=== PATIENT | male | born 1940 | race Caucasian/White ===

== ENCOUNTER → 2016-07-09 | Outpatient (CLI) | payer MEDICARE, BC ==
[~2016-07-09] MED LIST: COUM2.5T11 PO; DICY1CAP8 PO; DOXA1TAB72 PO; METO25TA74 PO; METO5TAB2 PO; METR1GEL4 TOP; MINO100C PO; MIRA3350 PO; MONT10TA2 PO; NEUR300C PO; NORV5TAB PO; OXYB5TAB PO; PERC5TAB6 PO; POLY33502 PO; PREV30CA11 PO; REFR1DRO6 OU; SALI0.653; SIMV10TA2 PO; TYLE325T5 PO; WARF-23 PO; [UNRECOGNIZED DRUG - CODE] OU
[2016-07-09 16:57] LABS: CALCIUM LEVEL 8.6 MG/DL (8.8-10.2); CREATININE FOR GFR 1.28 MG/DL (0.70-1.30); GLOMERULAR FILTRATION RATE 57.9 (>42); POTASSIUM SERUM 4.7 MEQ/L (3.5-5.1)
== END ==
LOC: M LAB 15:29
PROVIDERS: ATTEND Internal Medicine Cardiovascular Disease
DX: E87.5 Hyperkalemia (principal)

== ENCOUNTER 2016-07-23 07:47 | Emergency (ER) | payer MEDICARE, BC ==
[~2016-07-23] VITALS: Ht 175.3 cm; Wt 101.6 kg
[2016-07-23] MEDS ORDERED: DETR4CAP10 PO (08:33)
[2016-07-23 09:21] LABS: BASO % 0.9 % (0.0-1.0); EOS # 0.2 K/mm3 (0.0-0.50); EOS % 3.6 % (0.0-3.0); LARGE UNSTAINED CELL # 0.2 K/mm3 (0.0-0.4); LARGE UNSTAINED CELL % 2.8 % (0.0-4.0); LYMPH # 0.7 K/mm3 (1.5-4.5); LYMPH % 11.9 % (24.0-44.0); MEAN CORPUSCULAR HEMOGLOBIN 33.8 pg (27.0-33.0); MEAN CORPUSCULAR HGB CONC 34.2 g/dl (32.0-36.5); MEAN CORPUSCULAR VOLUME 98.8 fl (80.0-96.0); MONO # 0.4 K/mm3 (0.0-0.8); MONO % 7.7 % (0.0-5.0); NEUTROPHILS % 73.1 % (36.0-66.0); PLATELET COUNT, AUTOMATED 168 k/mm3 (150-450); WHITE BLOOD COUNT 5.4 K/mm3 (4.0-10.0)
[2016-07-23 09:52] LABS: ANION GAP 6 MEQ/L (8-16); BLOOD UREA NITROGEN 22 MG/DL (7-18); CALCIUM LEVEL 8.6 MG/DL (8.8-10.2); CARBON DIOXIDE LEVEL 29 MEQ/L (21-32); CHLORIDE LEVEL 103 MEQ/L (98-107); CREATININE FOR GFR 1.19 MG/DL (0.70-1.30); GLOMERULAR FILTRATION RATE > 60.0 (>42); GLUCOSE, FASTING 110 MG/DL (83-110); POTASSIUM SERUM 4.5 MEQ/L (3.5-5.1); SODIUM LEVEL 138 MEQ/L (136-145)
--- NOTE | 2016-07-23 10:04 | REP ---
PA and lateral chest: Comparison is 09/14/2014. There are no infiltrates, effusions, or masses. The lung rodriguez are clear and unchanged. Cardiac size is upper normal. The ileana, mediastinum, and bony thorax are unremarkable. There is an indwelling central venous catheter entering from right with the tip in the superior vena cava in satisfactory location, unchanged. Impression: No acute cardiopulmonary findings. Indwelling central venous catheter, unchanged. Signed by Rai Cano MD 07/23/2016 09:55 A
[2016-07-23] MEDS ORDERED: ISOVUE-370 76% 100ML VIAL (Q9967) As Ordered ONE (12:48)
--- NOTE | 2016-07-23 13:26 | REP ---
Clinical: Left upper quadrant pain with history of lymphoma. Technique: Axial contrast enhanced images from the lung bases to the pubic symphysis using 100 ml Isovue 370 intravenous contrast material with coronal and sagittal re-formations and delayed images of the abdomen. Comparison: 10/07/2005. Findings: Lung bases are essentially clear with minimal posterobasilar dependent changes in the right lower lobe. Cardiomegaly suggested. Liver, spleen, pancreas, gallbladder, right adrenal gland and kidney appear relatively normal; subcentimeter hepatic cyst identified in the right lobe. An 18 mm low density lesion along the inferior pole of the right kidney likely represents cyst. The patient is status post total left nephrectomy with normal appearance to the renal fossa and no residual or recurrent mass lesion or adenopathy. The enteric system demonstrates fecal stasis without bowel obstruction or acute inflammatory process. Pelvis demonstrates normal bladder and prostate gland. No ascites. No free air. No adenopathy. Surrounding musculoskeletal structures demonstrate degenerative changes. Impression: 1. 18 mm low density lesion along the inferior pole of the right kidney likely represents cyst and may be followed/evaluated by ultrasound. 2. Moderate diffuse fecal stasis. 3. Postsurgical changes without evidence for ascites, recurrence, mass lesion or adenopathy. 4. No acute intra-abdominal or pelvic pathology appreciated. Signed by Varun Navarro MD 07/23/2016 01:18 P
[2016-07-23] MEDS ORDERED: MIRA3350 PO (14:23)
--- NOTE | 2016-07-23 14:27 | ECGEPIP ---
Stationary ECG Study [facility] - ED Test Date: 2016-07-23 Pat Name: EMMA WELLINGTON Department: Room: - Gender: M Disability Case Manager: JT : 1940 Requested By: Reynaldo Veronica Order Number: [id number] Reading MD: Julianna Chun Measurements Intervals [place] Rate: 56 P: NM: 0 QRS: 2 QRSD: 88 T: 20 QT: 435 QTc: 420 Interpretive Statements ATRIAL FIBRILLATION WITH SLOW VENTRICULAR RESPONSE ABNORMAL RHYTHM ECG SIMILAR 09/14/14 Electronically Signed On 07-23-2016 14:27:43 EDT by Julianna Chun
--- NOTE | 2016-07-23 14:30 | ECGEPIP ---
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
[2016-07-23 14:45] VITALS: BP 184/81
--- NOTE | 2016-07-25 08:09 | ED PDOC ---
Post-Departure Follow-Up radiology report faxed to Julianna Mckeon MD July 25, 2016 08:09
== END 2016-07-23 14:49 | disposition home or self-care (01) ==
LOC: M ED 09:44
DX: K59.00 Constipation, unspecified (principal); R07.89 Other chest pain; I48.91 Unspecified atrial fibrillation; G47.30 Sleep apnea, unspecified; N40.1 Benign prostatic hyperplasia with lower urinary tract symptoms; Z85.9 Personal history of malignant neoplasm, unspecified; Z95.828 Presence of other vascular implants and grafts; Z79.02 Long term (current) use of antithrombotics/antiplatelets; Z79.899 Other long term (current) drug therapy
CPT/HCPCS: 36415; 71020; 74177; 80048; 82550; 82553; 84484; 85025; 93005; 93041; 94760; 99285; Q9967

== ENCOUNTER → 2016-08-06 | Outpatient (CLI) | payer OTHER ==
[~2016-08-06] MED LIST changes: +DETR4CAP10 PO
--- NOTE | 2016-08-06 15:08 | REP ---
Three-phase bone scan: History: Pain in the right knee, question loosening of total right knee prosthesis. Right knee replacement 2 years prior. Recent fall history. Technique: 21.3 mCi of technetium 99m MDP is injected and standard three-phase imaging of the knees is acquired. Scintigraphic findings: Anterior and posterior flow study is normal. Blood pool images demonstrate some early photopenia about the right knee corresponding to the prosthetic components, but no definite hyperemic focus. Delayed scan images demonstrate mild arthritic uptake in the patellofemoral compartment of the left knee consistent with osteoarthritis. There is also some medial compartment left knee uptake. There is bone prosthesis interface uptake associated with the right knee prosthetic components. There is no scintigraphic evidence to suggest loosening or infection. Impression: Expected degree of bone prosthetic interface uptake on the right. Mild arthritic uptake in the left knee. Signed by Sanket Madrigal MD 08/06/2016 04:31 P
== END ==
LOC: M RAD 10:27
PROVIDERS: ATTEND Orthopaedic Surgery
DX: M25.561 Pain in right knee (principal)

== ENCOUNTER → 2016-08-26 | Outpatient (REF) | payer MEDICARE, BC ==
[~2016-08-26] MED LIST changes: +BREO1INH INH
[2016-08-26 19:01] LABS: PERCENT SATURATION 28.2 % (19.7-37.4)
== END ==
LOC: M LAB REF 17:34
PROVIDERS: ATTEND Internal Medicine Nephrology
DX: D64.9 Anemia, unspecified (principal)

== ENCOUNTER → 2016-08-28 | Outpatient (CLI) | payer MEDICARE, BC ==
[~2016-08-28] VITALS: Ht 172.7 cm; Wt 100.7 kg
[~2016-08-28] MED LIST changes: -COUM2.5T11 PO; +COUM2.5T17 PO; +DETR4CAP PO; -DETR4CAP10 PO; +LIDOCAINE 2% INJ 100 MG/5 ML SDV (FOR ANES.) As Ordered ONE; +METO1TAB32 PO; -METO25TA74 PO; -MINO100C PO; +MINO100C4 PO; +NS 1,000 ML IV ONE; +PERC5TAB12 PO; -PERC5TAB6 PO; +PREV1CAP PO; -PREV30CA11 PO; +PROPOFOL 200 MG/20 ML VIAL As Ordered ONE; +SALI0.6523; -SALI0.653
--- NOTE | 2016-08-28 11:01 | ROOR ---
Patient Name: Sj Victoria Procedure Date: 08/28/2016 10:47 AM Date of : 1940 Age: 76 Room: [facility] Gender: Male Note Status: Finalized Procedure: Upper GI endoscopy Indications: Suspected esophageal reflux Providers: James Meeks Jr, MD Referring MD: Carri Ventura DO Requesting Provider: Medicines: Propofol per Anesthesia Complications: No immediate complications. Procedure: Pre-Anesthesia Assessment: - Prior to the procedure, a History and Physical was performed, and patient medications and allergies were reviewed. The patient is competent. The risks and benefits of the procedure and the sedation options and risks were discussed with the patient. All questions were answered and informed consent was obtained. Patient identification and proposed procedure were verified by the physician and the nurse in the pre-procedure area and in the procedure room. Mental Status Examination: alert and oriented. Airway Examination: normal oropharyngeal airway and neck mobility. Respiratory Examination: clear to auscultation. CV Examination: normal. ASA Grade Assessment: II - A patient with mild systemic disease. After reviewing the risks and benefits, the patient was deemed in satisfactory condition to undergo the procedure. The anesthesia plan was to use moderate sedation / analgesia (conscious sedation). Immediately prior to administration of medications, the patient was re-assessed for adequacy to receive sedatives. The heart rate, respiratory rate, oxygen saturations, blood pressure, adequacy of pulmonary ventilation, and response to care were monitored throughout the procedure. The physical status of the patient was re-assessed after the procedure. The Endoscope was introduced through the mouth, and advanced to the second part of duodenum. The upper GI endoscopy was accomplished without difficulty. The patient tolerated the procedure well. Findings: The upper third of the esophagus, middle third of the esophagus and lower third of the esophagus were normal. A small hiatal hernia was present. The cardia, gastric fundus, gastric body, gastric antrum and prepyloric region of the stomach were normal. The duodenal bulb, first portion of the duodenum and second portion of the duodenum were normal. Impression: - Normal upper third of esophagus, middle third of esophagus and lower third of esophagus. - Small hiatal hernia. - Normal cardia, gastric fundus, gastric body, antrum and prepyloric region of the stomach. - Normal duodenal bulb, first portion of the duodenum and second portion of the duodenum. - No specimens collected. Recommendation: - Discharge patient to home (ambulatory). - Return to my office in 2 weeks. James Meeks MD James Meeks Jr, MD 08/28/2016 11:00:58 AM This report has been signed electronically. Number of Addenda: 0 Note Initiated On: 08/28/2016 10:47 AM Estimated Blood Loss: Estimated blood loss: none.
--- NOTE | 2016-08-28 11:29 | ROOR ---
Patient Name: Sj Victoria Procedure Date: 08/28/2016 10:48 AM Date of : 1940 Age: 76 Room: [facility] Gender: Male Note Status: Finalized Procedure: Colonoscopy Indications: High risk colon cancer surveillance: Personal history of colonic polyps Providers: James Meeks Jr, MD Referring MD: Carri Ventura DO Requesting Provider: Medicines: Propofol per Anesthesia Complications: No immediate complications. Procedure: Pre-Anesthesia Assessment: - Prior to the procedure, a History and Physical was performed, and patient medications and allergies were reviewed. The patient is competent. The risks and benefits of the procedure and the sedation options and risks were discussed with the patient. All questions were answered and informed consent was obtained. Patient identification and proposed procedure were verified by the physician and the nurse in the pre-procedure area and in the procedure room. Mental Status Examination: alert and oriented. Airway Examination: normal oropharyngeal airway and neck mobility. Respiratory Examination: clear to auscultation. CV Examination: normal. ASA Grade Assessment: II - A patient with mild systemic disease. After reviewing the risks and benefits, the patient was deemed in satisfactory condition to undergo the procedure. The anesthesia plan was to use moderate sedation / analgesia (conscious sedation). Immediately prior to administration of medications, the patient was re-assessed for adequacy to receive sedatives. The heart rate, respiratory rate, oxygen saturations, blood pressure, adequacy of pulmonary ventilation, and response to care were monitored throughout the procedure. The physical status of the patient was re-assessed after the procedure. The Colonoscope was introduced through the anus and advanced to the cecum, identified by appendiceal orifice and ileocecal valve. The colonoscopy was performed without difficulty. The patient tolerated the procedure well. The quality of the bowel preparation was adequate and good. Findings: The perianal and digital rectal examinations were normal. Pertinent negatives include normal sphincter tone, no palpable rectal lesions and no anal lesion or abnormality was detected. Multiple small and large-mouthed diverticula were found in the sigmoid colon. Multiple polyps were found in the recto-sigmoid colon, sigmoid colon, transverse colon and ascending colon. The polyps were small in size. These polyps were removed with a jumbo cold forceps. Resection was complete, but the polyp tissue was only partially retrieved. The rectum, cecum, appendiceal orifice and ileocecal valve appeared normal. Impression: - Diverticulosis in the sigmoid colon. - Multiple small polyps at the recto-sigmoid colon, in the sigmoid colon, in the transverse colon and in the ascending colon, removed with a jumbo cold forceps. Complete resection. Partial retrieval. - The rectum, cecum, appendiceal orifice and ileocecal valve are normal. Recommendation: - Discharge patient to home (ambulatory). - Repeat colonoscopy in 3 - 5 years for surveillance. James Meeks MD James Meeks Jr, MD 08/28/2016 11:29:19 AM This report has been signed electronically. Number of Addenda: 0 Note Initiated On: 08/28/2016 10:48 AM Estimated Blood Loss: Estimated blood loss: none.
[2016-08-28 11:55] VITALS: BP 163/90
== END | disposition home or self-care (01) ==
LOC: M OPP 09:38
PROVIDERS: ATTEND Surgery
DX: Z12.11 Encounter for screening for malignant neoplasm of colon (principal); D12.7 Benign neoplasm of rectosigmoid junction; D12.5 Benign neoplasm of sigmoid colon; D12.3 Benign neoplasm of transverse colon; D12.2 Benign neoplasm of ascending colon; K57.30 Diverticulosis of large intestine without perforation or abscess without bleeding; Z86.010 Personal history of colon polyps; R12 Heartburn; K21.9 Gastro-esophageal reflux disease without esophagitis; K44.9 Diaphragmatic hernia without obstruction or gangrene; I71.4 Abdominal aortic aneurysm, without rupture; R00.8 Other abnormalities of heart beat; I48.91 Unspecified atrial fibrillation; I12.9 Hypertensive chronic kidney disease with stage 1 through stage 4 chronic kidney disease, or unspecified chronic kidney disease; E78.5 Hyperlipidemia, unspecified; K57.92 Diverticulitis of intestine, part unspecified, without perforation or abscess without bleeding; K58.9 Irritable bowel syndrome, unspecified; R23.3 Spontaneous ecchymoses; C85.90 Non-Hodgkin lymphoma, unspecified, unspecified site; Z92.21 Personal history of antineoplastic chemotherapy; M19.90 Unspecified osteoarthritis, unspecified site; M54.9 Dorsalgia, unspecified; M25.60 Stiffness of unspecified joint, not elsewhere classified; J45.909 Unspecified asthma, uncomplicated; R42 Dizziness and giddiness; J44.9 Chronic obstructive pulmonary disease, unspecified; G47.30 Sleep apnea, unspecified; G47.8 Other sleep disorders; R06.83 Snoring; N18.9 Chronic kidney disease, unspecified; N40.1 Benign prostatic hyperplasia with lower urinary tract symptoms; Z90.5 Acquired absence of kidney; L40.9 Psoriasis, unspecified; L30.9 Dermatitis, unspecified; Z85.828 Personal history of other malignant neoplasm of skin; Z80.3 Family history of malignant neoplasm of breast; Z88.8 Allergy status to other drugs, medicaments and biological substances; Z79.01 Long term (current) use of anticoagulants; Z79.899 Other long term (current) drug therapy

== ENCOUNTER → 2016-09-23 | Outpatient (CLI) | payer MEDICARE, BC ==
[~2016-09-23] MED LIST changes: -LIDOCAINE 2% INJ 100 MG/5 ML SDV (FOR ANES.) As Ordered ONE; -NS 1,000 ML IV ONE; -PROPOFOL 200 MG/20 ML VIAL As Ordered ONE
--- NOTE | 2016-09-23 15:56 | REP ---
PA and lateral chest: Comparison is 07/23/2016. The lung rodriguez are clear. Cardiac size is upper normal, unchanged. The ileana, mediastinum, and bony thorax are unchanged unremarkable. An indwelling right IJ central venous catheter is again identified with the tip in the superior vena cava in satisfactory location. Impression: Essentially negative chest. No interval change. Signed by Rai Cano MD 09/23/2016 03:49 P
[2016-09-23 18:08] LABS: CALCIUM LEVEL 8.7 MG/DL (8.8-10.2); CREATININE FOR GFR 1.43 MG/DL (0.70-1.30); GLOMERULAR FILTRATION RATE 50.9 (>42); POTASSIUM SERUM 4.6 MEQ/L (3.5-5.1)
--- NOTE | 2016-09-23 21:57 | ECGEPIP ---
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
== END ==
LOC: M LAB 14:59
PROVIDERS: ATTEND Ophthalmology
DX: I10 Essential (primary) hypertension (principal); E78.5 Hyperlipidemia, unspecified; I48.91 Unspecified atrial fibrillation

== ENCOUNTER → 2016-09-23 | Outpatient (CLI) | payer MEDICARE, BC ==
[2016-09-23 18:25] LABS: CALCIUM LEVEL 8.5 MG/DL (8.8-10.2); CREATININE FOR GFR 1.48 MG/DL (0.70-1.30); GLOMERULAR FILTRATION RATE 48.9 (>42); POTASSIUM SERUM 4.6 MEQ/L (3.5-5.1)
== END ==
LOC: M LAB 15:05
PROVIDERS: ATTEND Internal Medicine Cardiovascular Disease
DX: E87.5 Hyperkalemia (principal)

== ENCOUNTER → 2016-11-26 | Outpatient (REF) | payer MEDICARE, BC | LOC: M LAB REF 16:13 | PROVIDERS: ATTEND Internal Medicine | DX: C82.99 Follicular lymphoma, unspecified, extranodal and solid organ sites (principal) ==

== ENCOUNTER 2017-08-07 14:17 | Emergency (ER) | payer MEDICARE, BC ==
[2017-08-07 15:17] LABS: BASO % 0.6 % (0.0-1.0); EOS # 0.2 10^3/uL (0.0-0.50); EOS % 3.6 % (0.0-3.0); HEMATOCRIT 40.1 % (42.0-52.0); HEMOGLOBIN 13.4 g/dl (13.5-17.5); IMMATURE GRANULOCYTE % 0.6 % (0-3.0); LYMPH # 0.8 10^3/uL (1.5-4.5); LYMPH % 12.3 % (24.0-44.0); MEAN CORPUSCULAR HEMOGLOBIN 32.6 pg (27.0-33.0); MEAN CORPUSCULAR HGB CONC 33.4 g/dl (32.0-36.5); MEAN CORPUSCULAR VOLUME 97.6 fl (80.0-96.0); MONO # 0.6 10^3/uL (0.0-0.8); MONO % 8.6 % (0.0-5.0); NEUTROPHILS # 4.7 10^3/uL (1.8-7.7); NEUTROPHILS % 74.3 % (36.0-66.0); PLATELET COUNT, AUTOMATED 177 10^3/uL (150-450); RED BLOOD COUNT 4.11 10^6/uL (4.30-6.10); RED CELL DISTRIBUTION WIDTH 12.4 % (11.5-14.5); WHITE BLOOD COUNT 6.4 10^3/uL (4.0-10.0)
[2017-08-07 15:35] LABS: ALBUMIN 3.5 GM/DL (3.2-5.2); ALBUMIN/GLOBULIN RATIO 1.25 (1.00-1.93); ALKALINE PHOSPHATASE 105 U/L (45-117); ALT/SGPT 22 U/L (12-78); ANION GAP 4 MEQ/L (8-16); AST/SGOT 25 U/L (7-37); BILIRUBIN,DIRECT 0.1 MG/DL (0.0-0.2); BILIRUBIN,TOTAL 0.4 MG/DL (0.2-1.0); BLOOD UREA NITROGEN 24 MG/DL (7-18); CALCIUM LEVEL 8.3 MG/DL (8.8-10.2); CARBON DIOXIDE LEVEL 31 MEQ/L (21-32); CHLORIDE LEVEL 103 MEQ/L (98-107); CREATININE FOR GFR 1.29 MG/DL (0.70-1.30); GLOMERULAR FILTRATION RATE 57.2 (>42); GLUCOSE, FASTING 132 MG/DL (70-100); POTASSIUM SERUM 4.7 MEQ/L (3.5-5.1); SODIUM LEVEL 138 MEQ/L (136-145); TOTAL PROTEIN 6.3 GM/DL (6.4-8.2)
[2017-08-07 15:37] LABS: CK-MB VALUE MASS 1.9 NG/ML (<3.6); CPK CREATINE PHOSPHOKINASE 73 U/L (39-308); TROPONIN I < 0.02 NG/ML (< 0.10)
[2017-08-07 16:03] LABS: INR 2.07
[2017-08-07 16:04] LABS: PARTIAL THROMBOPLASTIN TIME 38.3 SECONDS (26.8-37.9)
[2017-08-07] MEDS: NS 1,000 ML IV (17:08)
== END 2017-08-07 17:10 | disposition short-term general hospital (02) ==
LOC: M ED 14:17
DX: S06.5X0A Traumatic subdural hemorrhage without loss of consciousness, initial encounter (principal); M25.512 Pain in left shoulder; W19.XXXA Unspecified fall, initial encounter; Y92.099 Unspecified place in other non-institutional residence as the place of occurrence of the external cause; Y93.9 Activity, unspecified; Y99.9 Unspecified external cause status; I48.91 Unspecified atrial fibrillation; Z98.61 Coronary angioplasty status; M47.812 Spondylosis without myelopathy or radiculopathy, cervical region; M47.813 Spondylosis without myelopathy or radiculopathy, cervicothoracic region; Z79.01 Long term (current) use of anticoagulants; Z79.899 Other long term (current) drug therapy; Z88.8 Allergy status to other drugs, medicaments and biological substances
CPT/HCPCS: 71045

== ENCOUNTER 2017-08-29 07:46 | Emergency (ER) | payer MEDICARE, BC ==
[2017-08-29 09:52] LABS: HEMATOCRIT 37.6 % (42.0-52.0); HEMOGLOBIN 12.6 g/dl (13.5-17.5); MEAN CORPUSCULAR HEMOGLOBIN 33.2 pg (27.0-33.0); MEAN CORPUSCULAR HGB CONC 33.5 g/dl (32.0-36.5); MEAN CORPUSCULAR VOLUME 99.2 fl (80.0-96.0); PLATELET COUNT, AUTOMATED 160 10^3/uL (150-450); RED BLOOD COUNT 3.79 10^6/uL (4.30-6.10); RED CELL DISTRIBUTION WIDTH 13.3 % (11.5-14.5); WHITE BLOOD COUNT 12.3 10^3/uL (4.0-10.0)
[2017-08-29 10:12] LABS: ANION GAP 6 MEQ/L (8-16); BLOOD UREA NITROGEN 30 MG/DL (7-18); CARBON DIOXIDE LEVEL 32 MEQ/L (21-32); CHLORIDE LEVEL 97 MEQ/L (98-107); GLUCOSE, FASTING 101 MG/DL (70-100); POTASSIUM SERUM 4.3 MEQ/L (3.5-5.1); SODIUM LEVEL 135 MEQ/L (136-145)
== END 2017-08-29 10:38 | disposition short-term general hospital (02) ==
LOC: M ED 07:46
DX: I62.02 Nontraumatic subacute subdural hemorrhage (principal); I25.10 Atherosclerotic heart disease of native coronary artery without angina pectoris; I48.91 Unspecified atrial fibrillation; N40.0 Benign prostatic hyperplasia without lower urinary tract symptoms; K21.9 Gastro-esophageal reflux disease without esophagitis; G47.33 Obstructive sleep apnea (adult) (pediatric); I11.9 Hypertensive heart disease without heart failure
CPT/HCPCS: 70450

== ENCOUNTER → 2018-07-23 | Outpatient (REF) | payer MEDICARE, BC ==
[~2018-07-23] MED LIST changes: +ACET500T15 PO; +AMLO25TA PO; +AMLO5TAB6 PO; +COMMENT; +DOXA1TAB67 PO; -DOXA1TAB72 PO; +LANS15CA PO; +MULTCAP PO; +NITR0.3S SL; +NITR4TASL SL; +POLY1POW38 PO; -POLY33502 PO; +PROAAER10 INH; -SALI0.6523; +SALI0.6528; +TOLT4CAP3 PO; +VOLT1GEL15 TD; +[UNRECOGNIZED DRUG - CODE] MC
[2018-07-23 14:30] LABS: BASO # 0.1 10^3/uL (0.0-0.2); BASO % 1.4 % (0.0-1.0); EOS # 0.2 10^3/uL (0.0-0.50); EOS % 4.5 % (0.0-3.0); HEMATOCRIT 42.5 % (42.0-52.0); LYMPH # 0.9 10^3/uL (1.5-4.5); LYMPH % 16.5 % (24.0-44.0); MEAN CORPUSCULAR HEMOGLOBIN 34.1 pg (27.0-33.0); MEAN CORPUSCULAR HGB CONC 32.9 g/dl (32.0-36.5); MEAN CORPUSCULAR VOLUME 103.4 fl (80.0-96.0); MONO # 0.6 10^3/uL (0.0-0.8); NEUTROPHILS # 3.4 10^3/uL (1.8-7.7); NEUTROPHILS % 65.4 % (36.0-66.0); PLATELET COUNT, AUTOMATED 147 10^3/uL (150-450); RED BLOOD COUNT 4.11 10^6/uL (4.30-6.10); WHITE BLOOD COUNT 5.2 10^3/uL (4.0-10.0)
== END ==
LOC: M LAB REF 13:58
PROVIDERS: ATTEND Internal Medicine Nephrology
DX: N18.3 Chronic kidney disease, stage 3 (moderate) (principal)

== ENCOUNTER 2018-07-25 03:28 | Inpatient (IN) | payer MEDICARE, BC ==
[~2018-07-25] VITALS: Ht 172.7 cm; Wt 96.0 kg
[~2018-07-25 03:28] MED LIST changes: -AMLO25TA PO; -AMLO5TAB6 PO; -COMMENT; -LANS15CA PO; -MULTCAP PO; -NITR0.3S SL; -NITR4TASL SL; -PROAAER10 INH; -TOLT4CAP3 PO; -[UNRECOGNIZED DRUG - CODE] MC
--- NOTE | 2018-07-25 03:51 | REPVR ---
EXAM: CT Head Without Contrast EXAM DATE/TIME: 07/25/2018 3:41 AM CLINICAL HISTORY: 78 years old, male; Signs and symptoms; Weakness, extremity; Left; Additional info: CVA - nursing interventions must not delay CT TECHNIQUE: Imaging protocol: Axial computed tomography images of the head without contrast. Radiation optimization: All CT scans at this facility use at least one of these dose optimization techniques: automated exposure control; mA and/or kV adjustment per patient size (includes targeted exams where dose is matched to clinical indication); or iterative reconstruction. Other technique: STROKE PROTOCOL was implemented. COMPARISON: CT Head without contrast 08/29/2017 8:08 AM FINDINGS: Brain: Normal. No hemorrhage. No significant white matter disease. No edema. Cortical thompson-white matter differentiation is preserved. Ventricles: Normal. No ventriculomegaly. Bones/joints: Unremarkable. No acute fracture. Sinuses: Visualized sinuses are unremarkable. No fluid levels. Mastoid air cells: Visualized mastoid air cells are well aerated. No mastoid effusion. Soft tissues: Unremarkable. Vasculature: There is atherosclerotic calcification of the cerebral arteries. IMPRESSION: No CT changes to suggest acute infarct at this time. ASSESSMENT: ASPECTS (Taylor Stroke Program Early CT Score) is 10. Electronically signed by: Adelaida Doyle On 07/25/2018 03:51:04 AM
[2018-07-25 04:09] LABS: BASO # 0.1 10^3/uL (0.0-0.2); BASO % 1.2 % (0.0-1.0); EOS # 0.3 10^3/uL (0.0-0.50); EOS % 5.3 % (0.0-3.0); HEMOGLOBIN 13.4 g/dl (13.5-17.5); LYMPH % 16.5 % (24.0-44.0); MEAN CORPUSCULAR HEMOGLOBIN 32.5 pg (27.0-33.0); MEAN CORPUSCULAR HGB CONC 33.5 g/dl (32.0-36.5); MEAN CORPUSCULAR VOLUME 97.1 fl (80.0-96.0); MONO # 0.8 10^3/uL (0.0-0.8); MONO % 12.7 % (0.0-5.0); NEUTROPHILS # 3.9 10^3/uL (1.8-7.7); PLATELET COUNT, AUTOMATED 181 10^3/uL (150-450); RED BLOOD COUNT 4.12 10^6/uL (4.30-6.10); WHITE BLOOD COUNT 6.1 10^3/uL (4.0-10.0)
[2018-07-25 04:20] LABS: INR 1.8; PARTIAL THROMBOPLASTIN TIME 37.7 SECONDS (25.4-37.6); PROTHROMBIN TIME 21.2 SECONDS (12.1-14.4)
[2018-07-25 04:36] LABS: BLOOD UREA NITROGEN 22 MG/DL (7-18); CALCIUM LEVEL 8.5 MG/DL (8.8-10.2); CARBON DIOXIDE LEVEL 30 MEQ/L (21-32); CHLORIDE LEVEL 102 MEQ/L (98-107); CPK CREATINE PHOSPHOKINASE 66 U/L (39-308); CREATININE FOR GFR 1.25 MG/DL (0.70-1.30); GLOMERULAR FILTRATION RATE 59.2 (>35); GLUCOSE, FASTING 104 MG/DL (70-100); MB/CK RELATIVE INDEX 2.88 (< OR =4); SODIUM LEVEL 139 MEQ/L (136-145); TROPONIN I < 0.02 NG/ML (< 0.10)
[2018-07-25] MEDS ORDERED: LANS15CA PO (04:50)
[2018-07-25] MEDS ORDERED: AMLO25TA PO (04:50)
[2018-07-25] MEDS ORDERED: MULTCAP PO (04:50)
[2018-07-25] MEDS ORDERED: [UNRECOGNIZED DRUG - CODE] MC (04:50)
[2018-07-25] MEDS ORDERED: NITR0.3S SL (04:50)
[2018-07-25] MEDS ORDERED: TOLT4CAP3 PO (04:51)
--- NOTE | 2018-07-25 05:53 | REPVR ---
EXAM: MR Angiogram Head Without Contrast, Arteries EXAM DATE/TIME: 07/25/2018 4:23 AM CLINICAL HISTORY: 78 years old, male; Signs and symptoms; Weakness; Patient HX: HX lymphoma; Additional info: Left sided weakness TECHNIQUE: Imaging protocol: MR angiogram head without contrast. Exam focused on the arteries. COMPARISON: CT Head without contrast 07/25/2018 3:34 AM FINDINGS: Limitations: Examination is limited by motion artifact. Right internal carotid artery: Unremarkable. Intracranial segment is patent with no significant stenosis. No aneurysm. Right anterior cerebral artery: Right A1 segment is hypoplastic. No occlusion or significant stenosis. No aneurysm. Right middle cerebral artery: Unremarkable. No occlusion or significant stenosis. No aneurysm. Right posterior cerebral artery: Unremarkable. No occlusion or significant stenosis. No aneurysm. Right vertebral artery: Unremarkable. No occlusion or significant stenosis. No aneurysm. Left internal carotid artery: Unremarkable. Intracranial segment is patent with no significant stenosis. No aneurysm. Left anterior cerebral artery: Unremarkable. No occlusion or significant stenosis. No aneurysm. Left middle cerebral artery: Unremarkable. No occlusion or significant stenosis. No aneurysm. Left posterior cerebral artery: Unremarkable. No occlusion or significant stenosis. No aneurysm. Left vertebral artery: Unremarkable. No occlusion or significant stenosis. No aneurysm. Basilar artery: Unremarkable. No occlusion or significant stenosis. No aneurysm. IMPRESSION: 1. No large vessel arterial occlusion. 2. MR Head was not submitted for evaluation. COMMENT: Verbally discussed with LEIGH Gallardo at 07/25/2018 5:51 AM EDT. Electronically signed by: Adelaida Doyle On 07/25/2018 05:53:02 AM
--- NOTE | 2018-07-25 06:10 | REPVR ---
EXAM: MR Head Without Contrast EXAM DATE/TIME: 07/25/2018 4:23 AM CLINICAL HISTORY: 78 years old, male; Signs and symptoms; Weakness, extremity; Left; Patient HX: HX, lymphoma, lt nephrectomy; Additional info: Left sided weakness TECHNIQUE: Imaging protocol: MR of the head without contrast. COMPARISON: MRA BRAIN W/O CONTRAST 07/25/2018 5:26 AM FINDINGS: Brain: Small acute infarct in the right villanueva radiata. Mild T2-hyperintense changes in the deep white matter which are nonspecific but suspicious for chronic small vessel ischemic disease. No acute intracranial hemorrhage. No mass effect. No midline shift. Ventricles: Normal. No ventriculomegaly. Bones/joints: Unremarkable. Soft tissues: Normal. Sinuses: Normal as visualized. No acute sinusitis. Mastoid air cells: Mild effusion in the right mastoid air cells. Orbits: Unremarkable. Other vasculature: Expected flow voids in the cerebral arteries. IMPRESSION: 1. Small acute infarct in the right villanueva radiata. 2. Mild T2-hyperintense changes in the deep white matter which are nonspecific but suspicious for chronic small vessel ischemic disease. Electronically signed by: Adelaida Doyle On 07/25/2018 06:09:59 AM
--- NOTE | 2018-07-25 06:35 | ECGEPIP ---
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
[2018-07-25] MEDS ORDERED: NITR4TASL SL (07:16)
[2018-07-25] MEDS ORDERED: MIRA3350 PO (07:16)
[2018-07-25] MEDS ORDERED: AMLO5TAB6 PO (07:16)
[2018-07-25] MEDS ORDERED: WARF-23 PO (07:18)
[2018-07-25] MEDS ORDERED: COMMENT (07:30)
[2018-07-25] MEDS ORDERED: PROAAER10 INH (07:31)
[2018-07-25] MEDS ORDERED: ALBUTEROL 90 MCG/ACT 8GM HFA INHALER INH PRN (08:00)
[2018-07-25] MEDS ORDERED: MIRALAX *UNIT DOSE* 17GM PACKET PO PRN (08:00)
[2018-07-25] MEDS ORDERED: NITROGLYCERIN 0.4 MG SUBL TABLET SL PRN (08:00)
[2018-07-25] MEDS ORDERED: ACETAMINOPHEN 500 MG TAB PO PRN (08:00)
--- NOTE | 2018-07-25 08:03 | HPEPDOC ---
General Date of Admission 07/25/18 Date of Service: July 25, 2018 Attending Physician: FADUMO TEJADA MD Chief Complaint The patient is a 78-year-old male admitted with a reason for visit of Neuro Issu e. Source: Patient, Family Exam Limitations: No limitations Timing/Duration: Other (, 6 PM yesterday) Severity: Moderate Associated Symptoms: Mechanical fall History of Present Illness 78 years old white male with past medical history of hypertension, A. fib, non-Hodgkin's lymphoma, status post nephrectomy was mowing his lawn when he developed a feeling of dragging his left leg at about 5 PM yesterday followed by left arm unsteadiness. He didn't think much of it and went to bed. He woke up at 3:00 to go to go to bathroom and he tripped on himself and fell. His left leg dragging was even worse so decided come to ER Home Medications Scheduled Amlodipine Besylate (Amlodipine Besylate) 5 Mg Tablet, 5 MG PO DAILY, (Reported) Gabapentin (Neurontin) 300 Mg Cap, 600 MG PO BID, (Reported) Lansoprazole (Prevacid) 30 Mg Cap, 30 MG PO BID, (Reported) Multivitamin (Multivitamins) 1 Each Capsule, 1 CAP PO DAILY, (Reported) Oxybutynin Chloride (Oxybutynin Chloride ER) 5 Mg Tab, 5 MG PO DAILY, (Reported) Simvastatin (Simvastatin) 10 Mg Tab, 10 MG PO QHS, (Reported) Tolterodine Tartrate (Tolterodine Tartrate ER) 4 Mg Cap.er.24h, 4 MG PO DAILY, (Reported) Warfarin Sodium (Coumadin) 2.5 Mg Tab, 2.5 MG PO 3XW, (Reported) QPM: UNSURE OF WHAT DAYS Warfarin Sodium (Warfarin Sodium) 5 Mg Tablet, 5 MG PO 4XWK, (Reported) QPM: UNSURE OF WHAT DAYS Scheduled PRN Acetaminophen (Acetaminophen) 500 Mg Tab, 1,000 MG PO Q8H PRN for PAIN, (Reported) Albuterol Sulfate (Proair Hfa) 8.5 Gm Hfa.aer.ad, 2 PUFF INH Q4H PRN for SHORTNESS OF BREATH, (Reported) Nitroglycerin (Nitrostat) 0.4 Mg Tab.subl, 0.4 MG SL NITRO PRN for CHEST PAIN, (Reported) Polyethylene Glycol 3350 (Miralax) 119 Gm Powder, 17 GM PO DAILY PRN for CONSTIPATION, (Reported) Miscellaneous Medications [Comment] , (Reported) PT IS BRINGING 2 TOPICAL MEDICATIONS FROM HOME. UNSURE OF WHAT THEY ARE AT TH IS TIME Allergies Coded Allergies: vincristine (Verified Allergy, Unknown, 07/25/18) neuropathy Past Medical History Medical History Hypertension, A. fib, non-Hodgkin's lymphoma Surgical History Left nephrectomy, right knee replacement, hemorrhoid operation Social History * Smoker: Denies Drugs: denies A-FIB/CHADSVASC A-FIB History Current/History of A-Fib/PAF?: Yes Current PO Anticoag Therapy: Yes Review of Systems Constitutional: Denies: Chills, Fever, Malaise, Night Sweats, Weakness, Fatigue, Weight Loss, Lethargy, Other Eyes: Denies: Pain, Vision change, Conjunctivae inflammation, Eyelid inflammation, Redness, Other ENT: Denies: Head Aches, Ear Pain, Dysphagia, Sinus Congestion, Post Nasal Drip, Sore Throat, Epistaxis, Other Symptoms Skin: Denies: Rash, Lesions, Jaundice, Bruising, Itching, Dry, Breakdown, Nail Changes, Other Pulmonary: Denies: Dyspnea, Cough, Pleuritic Chest Pain, Other Symptoms Cardiovascular: Denies: Chest Pain, Palpitations, Orthopnea, Paroxysmal Noc. Dyspnea, Edema, Lt Headedness, Other Symptoms Gastrointestinal: Denies: Nausea, Vomiting, Abdominal Pain, Diarrhea, C onstipation, Melena, Hematochezia, Other Symptoms Genitourinary: Denies: Dysuria, Frequency, Incontinence, Hematuria, Retention, Other Symptoms Hematologic: Denies: Bruising, Bleeding Excessively, Petecchia, Purpura, Enlarged Lymph Nodes, Other Hematologic Endocrine: Denies: Polydipsia, Polyphagia, Polyuria, Heat Intolerance, Cold I ntolerance, Other Endocrine Sx Musculoskeletal: Denies: Neck Pain, Back Pain, Shoulder Pain, Arm Pain, Hand Pain, Leg Pain, Foot Pain, Joint Pain, Muscle Pain, Spasms, Other Symptoms Neurological: Reports: Weakness Psych: Denies: Mood Normal, Anxiety, Depression, Memory Issues, Thoughts of Self Harm, Anger, Thoughts of Harming Other, Other Psych Physical Examination General Exam: Positive: Alert Eye Exam: Positive: PERRLA, Conjunctiva & lids normal ENT Exam: Positive: Atraumatic, Mucous membr. moist/pink Neck Exam: Positive: Supple, +2 carotid pulse wo bruit Chest Exam: Positive: Clear to auscultation, Normal air movement Heart Exam: Positive: Rate Normal, Normal S1, Normal S2 Abdomen Exam: Positive: Normal bowel sounds Extremity Exam: Positive: Normal pulses Skin Exam: Positive: Nl turgor and temperature Neuro Exam: Positive: Normal Gait, Normal Speech, Cranial Nerves 3-12 NL, Other (, 3/5 strength in the left upper extremity and left lower extremity) Vital Signs Vital Signs Date Time Temp Pulse Resp B/P (MAP) Pulse Ox O2 Delivery O2 Flow Rate FiO2 07/25/18 06:12 73 20 181/86 (117) 100 Room Air 07/25/18 03:28 98.2 Laboratory Data Labs 24H Laboratory Tests 2 07/25/18 04:00: Immature Granulocyte % (Auto) 0.3, White Blood Count 6.1, Red Blood Count 4.12L, Hemoglobin 13.4L, Hematocrit 40.0L, Mean Corpuscular Volume 97.1H, Mean Corpuscular Hemoglobin 32.5, Mean Corpuscular Hemoglobin Concent 33.5, Red Cell Distribution Width 12.5, Platelet Count 181, Neutrophils (%) (Auto) 64.0, Lymphocytes (%) (Auto) 16.5L, Monocytes (%) (Auto) 12.7H, Eosinophils (%) (Auto) 5.3H, Basophils (%) (Auto) 1.2H, Neutrophils # (Auto) 3.9, Lymphocytes # (Auto) 1.0L, Monocytes # (Auto) 0.8, Eosinophils # (Auto) 0.3, Basophils # (Auto) 0.1, Nucleated Red Blood Cells % (auto) 0.0, Prothrombin Time 21.2H, Prothromb Time International Ratio 1.80, Activated Partial Thromboplast Time 37.7H, Anion Gap 7L, Glomerular Filtration Rate 59.2, Blood Urea Nitrogen 22H, Creatinine 1.25, Sodium Level 139, Potassium Level 4.0, Chloride Level 102, Carbon Dioxide Level 30, Calcium Level 8.5L, Total Creatine Kinase 66, Creatine Kinase MB 2.0, Creatine Kinase MB Relative Index 2.88, Troponin I < 0.02 07/25/18 04:04: Bedside Glucose (Misc Panel) 118H CBC/BMP Laboratory Tests 07/25/18 04:00 Red Blood Count 4.12 L, Mean Corpuscular Volume 97.1 H, Mean Corpuscular Hemoglobin 32.5, Mean Corpuscular Hemoglobin Concent 33.5, Red Cell Distribution Width 12.5, Neutrophils (%) (Auto) 64.0, Lymphocytes (%) (Auto) 16.5 L, Monocytes (%) (Auto) 12.7 H, Eosinophils (%) (Auto) 5.3 H, Basophils (%) (Auto) 1.2 H, Neutrophils # (Auto) 3.9, Lymphocytes # (Auto) 1.0 L, Monocytes # (Auto) 0.8, Eosinophils # (Auto) 0.3, Basophils # (Auto) 0.1, Calcium Level 8.5 L, T otal Creatine Kinase 66 Problems (1) CVA (cerebral vascular accident) Status: Acute Problem Text: Neuro check every 4 hours Admit patient to PCU with telemetry Start Lovenox 1 mg/kg every 12 hours as patient's INR is subtherapeutic Continue Coumadin at 5 mg by mouth daily and adjust dose accordingly Daily PT/INR ADD Aspirin 325 mg by mouth daily Patient is already on statins Neurology consult with Dr. Grullon has been requested Will make changes in her management. Once we speak with the neurology PT, OT evaluation Echocardiogram Carotid Dopplers Possible transfer to rehabilitation once cleared medically (2) Uncontrolled hypertension Status: Acute Problem Text: . Will start hydralazine when necessary to control blood pressure to keep systolic and about 150 Further recommendations per neurology (3) Afib Status: Chronic Problem Text: Rate is under control slightly toward bradycardia side Continue Coumadin Lovenox have been added Telemetry monitoring Plan / VTE VTE Prophylaxis Ordered?: Yes FADUMO TEJADA MD July 25, 2018 08:03
[2018-07-25] MEDS ORDERED: hydrALAZINE INJ 20 MG/ML VIAL IV PRN (08:15)
--- NOTE | 2018-07-25 08:19 | REP ---
Clinical: Acute cerebrovascular accident . Comparison: 08/07/2017 . Findings: Echomr-E-Yrgx with tip in the SVC. Stable cardiomegaly. The lung rodriguez are clear without acute consolidation, effusion, or pneumothorax. Skeletal structures are intact. Impression: No acute cardiopulmonary process appreciated. Electronically Signed by Varun Navarro MD 07/25/2018 08:10 A
[2018-07-25] MEDS: amLODIPine 5 MG TAB PO SCH (08:41)
[2018-07-25] MEDS: GABAPENTIN 300 MG CAP PO SCH ×2 (08:42→22:01)
[2018-07-25] MEDS ORDERED: ASPIRIN 81 MG CHEW TABLET PO SCH (09:00)
[2018-07-25] MEDS ORDERED: ENOXAPARIN 100MG/1ML SYRINGE (J1650) SC SCH (09:00)
[2018-07-25 09:28] VITALS: BP 158/80
--- NOTE | 2018-07-25 09:33 | REP ---
Clinical: Acute cerebrovascular accident. Technique: Estrada scale and color Doppler evaluation using linear high frequency transducer Findings: Two-dimensional estrada scale and color images demonstrate moderate mixed atheromatous plaquing through the common carotid arteries extending to the proximal internal and external carotid arteries. Color Doppler interrogation demonstrates normal arterial wave patterns and velocities with elements of spectral broadening. Normal flow direction is appreciated in the bilateral vertebral arteries. RIGHT (cm/s) LEFT (cm/s) ICA peak systolic velocity 102.4 104.8 ICA diastolic velocity 33.2 26.0 ECA peak systolic velocity 75.3 64.0 CCA peak systolic velocity 65.4 70.4 ICA/CCA ratio 1.83 1.88 Impression: 1. Mild to moderate amounts of mixed atheromatous plaquing noted along with tortuous bilateral internal carotid arteries. 2. Based on set standards narrowing falls within the less than 50% range. Electronically Signed by Varun Navarro MD 07/25/2018 09:25 A
[2018-07-25] MEDS: TOLTERODINE TARTRATE 2 MG LA CAP (DETROL LA) PO SCH (10:49)
[2018-07-25] MEDS: oxyBUTYnin *DITROPAN XL* 5 MG TABCR PO SCH (10:49)
[2018-07-25 12:00] VITALS: BP 143/68
[2018-07-25 14:25] VITALS: BP 142/69
[2018-07-25] MEDS: WARFARIN SOD 5 MG TAB PO SCH (17:39)
[2018-07-25 20:00] VITALS: BP 126/76
[2018-07-25] MEDS: SIMVASTATIN 10 MG TAB PO SCH (22:01)
[2018-07-25] MEDS: ENOXAPARIN 100MG/1ML SYRINGE (J1650) SC SCH (22:01)
[2018-07-25 23:59] VITALS: BP 146/72
[2018-07-26] VITALS (8 sets, daily range): BP systolic 132–170; BP diastolic 60–89
[2018-07-26 02:34] LABS: HEMATOCRIT 38.7 % (42.0-52.0); MEAN CORPUSCULAR HEMOGLOBIN 33.5 pg (27.0-33.0); MEAN CORPUSCULAR HGB CONC 33.6 g/dl (32.0-36.5); MEAN CORPUSCULAR VOLUME 99.7 fl (80.0-96.0); PLATELET COUNT, AUTOMATED 165 10^3/uL (150-450); RED BLOOD COUNT 3.88 10^6/uL (4.30-6.10); WHITE BLOOD COUNT 5.8 10^3/uL (4.0-10.0)
[2018-07-26 02:40] LABS: INR 1.96; PROTHROMBIN TIME 22.7 SECONDS (12.1-14.4)
[2018-07-26 03:59] LABS: ALBUMIN 3.2 GM/DL (3.2-5.2); BILIRUBIN,TOTAL 0.4 MG/DL (0.2-1.0); CALCIUM LEVEL 8.6 MG/DL (8.8-10.2); CREATININE FOR GFR 1.4 MG/DL (0.70-1.30); GLOMERULAR FILTRATION RATE 51.9 (>35); POTASSIUM SERUM 4.3 MEQ/L (3.5-5.1); TOTAL PROTEIN 5.9 GM/DL (6.4-8.2)
[2018-07-26 08:53] LABS: THYROID STIMULATING HORMONE 1.46 uIU/ML (0.358-3.740)
[2018-07-26] MEDS ORDERED: guaiFENesin ER 600 MG TAB PO SCH (09:00)
[2018-07-26] MEDS: ENOXAPARIN 100MG/1ML SYRINGE (J1650) SC SCH ×2 (09:01→20:27)
[2018-07-26] MEDS: amLODIPine 5 MG TAB PO SCH (09:02)
[2018-07-26] MEDS: GABAPENTIN 300 MG CAP PO SCH ×2 (09:02→20:26)
[2018-07-26] MEDS: oxyBUTYnin *DITROPAN XL* 5 MG TABCR PO SCH (09:02)
[2018-07-26 10:26] LABS: HEMOGLOBIN A1c 6.2 %
[2018-07-26] MEDS: TOLTERODINE TARTRATE 2 MG LA CAP (DETROL LA) PO SCH (10:54)
--- NOTE | 2018-07-26 12:25 | ECHO ---
DATE OF SERVICE: 07/25/2018 AGE: 78. REFERRING PROVIDER: Fransisco Johansen MD PATIENT LOCATION: Progressive care unit (PCU), room 28. REASON FOR THE ECHOCARDIOGRAM: Cerebrovascular accident (CVA), atrial fibrillation. 2D MEASUREMENTS: IVS: 1.3 cm LV: 4.8 cm LVPW: 1.3 cm LA: 6.5 cm Aorta: 3.8 cm DOPPLER MEASUREMENTS: Mitral E: 1.1 Maximum tricuspid valve velocity: 2.3 m/s 2D COMMENTS: 1. Normal left ventricular size with mildly increased left ventricular wall thickness. Left ventricular systolic function is normal, estimated at 60% to 65%. 2. Markedly enlarged left atrium. The right atrium also appear to be enlarged. Normal right ventricle. The atrial septum appeared to be normal without evidence of defect or shunt. 3. Mildly dilated aortic root at 3.8 cm. 4. Trace pericardial effusion noted, no evidence of cardiac tamponade. 5. Mildly calcified aortic valve with normal leaflet excursion. Mildly calcified mitral annulus with normal anterior mitral valve leaflet motion. Normal tricuspid valve. The pulmonic valve and proximal pulmonary artery branches were not well visualized. 6. The inferior vena cava was not visualized. DOPPLER: It detects mild aortic regurgitation, moderate mitral regurgitation, and mild eccentric tricuspid regurgitation. The calculated pulmonary artery systolic pressure varies between 30-40 mmHg but could be higher. Assessment of the left ventricular diastolic function was limited in view of the underlying atrial fibrillation. IMPRESSION: 1. Normal global left ventricular systolic function with mild concentric left ventricular hypertrophy. Assessment of the left ventricular diastolic function was limited in view of the underlying atrial fibrillation. 2. Aortic valve sclerosis with mild aortic regurgitation but no aortic stenosis. 3. Mitral annulus calcification with severely dilated left atrium and moderate mitral regurgitation. 4. Mild tricuspid regurgitation with mild pulmonary hypertension. The right atrium was also dilated. 5. Trace pericardial effusion, no evidence of cardiac tamponade.
[2018-07-26] MEDS ORDERED: guaiFENesin 200 MG TAB PO ONE (13:00)
--- NOTE | 2018-07-26 14:25 | CR ---
DATE OF CARDIOLOGY CONSULTATION: 07/26/2018 REFERRING PHYSICIAN: Oscar Fuller MD REASON FOR CONSULTATION: Abnormal EKG, atrial fibrillation, cerebrovascular accident (CVA). HISTORY OF PRESENT ILLNESS: 78-year-old male, he sees Dr. Gutierrez and he was in the office last Thursday to check his INR and he was told to come back in about 4 weeks to recheck it as per pt. On Thursday, he was mowing his lawn and he felt that he was getting tired and things were getting heavier for him to finish doing the work and he stopped and went inside the house. At that time, he also has some minimal weakness he thinks on his left leg. He went to bed and around 3:00 he woke up to go to the bathroom and he tripped on himself and fell. He was having more weakness on the left lower extremity and also some weakness in the left upper extremity as per his who is in the room when I was seeing him this morning. He was brought down to the ER by his for further evaluation, he lives just around the corner. He was diagnosed with an acute small right-sided infarct. He was admitted for further management and monitoring. During the night, it was noted that he has a slow heart rate in the 50s with a pulse of 2.5 seconds and cardiology consult was called. When I saw Mr. Sj Victoria on the floor, he was supine in bed, in no acute distress and he was at the bedside as well as his nurse. He denies any chest pain, shortness of breath, palpitations, pedal edema, syncope or near-syncope. He denies any bleeding. He has no prior history of TIA/CVA. He has no nausea or vomiting, diarrhea, melena or hematemesis. He has not been coughing. PAST MEDICAL HISTORY: Positive for hypertension, hyperlipidemia, atrial fibrillation that has been chronic and persistent and for which she has been on Coumadin, gastroesophageal reflux disease, history of nephrectomy, no skin lymphoma that has been in remission. He denies any history of coronary artery disease, myocardial infarction, congestive heart failure, significant valvular heart disease, sudden cardiac , or coronary artery disease. PAST SURGICAL HISTORY: Positive for right knee replacement, left nephrectomy, and surgery done on his hemorrhoids. MEDICATIONS AT HOME - Amlodipine 5 mg p.o. daily - gabapentin 200 mg tablet and 600 mg by mouth (p.o.) twice a day - lansoprazole 30 mg by mouth twice a day - multivitamin one tablet by mouth daily - oxybutynin 5 mg p.o. daily - simvastatin 10 mg by mouth at time of sleep - tolterodine tartrate 4 mg by mouth daily - warfarin as directed - Tylenol as needed for pain - albuterol sulfate also as needed for shortness of breath - nitroglycerin sublingual as needed for chest pain - polyethylene glycol / MiraLAX as needed for constipation CURRENT MEDICATIONS: - simvastatin 10 mg by mouth before food - Lovenox 90 mg subcutaneous every 12 hours - warfarin 5 mg by mouth daily - amlodipine 5 mg by mouth daily - gabapentin 600 mg by mouth twice a day - Ditropan XL 5 mg by mouth daily - Detrol LA 4 mg by mouth daily - Tylenol 1000 mg every 8 hours as needed for pain - Ventolin HFA 2 puffs every 4 hours as needed for shortness of breath - nitroglycerin 0.4 mg sublingual as needed for chest pain - MiraLAX 1 package daily as needed for constipation - Robitussin tablet as needed 600 mg daily FAMILY HISTORY: Positive for heart disease. He has a brother with CAD. SOCIAL HISTORY: The patient lives with his and usually he goes to [place] in the winter time and he is in town during the summer. He denies any smoking or EtOH abuse. ALLERGIES: VINCRISTINE ADVANCED DIRECTIVES: The patient is a FULL CODE. PHYSICAL EXAMINATION The patient is alert and oriented, in no acute distress and his most recent vital signs reveal a blood pressure of 170/80 with a pulse of 53, respirations 18-20 and his maximum temperature is 97.7 degrees Fahrenheit with an oxygen saturation of 95% on room air. Head: Atraumatic. Neck: Neck is supple and no JVD appreciated. Lungs: Were clear bilaterally on auscultation without any wheezing or crackles. Heart: Reveals an irregular heart sound without gallops. The PMI is displaced. There is no rub. There is a systolic murmur grade 1-2/6 at the lower sternal border and at the apex with some radiation to the axilla. Abdomen: Soft and nontender. Bowel sounds active. Extremities: Reveal no pedal edema. Neurological examination: Reveals minimal left-sided weakness. Peripheral pulses, dorsalis pedis were +2 and equal. LABORATORY DATA CBC done today revealed a WBC of 5.9, hemoglobin 13.0, hematocrit 38.7, platelets 165,000. BMP done today revealed a sodium of 139, potassium 4.3, chloride 104, CO2 30, BUN 20, creatinine 1.40, GFR 51.9, fasting glucose 110 and calcium 8.6. Liver enzymes revealed a total bilirubin of 0.4, AST 17, ALT 12, alkaline phosphatase 89, total protein 5.9 and albumin 3.2. Serum TSH is 1.40. Serum troponin on admission 07/25/2018 was less than 0.02. Serum hemoglobin A1c earlier today was 6.2. Serum magnesium is 2.0. PT on admission was 21.2 with an INR of 1.8 and a PTT of 37.7. Today INR is 1.9 with a PT of 22.7. Echocardiogram on admission revealed atrial fibrillation with a ventricular rate of 59 beats per minute and nonspecific ST-T abnormalities. Head CT done yesterday on admission 07/25/[address] evidence suggestive of acute infarct. Chest x-ray done 07/25/2018 revealed no cardiopulmonary disease process. Brain MRA without contrast revealed no large vessel arterial occlusion. MRI of the brain on admission revealed a small acute infarct in the right villanueva radiata. There are also findings consistent with chronic small-vessel ischemic disease. Bilateral carotid Doppler on 07/25/2018 revealed mild to moderate amount of mixed atheromatous plaques without any significant stenosis. IMPRESSION Abnormal EKG, that revealed atrial fibrillation with a slow ventricular rate at time and the patient has a couple 2.0 to 2.5 pulses last night while sleeping. There is a concern that he might need a permanent pacemaker but I do not see any indication at this present time and we will continue to monitor him. He was nothing by mouth (npo) and he was restarted on cardiac diet. He probably has some underlying sick sinus syndrome because he is not on any blocking agent, but no indication at this present time for a permanent pacemaker. He is currently on Lovenox and warfarin and we shall continue to follow the recommendation given by neurology. Atrial fibrillation has been chronic and persistent with underlying sick sinus syndrome, but no clear indication at this present time for permanent pacemaker. He is not on any AV blocking agent. The plan is to stop the Lovenox when the INR is therapeutic as recommended by neurology. He is not on aspirin. Hypertension and also we should follow recommendations given by neurology in view of the acute CVA. Hyperlipidemia, on a statin. History of left nephrectomy. History of chronic lymphocytic leukemia, in remission. History of benign prostatic hypertrophy (BPH). It was a pleasure to participate in the care of MR Sj Victoria for his underlying cardiac condition. Will continue to monitor him along with you while in the hospital. Tomorrow, he will be seen by Dr. Gutierrez.
--- NOTE | 2018-07-26 15:22 | CR ---
DATE OF CONSULTATION: 07/26/2018 CONSULTATION REPORT FOR: Dr. Fransisco Johansen REASON FOR CONSULTATION: New acute right villanueva radiata stroke with left-sided hemiparesis. Sj Victoria is an 78-year-old male with past medical history significant for atrial fibrillation on Coumadin presenting to [facility] with left leg and arm weakness. The patient states he noticed these symptoms occur after he was completing his lawn mowing. He thought his leg was fatigued from the lawn mowing. He did not think that he could be having stroke. The patient recently returned back from [place] and he had changed his overall diet. His international normalized ratio (INR) was noted to be 1.8 on admission, subtherapeutic and likely the cause of the patient's embolic stroke. MRI of the brain did reveal a small acute infarct of the right villanueva radiata. The patient was noted to have moderate carotid atherosclerosis disease, although stenosis was less than 50% bilaterally. There was no intracranial stenosis noted. The patient has been placed on Lovenox by his admitting provider and then started on aspirin. The patient's stroke is likely due to subtherapeutic INR so it is recommended to discontinue the aspirin as the patient will remain on therapeutic doses of Lovenox. At the present time, the patient complains that his left hand is clumsy and weak and his left leg is still probably weak, although he states he has not tried to walk on it during the day. REVIEW OF SYSTEMS: 14-point review of systems obtained and is negative except as per history of present illness (HPI). The patient denies any dysarthria, dysphasia or any right-sided symptoms at this time. HOME MEDICATIONS: - amlodipine 5 mg by mouth daily - gabapentin 600 mg by mouth twice a day - Prevacid 30 mg by mouth twice a day - multivitamin by mouth daily - oxybutynin 5 mg by mouth daily - simvastatin 10 mg by mouth at bedtime - tolterodine tartrate 4 mg extended release 24-hour by mouth daily - Coumadin 2.5 mg by mouth three days a week - Coumadin 5 mg by mouth four days a week - acetaminophen as needed - albuterol as needed - nitroglycerin 0.4 mg sublingual as needed - polyethylene glycol - MiraLax 17 grams as needed SOCIAL HISTORY: The patient denies use of any tobacco, alcohol or illicit drugs. PAST MEDICAL HISTORY: 1. Hypertension. 2. Atrial fibrillation. 3. Non-Hodgkin's lymphoma. PAST SURGICAL HISTORY: 1. Left nephrectomy. 2. Right knee replacement. 3. Hemorrhoidectomy. ALLERGIES: VINCRISTINE. PHYSICAL EXAMINATION: Blood pressure is 142/69, pulse rate 57, respiratory rate is 18, temperature is 97.3 degrees Fahrenheit, oxygenation is 95% on room air. International normalized ratio (INR) is 1.8. The patient is awake, alert, oriented to person, place and time. Speech, language, comprehension and repetition are intact without any aphasia or dysarthria. Pupils are 2.5 mm, round and reactive to light. Extraocular movements are intact in all directions without nystagmus. Sensation V1, V2, V3 is intact to light touch. No facial asymmetry to activation. Palate elevates symmetrically. Tongue is midline. No weakness of sternocleidomastoids bilaterally. Hearing is subjectively equal to finger rub. There is a pronator drift of the left upper extremity. Strength testing reveals 4+ strength in the left deltoid, 5- strength in the left biceps, triceps and handgrip, iliopsoas bilaterally are 4+, quadriceps on the right is 5 and on the left is a 4, tibialis anterior are a 5- on the left and 5 on the right. Sensory is intact to light touch in all four extremities. Coordination reveals subtle ataxia, [id number] of the left upper extremity, otherwise right side is normal. Gait deferred. ASSESSMENT: An 78-year-old male with small acute infarction of the right villanueva radiata in the setting of subtherapeutic international normalized ratio (INR) of 1.8 while on Coumadin. This is likely the cause of the patient's stroke. PLAN: Adjust Coumadin dosing to reach goal international normalized ratio (INR) between 2 and 3. Can consider alternative therapies for anticoagulation as per cardiology with Eliquis, Xarelto, or Pradaxa. Continue with simvastatin. Continue telemetry monitoring, physical therapy (PT)/occupational therapy (OT) evaluation. The patient to followup in the [facility] 6-8 weeks after discharge. History obtained from both the patient and the patient's son.
--- NOTE | 2018-07-26 16:18 | IPNPDOC ---
Text Note Date of Service The patient was seen on 07/26/18. NOTE SUBJECTIVE: Mr. Victoria is seen on rounds this morning, he is doing well and is sitting in his bedside chair speaking to his in the room. He states that his left sided weakness is improving. He denies any CP, SOB or fevers/chills currently. ROS: 12 point ROS was reviewed and negative except for what is positive in subjective portion of note OBJECTIVE PHYSICAL EXAMINATION: VITAL SIGNS: Please see below. GENERAL: Pleasant 78 y/o male appearing his stated age,sitting in bedside chair, in NAD, Awake alert oriented speaking in complete sentences HEENT: Moist mucous membranes no JVD appreciated, EOMI h CARDIOVASCULAR: S1 S2 regular, no other heart sounds appreciated RESPIRATORY: Clear to auscultation bilaterally without wheezing or rales/crackles ABDOMINAL: nabsx4, no hepatosplenomegaly, no distension, no rebound ridgity or guarding, abdomen is soft and nontender EXTREMITIES: No clubbing cyanosis or edema NEUROLOGICAL: Spontaneously moves all 4 extremities, no focal deficits appreciated, CN2-12 intact, sensation, strength and reflexes preserved for b/l upper and lower extremities. PSYCHOLOGICAL: Appropriate affect LABORATORY DATA, MICROBIOLOGY: Please see below. 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 PROBLEMS: 1. Left foot weakness secondary to right villanueva radiata acute infarct -Neurology and Cardiology have both seen patient, appreciate their help. The patient will continue on Coumadin and Lovenox until INR is therapeutic. We could consider beginning instead a NOAC, can discuss this with patient in AM. Continue on telemetry. He will need to continue to work with PT/OT tomorrow. He is to follow up with neurology office outpatient within 6-8 weeks after d.c. C/w statin therapy. ECHO on this admission showed normal EF, with aortic valve sclerosis with mild AR but no and very dilated left atrium with moderate MR and mild TR with mild pulmonary HTN and dialted r. atrium. and trace pericardial effusion. Doppler exam carotids showed mild to moderate amounts of mixed atheromatous plaquing noted along tortuous b/l internal carotid arteries below 50% range. We will check INR tonight and in AM, he did just have acute infarct and we want to ensure we are not over anticoagulating him. The patients weakness clinically is improving. 2. HTN -Will increase his Norvasc to 10 mg in AM. Can give 10 mg hydralazine now to keep SBP in 140-180 range. In light of renal function will schedule low dose lisinopril at night holding parameters for sbp <140. Goal is to keep BP in 140- 180. 3. Chronic A. fib with bradycardia - C/w coumidin and lovenox until INR is therapeutic, re-cehck INR this evening and in AM -He does not need pacemaker implantation at this time, appreciate cardiology input Disposition: Depending on how he works with physical therapy in morning and how his INR trends, he likely will require some form of acute rehab after. VS,Fishbone, I+O VS, Fishbone, I+O Laboratory Tests 07/26/18 02:24 Red Blood Count 3.88 L, Mean Corpuscular Volume 99.7 H, Mean Corpuscular Hem oglobin 33.5 H, Mean Corpuscular Hemoglobin Concent 33.6, Red Cell Distribution Width 12.5, Calcium Level 8.6 L, Aspartate Amino Transf (AST/SGOT) 17, Alanine Aminotransferase (ALT/SGPT) 12, Alkaline Phosphatase 89, Total Bilirubin 0.4, Total Protein 5.9 L, Albumin 3.2 Vital Signs Date Time Temp Pulse Resp B/P (MAP) Pulse Ox O2 Delivery O2 Flow Rate FiO2 07/26/18 12:00 98.9 55 18 170/79 (109) 93 07/25/18 08:27 Room Air I&O- Last 24 Hours up to 6 AM 07/26/18 06:00 Intake Total 1740 ml Output Total 1975 ml Balance -235 ml GME ATTESTATION GME ATTESTATION My faculty preceptor for this patient encounter was physically present during the encounter and was fully available. All aspects of the patient interview, examination, medical decision making process, and medical care plan development were reviewed and approved by the faculty preceptor. The faculty preceptor is aware and concurs with the plan as stated in the body of this note and will attest to such by his/her cosignature. ATTENDING NOTE I saw and evaluated the patient. I agree with the findings and plan of care as documented in the resident's note JOHNNY PAVON DO July 26, 2018 16:18 VALARIE BRAVO MD July 30, 2018 15:00
[2018-07-26] MEDS ORDERED: hydrALAZINE INJ 20 MG/ML VIAL IV STA (16:27)
[2018-07-26] MEDS: WARFARIN SOD 5 MG TAB PO SCH (16:35)
[2018-07-26 17:48] LABS: INR 1.87; PROTHROMBIN TIME 21.9 SECONDS (12.1-14.4)
--- NOTE | 2018-07-26 18:17 | REP ---
Clinical: Acute left-sided weakness. Comparison: 07/25/2018 . Findings: Age-related atrophy and microvascular ischemic changes are appreciated. The ventricles and sulci are symmetric. Estrada-white differentiation is maintained. The small acute infarction within the right villanueva radiata identified by recent MRI is barely visible on CT and there is no significant associated mass effect/edema or hemorrhage. There is no evidence for further acute intracranial pathology or infarction. No extra-axial fluid collection. Calvarium is intact. Paranasal sinuses and mastoid air cells are clear. Impression: 1. The small acute infarction identified on MRI dated 07/25/2018 within the right villanueva radiata is not identifiable by CT. 2. No new acute process appreciated. Electronically Signed by Varun Navarro MD 07/26/2018 06:09 P
[2018-07-26] MEDS: SIMVASTATIN 10 MG TAB PO SCH (20:26)
[2018-07-26] MEDS ORDERED: LISINOPRIL *2.5 MG* TAB PO SCH (21:00)
[2018-07-27 04:00] VITALS: BP 177/77
[2018-07-27 05:52] LABS: HEMATOCRIT 42.1 % (42.0-52.0); HEMOGLOBIN 14.1 g/dl (13.5-17.5); MEAN CORPUSCULAR HEMOGLOBIN 32.6 pg (27.0-33.0); MEAN CORPUSCULAR HGB CONC 33.5 g/dl (32.0-36.5); MEAN CORPUSCULAR VOLUME 97.2 fl (80.0-96.0); PLATELET COUNT, AUTOMATED 190 10^3/uL (150-450); RED BLOOD COUNT 4.33 10^6/uL (4.30-6.10); WHITE BLOOD COUNT 6.9 10^3/uL (4.0-10.0)
[2018-07-27 06:02] LABS: INR 1.97; PROTHROMBIN TIME 22.8 SECONDS (12.1-14.4)
[2018-07-27 06:06] LABS: CALCIUM LEVEL 8.9 MG/DL (8.8-10.2); CREATININE FOR GFR 1.32 MG/DL (0.70-1.30); GLOMERULAR FILTRATION RATE 55.6 (>35); POTASSIUM SERUM 4.7 MEQ/L (3.5-5.1)
[2018-07-27 08:00] VITALS: BP 177/80
--- NOTE | 2018-07-27 08:19 | IPN ---
DATE: 07/27/2018 Mr. Victoria has been doing relatively well. He tells me that he his left sided weakness is slightly improved but not very much. He still appreciates weakness of mostly left upper extremity and has not done walking on his own. He denies any chest pain, palpitation or dizziness. Vital signs: Blood pressure 177/77 this morning, heart rate has been mostly 50s to 70s during the day, but he can get into high 30s during the night. I reviewed the extensive telemetry tracings and there have been no long pauses. His JVP is not up. Lungs are clear. Good air movement. Heart exam irregularly irregular rhythm without gallop, rub or murmur. Abdomen is soft without tenderness. Extremities are free of edema. Good peripheral pulses. Neurologically, there is very apparent left-sided weakness, seems to be a little worse in the upper extremity, but I did not do formal testing of his gait. Speech is intact. LABORATORIES: Basic metabolic panel sodium 138, potassium 4.7, BUN 20, creatinine 1.3, glucose 118. CBC hemoglobin 14.1, hematocrit 42, platelet count 190,000. INR 1.97 ASSESSMENT/PLAN: Mr. Victoria is an 78-year-old man who has chronic atrial fibrillation and presented with ischemic stroke causing left-sided weakness. It was fairly small based on neuroimaging and per the patient, he is slowly improving. On presentation, he had subtherapeutic INR at 1.8. I have to say that it is only slightly subtherapeutic so it is difficult to blame this for stroke, even though it is certainly conceivable. He seems to be improving. Cardiology was originally called because there was nocturnal bradycardia, but I reviewed the telemetry tracing and I do not believe that there is any need for a pacemaker. As far as the management of stroke is concerned, it is left with primary team and neurology. My recommendation would be to stop the patient from Coumadin and transitioning to Eliquis, which is superior to Coumadin for prevention of cerebrovascular accident (CVA). I think we probably should take at least a few more days before we make this transition. As to the best of my understanding, the use of these agents has not been tested in setting of acute cerebrovascular accident. I do not have any additional recommendations.
[2018-07-27] MEDS: GABAPENTIN 300 MG CAP PO SCH ×2 (09:11→20:57)
[2018-07-27] MEDS: ENOXAPARIN 100MG/1ML SYRINGE (J1650) SC SCH ×2 (09:11→20:57)
[2018-07-27] MEDS: amLODIPine 10 MG TAB PO SCH (09:11)
[2018-07-27] MEDS: TOLTERODINE TARTRATE 2 MG LA CAP (DETROL LA) PO SCH (09:11)
[2018-07-27] MEDS: oxyBUTYnin *DITROPAN XL* 5 MG TABCR PO SCH (09:11)
[2018-07-27 12:00] VITALS: BP 146/81
[2018-07-27] MEDS ORDERED: CALCIUM CARBONATE 500 MG CHEW U/D PO ONE ×2 (12:00→22:30)
--- NOTE | 2018-07-27 13:14 | IPNPDOC ---
Text Note Date of Service The patient was seen on 07/27/18. VS,Fishbone, I+O VS, Fishbone, I+O Laboratory Tests 07/27/18 05:26 Red Blood Count 4.33, Mean Corpuscular Volume 97.2 H, Mean Corpuscular Hemoglobin 32.6, Mean Corpuscular Hemoglobin Concent 33.5, Red Cell Distribution Width 12.4, Calcium Level 8.9 Vital Signs Date Time Temp Pulse Resp B/P (MAP) Pulse Ox O2 Delivery O2 Flow Rate FiO2 07/27/18 12:00 97.2 63 18 146/81 (102) 97 07/25/18 08:27 Room Air I&O- Last 24 Hours up to 6 AM 07/27/18 06:00 Intake Total 960 ml Output Total 950 ml Balance 10 ml GME ATTESTATION GME ATTESTATION My faculty preceptor for this patient encounter was physically present during the encounter and was fully available. All aspects of the patient interview, examination, medical decision making process, and medical care plan development were reviewed and approved by the faculty preceptor. The faculty preceptor is aware and concurs with the plan as stated in the body of this note and will attest to such by his/her cosignature. ATTENDING NOTE SUBJECTIVE: Mr. Victoria is seen on rounds this morning, he is doing well and is sitting in his bedside chair participating in PT exercises. His left sided weakness is improving. He denies any CP, SOB or fevers/chills currently. ROS: 12 point ROS was reviewed and negative except for what is positive in subjective portion of note OBJECTIVE PHYSICAL EXAMINATION: VITAL SIGNS: Please see below. GENERAL: Pleasant 78 y/o male appearing his stated age,sitting in bedside chair engaging in PT, in NAD, awake alert oriented speaking in complete sentences HEENT: Moist mucous membranes no JVD appreciated, EOMI h CARDIOVASCULAR: S1 S2 regular, no other heart sounds appreciated RESPIRATORY: Clear to auscultation bilaterally without wheezing or r ales/crackles ABDOMINAL: nabsx4, no hepatosplenomegaly, no distension, no rebound ridgity or guarding, abdomen is soft and nontender EXTREMITIES: No clubbing cyanosis or edema NEUROLOGICAL: Spontaneously moves all 4 extremities, no focal deficits appreciated, CN2-12 intact, sensation, strength and reflexes preserved for b/l upper and lower extremities except some weakness on left LE improving from yesterday PSYCHOLOGICAL: Appropriate affect LABORATORY DATA, MICROBIOLOGY: Please see below. 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 PROBLEMS: 1. Left foot weakness secondary to right villanueva radiata acute infarct -Neurology and Cardiology have both seen patient, appreciate their help. The patient will continue on Coumadin and Lovenox until INR is therapeutic. INR 1.97 this morning. We could consider beginning instead a NOAC, but patient does have one kidney, we will discuss with cardiology for their recommendation. Continue on telemetry. He will need to continue to work with PT/OT who have said at least one more day of physical therapy, they will likely recommend home with services. He is to follow up with neurology office outpatient within 6-8 weeks after d.c. C/w statin therapy. ECHO on this admission showed normal EF, with aortic valve sclerosis with mild AR but no and very dilated left atrium with moderate MR and mild TR with mild pulmonary HTN and dialted r. atrium. and trace pericardial effusion. Doppler exam carotids showed mild to moderate amounts of mixed atheromatous plaquing noted along tortuous b/l internal carotid arteries below 50% range. He states that he did not have any episodes overnight of oral numbness or LLE weakness as he did yesterday. 2. HTN -C/w Norvasc to 10 mg in AM. Will allow permissive HTN for over 72 hours past stroke. The patients BP was controlled yesterday and systolic brought to 136 however the patient began having numbness around mouth and some left foot weakness that was exacerbated, stat CT head was without focal findings for new or advancing stroke. Neuro exam was essentially unchanged as well, he did demonstrate some LLE foot weakness but CN 2-12 was intact at event and upper b/l and right LE strength, sensation and reflexes were intact. Did reach out to Dr. Bear in Neurology, likely dropping his BP hypoperfused the section of stroke and he manifested symptoms, therefore we had allowed him to maintain elevated BP's past 48 hour gustavo after stroke onset. Can consider gently lowering later this afternoon/night and tomorrow morning. 3. Chronic A. fib with bradycardia - C/w coumidin and lovenox until INR is therapeutic, INR this morning is only 1.97 -He does not need pacemaker implantation at this time, appreciate cardiology input Disposition: Depending on how he works with physical therapy, monitoring his INR as well. He may need some form of acute rehab after d/c or home with services. I saw and evaluated the patient. I agree with the findings and plan of care as documented in the resident's note JOHNNY PAVON DO July 27, 2018 13:14 VALARIE BRAVO MD July 30, 2018 15:03
[2018-07-27 16:00] VITALS: BP 154/64
[2018-07-27] MEDS: WARFARIN SOD 5 MG TAB PO SCH (17:23)
[2018-07-27 20:00] VITALS: BP 152/65
[2018-07-27] MEDS: SIMVASTATIN 10 MG TAB PO SCH (20:57)
[2018-07-27 23:59] VITALS: BP 177/80
[2018-07-28 04:00] VITALS: BP 170/74
[2018-07-28 06:28] LABS: HEMATOCRIT 40.3 % (42.0-52.0); HEMOGLOBIN 13.5 g/dl (13.5-17.5); MEAN CORPUSCULAR HEMOGLOBIN 33.1 pg (27.0-33.0); MEAN CORPUSCULAR HGB CONC 33.5 g/dl (32.0-36.5); MEAN CORPUSCULAR VOLUME 98.8 fl (80.0-96.0); PLATELET COUNT, AUTOMATED 181 10^3/uL (150-450); RED BLOOD COUNT 4.08 10^6/uL (4.30-6.10); WHITE BLOOD COUNT 6.2 10^3/uL (4.0-10.0)
[2018-07-28 06:43] LABS: INR 2.11; PROTHROMBIN TIME 24.1 SECONDS (12.1-14.4)
[2018-07-28 06:47] LABS: CALCIUM LEVEL 9.3 MG/DL (8.8-10.2); CREATININE FOR GFR 1.25 MG/DL (0.70-1.30); GLOMERULAR FILTRATION RATE 59.2 (>35); POTASSIUM SERUM 4.3 MEQ/L (3.5-5.1)
[2018-07-28 08:00] VITALS: BP 186/80
--- NOTE | 2018-07-28 08:23 | IPN ---
DATE: 07/28/2018 Mr. Victoria has done well yesterday. He had uneventful day. He did a fair amount of walking with the walker yesterday and believes that his strength is improving. Denies any cardiac symptoms. His telemetry monitoring still reveals episodes of bradycardia at night. He sometimes dips to a heart rate around 40, but I did not appreciate any long pauses and during the day his heart rate is in normal range. Also, his blood pressure is higher than it was yesterday, but the amlodipine was just increased and it is a single measurement so at this point I would not necessarily intervene. VITAL SIGNS: Blood pressure 170/74, heart rate mostly in the 70s during the day. He is afebrile. Saturation 97%. Weight 95.9 kg. He is alert, oriented and appropriate. His jugular venous pressure is not up. Heart reveals irregular rhythm. No gallop or rub is appreciated. Lungs are clear with good air movement. There is no peripheral edema. Neurologically, there is still persistent left sided weakness. From my first impression, there is some improvement since yesterday. LABORATORIES: Basic metabolic panel is normal. Potassium was 4.3, BUN 23, creatinine 1.25 and glucose 110. CBC showed hemoglobin 13.5, hematocrit 40.3 and platelet count 181,000. INR is 2.1. ASSESSMENT AND PLAN: Mr. Victoria is an 78-year-old man with chronic atrial fibrillation who presented with left sided hemiparesis and was found to have ischemic stroke in right villanueva radiata. He was slightly subtherapeutic on his INR that was 1.8. At this point, he is undergoing rehabilitation and is slowly improving. I am somewhat optimistic that there will be full or nearly full recovery. From perspective of atrial fibrillation, I think it is appropriate to switch him to one of the normal anticoagulants due to better protection from ischemic events, but I am not aware of any data that will use these agents acutely after a CVA and consequently I would keep him on Coumadin for at least another 2 or 3 weeks, at which point we can transition him. My preference would be Eliquis. I talked to the patient about this issue and we will tentatively do it on an outpatient basis. The other issue was rate control of atrial fibrillation. He was at times bradycardic, but it is nocturnal phenomenon only and his heart rate is normal during the day so at this point I do not see any indication that he would need a pacemaker.
[2018-07-28] MEDS: ENOXAPARIN 100MG/1ML SYRINGE (J1650) SC SCH (09:00)
[2018-07-28] MEDS: amLODIPine 10 MG TAB PO SCH (09:09)
[2018-07-28] MEDS: oxyBUTYnin *DITROPAN XL* 5 MG TABCR PO SCH (09:09)
[2018-07-28] MEDS: GABAPENTIN 300 MG CAP PO SCH ×2 (09:09→21:06)
[2018-07-28] MEDS ORDERED: SLF 3 ML SYR IV PRN (11:15)
[2018-07-28 12:00] VITALS: BP 134/70
[2018-07-28] MEDS: TOLTERODINE TARTRATE 2 MG LA CAP (DETROL LA) PO SCH (12:59)
[2018-07-28] MEDS: LISINOPRIL *2.5 MG* TAB PO SCH (13:00)
[2018-07-28] MEDS: SLF 3 ML SYR IV SCH ×2 (14:00→21:06)
--- NOTE | 2018-07-28 14:13 | IPNPDOC ---
Text Note Date of Service The patient was seen on 07/28/18. NOTE Mr. Victoria is seen at bedside rounds this morning, he is sitting upright in bedside chair eating his breakfast and feels well. He has no complaints of chest pain, shortness of breath, cough, fever, nausea vomiting. SUBJECTIVE: He feels well today and has no complaints. He otherwise denies chest pain, shortness breath, nausea, vomiting, fevers, chills OBJECTIVE PHYSICAL EXAMINATION: VITAL SIGNS: Please see below. GENERAL: This is a very pleasant 78-year-old male who is sitting in bedside chair eating his breakfast, he is in no acute distress, he is awake alert and oriented and speaking in full sentences. HEENT: EOMI, moist mucous membranes, no JVD appreciated CARDIOVASCULAR: Normal S1 and S2, no murmurs, rubs or gallops appreciated. RESPIRATORY: Clear to auscultation bilaterally, no wheezing, rales, rhonchi appreciated. ABDOMINAL: Normoactive bowel sounds 4, no hepatosplenomegaly no masses appreciated, no pain to palpation, no rebound rigidity or guarding, no disten tion EXTREMITIES: No clubbing, cyanosis or edema appreciated NEUROLOGICAL: Cranial nerves II through XII grossly intact, upper and lower extremities bilateral preserved strength, sensation and reflex. 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 PROBLEMS: 1. Left foot weakness secondary to right villanueva radiata acute infarct -Neurology and Cardiology have both seen patient, appreciate their help. The patient will continue on Coumadin, his INR was 2.11 today. We will discontinue the Lovenox right now. He will continue on Coumadin. Cardiology has recommended that he may be transitioned to Eliquis on outpatient basis on follow-up with cardiology. We agree with these recommendations. Continue on telemetry. He will need to continue to work with PT/OT because he has not cleared yet. They will likely recommend home with services. He is to follow up with neurology office outpatient within 6-8 weeks after d.c. C/w statin therapy. ECHO on this admission showed normal EF, with aortic valve sclerosis with mild AR but no and very dilated left atrium with moderate MR and mild TR with mild pulmonary HTN and dialted r. atrium. and trace pericardial effusion. Doppler exam carotids showed mild to moderate amounts of mixed atheromatous plaquing noted along tortuous b/l internal carotid arteries below 50% range. He states that he did not have any episodes overnight of oral numbness or LLE weakness as he did yesterday. 2. HTN -C/w Norvasc to 10 mg in AM. Will have allowed permissive HTN for over 72 hours past stroke. However we will add lisinopril 2.5 mg daily now. We will see how patient tolerates this. 3. Chronic A. fib with bradycardia - C/w coumidin, have d/c lovenox for INR of 2.11. INR is therapeutic, INR this morning is only 1.97 -He does not need pacemaker implantation at this time, appreciate cardiology input Disposition: Depending on how he works with physical therapy today he can be discharged, we are introducing new BP medication to help lower his BP slowly. He likely will need to go home with services. VS,Fishbone, I+O VS, Fishbone, I+O Laboratory Tests 07/28/18 06:01 Red Blood Count 4.08 L, Mean Corpuscular Volume 98.8 H, Mean Corpuscular Hemoglobin 33.1 H, Mean Corpuscular Hemoglobin Concent 33.5, Red Cell Distribution Width 12.5, Calcium Level 9.3 Vital Signs Date Time Temp Pulse Resp B/P (MAP) Pulse Ox O2 Delivery O2 Flow Rate FiO2 07/28/18 13:00 186/80 07/28/18 12:00 97.0 54 20 98 07/25/18 08:27 Room Air I&O- Last 24 Hours up to 6 AM 07/28/18 06:00 Intake Total 1560 ml Output Total 450 ml Balance 1110 ml GME ATTESTATION GME ATTESTATION My faculty preceptor for this patient encounter was physically present during the encounter and was fully available. All aspects of the patient interview, examination, medical decision making process, and medical care plan development were reviewed and approved by the faculty preceptor. The faculty preceptor is aware and concurs with the plan as stated in the body of this note and will attest to such by his/her cosignature. ATTENDING NOTE I saw and evaluated the patient. I agree with the findings and plan of care as documented in the resident's note JOHNNY PAVON 29, 2019 14:13 VALARIE BRAVO MD Jul 31, 2018 12:22
[2018-07-28 16:00] VITALS: BP 174/79
[2018-07-28] MEDS: WARFARIN SOD 5 MG TAB PO SCH (18:15)
[2018-07-28] MEDS ORDERED: CALCIUM CARBONATE 500 MG CHEW U/D PO ONE (19:00)
[2018-07-28 20:00] VITALS: BP 127/65
[2018-07-28] MEDS: SIMVASTATIN 10 MG TAB PO SCH (21:06)
[2018-07-28 23:59] VITALS: BP 137/70
[2018-07-29 04:00] VITALS: BP 138/62
[2018-07-29 05:40] LABS: HEMATOCRIT 38.6 % (42.0-52.0); HEMOGLOBIN 12.9 g/dl (13.5-17.5); MEAN CORPUSCULAR HEMOGLOBIN 32.3 pg (27.0-33.0); MEAN CORPUSCULAR HGB CONC 33.4 g/dl (32.0-36.5); MEAN CORPUSCULAR VOLUME 96.7 fl (80.0-96.0); PLATELET COUNT, AUTOMATED 179 10^3/uL (150-450); RED BLOOD COUNT 3.99 10^6/uL (4.30-6.10); WHITE BLOOD COUNT 6.8 10^3/uL (4.0-10.0)
[2018-07-29 05:49] LABS: INR 2.1
[2018-07-29 06:06] LABS: CREATININE FOR GFR 1.26 MG/DL (0.70-1.30); GLOMERULAR FILTRATION RATE 58.6 (>35); POTASSIUM SERUM 4.5 MEQ/L (3.5-5.1)
[2018-07-29] MEDS: SLF 3 ML SYR IV SCH (06:40)
--- NOTE | 2018-07-29 07:13 | IPN ---
DATE: 07/29/2018 Mr. Victoria is making progress with his rehabilitation. He tells me that his ambulation yesterday was better than the day before. He feels that he is getting ready to go home. On telemetry, he continues to be in atrial fibrillation and bradycardia at night, his heart rate is sometimes dipping into the low 40s, but no pauses were seen. He denies any dizziness or sensation of near syncope. Vital Signs: Blood pressure 138/62, heart rate 57, he is afebrile. Saturation 93% room air. Weight this morning was documented 96 kg, which is slightly up since admission. He is alert and oriented and appropriate. I do not appreciate any speech impediment. His jugular venous pulse (JVP) is not elevated. Lungs are clear. Heart exam reveals irregularly irregular rhythm without gallop, rub or murmur. Abdomen is soft and nontender. Extremities are free of edema. He still has some residual left-sided weakness, but it seems to be improving every day. Laboratory-chavez, CBC: WBC count 12.9, hematocrit 38.6. Basic metabolic panel is essentially normal, but for marginal hyponatremia at 134. INR is 2.1 ASSESSMENT: Mr. Victoria is an 78-year-old man who has chronic atrial fibrillation and presented with ischemic stroke. His INR was mildly subtherapeutic on admission at 1.8. He had left-sided hemiparesis that is improving. From my perspective, I do not have much else to add. I would continue his Coumadin for an additional approximately 2 or 3 weeks at which point I think we should switch him to Eliquis. We can arrange for this on an outpatient basis. Atrial fibrillation is rate controlled even without rate controlling medications. He did have episodes of bradycardia, but it was never symptomatic and not severe enough to warrant pacemaker placement. As far as the blood pressure is concerned, he was somewhat hypertensive on admission. It has improved since. His calcium channel deedee was increased and ANH inhibitor was added. I believe he can be discharged on current medications. I tentatively plan to see him in followup in approximately 2 weeks. If you do have any new concerns or questions, please contact me again.
[2018-07-29 08:00] VITALS: BP 145/67
[2018-07-29 09:37] VITALS: BP 145/67
[2018-07-29] MEDS: LISINOPRIL *2.5 MG* TAB PO SCH (09:37)
[2018-07-29] MEDS: oxyBUTYnin *DITROPAN XL* 5 MG TABCR PO SCH (09:37)
[2018-07-29] MEDS: amLODIPine 10 MG TAB PO SCH (09:37)
[2018-07-29] MEDS: GABAPENTIN 300 MG CAP PO SCH (09:37)
[2018-07-29] MEDS: TOLTERODINE TARTRATE 2 MG LA CAP (DETROL LA) PO SCH (09:38)
[2018-07-29 12:00] VITALS: BP 129/61
[2018-07-29] MEDS ORDERED: AMLO10TA5 PO (13:57)
[2018-07-29] MEDS ORDERED: COUM1TAB17 PO (13:57)
[2018-07-29] MEDS ORDERED: LISI-1046 PO (13:57)
--- NOTE | 2018-07-29 16:47 | DS.PDOC ---
Discharge Summary General Date of Admission July 25, 2018 at 07:46 Date of Discharge 07.29.18 Discharge Summary DISCHARGE DIAGNOSIS: CVA of the right villanueva radiata SECONDARY DIAGNOSIS: 1. HTN 2. Chronic A. fib with bradycardia 3. GERD PROCEDURES PERFORMED DURING STAY: [facility] HOSPITAL COURSE: During the course of the patients hospital stay, he was seen by both neurology and cardiology. He was started on Coumidin therapy and bridged with lovenox until his INR was therapeutic, lovenox was then d.c. He was evaluated for episodes of asymptomatic bradycardia by cardiology and they did not feel he needed a pacemaker for this. He was rate controlled during his stay even without medication. He worked with PT for physical conditioning and was discharged home with outpatient PT. He has an order to have his INR checked in 3 days and results sent to his PCP Dr Ventura., he was provided print out on diet he should maintain while on Coumidin. According to cardiology, he may be switched to NOAC within 2-3 weeks of Coumidin therapy. He does have one kidney, so this will need to be a consideration in that decision. Of note, he was subtherapeutic on his outpatient coumidin therapy on presentation and it was felt this could have contributed to his stroke. DISCHARGE MEDICATIONS: Please see below. ALLERGIES: Please see below. SUBJECTIVE: Mr. Victoria feels well today and is anxious to go home. He has no complaints today on exam. Otherwise patient denies chest pain, shortness, breath, nausea, vomiting, fevers, chills OBJECTIVE: PHYSICAL EXAMINATION: VITAL SIGNS: Please see below. GENERAL: Pleasant 78 yo male sitting up in bed awake alert oriented speaking in complete sentences no acute distress HEENT: moist mucus membranes, no JVD, EOMI CARDIOVASCULAR: normal s1 and s2., no murmurs, rubs or gallops appreciated RESPIRATORY: cta b/l, no wheezing, rales or rhonchi appreciated ABDOMINAL: nabsx4, non tender to palpation, no distension, no rebound ridigyt or guarding, no hepatosplenomegaly or masses appreciated EXTREMITIES: No clubbing, cyanosis, edema NEUROLOGICAL: CN 2-12 intact, b/l upper and lower extremity sensation, strength and reflexes intact PSYCHOLOGICAL: affect appropriate LABORATORY DATA, MICROBIOLOGY: Please see below. IMAGING STUDIES: Head CT 07.25.18 IMPRESSION: No CT changes to suggest acute infarct at this time. CXR 07.25.18 Impression: No acute cardiopulmonary process appreciated. Brain MRA 07.25.18 IMPRESSION: 1. No large vessel arterial occlusion. 2. MR Head was not submitted for evaluation. Brain MRI 07.25.18 IMPRESSION: 1. Small acute infarct in the right villanueva radiata. 2. Mild T2-hyperintense changes in the deep white matter which are nonspecific but suspicious for chronic small vessel ischemic disease. Carotid artery duplex 07.25.18 Impression: 1. Mild to moderate amounts of mixed atheromatous plaquing noted along with tortuous bilateral internal carotid arteries. 2. Based on set standards narrowing falls within the less than 50% range. Head CT 07.26.18 Impression: 1. The small acute infarction identified on MRI dated 07/25/2018 within the right villanueva radiata is not identifiable by CT. 2. No new acute process appreciated. ECHOCARDIOGRAM: IMPRESSION: 1. Normal global left ventricular systolic function with mild concentric left ventricular hypertrophy. Assessment of the left ventricular diastolic function was limited in view of the underlying atrial fibrillation. 2. Aortic valve sclerosis with mild aortic regurgitation but no aortic stenosis. 3. Mitral annulus calcification with severely dilated left atrium and moderate mitral regurgitation. 4. Mild tricuspid regurgitation with mild pulmonary hypertension. The right atrium was also dilated. 5. Trace pericardial effusion, no evidence of cardiac tamponade ASSESSMENT AND PLAN: This is a 78 year old male who was found to have acute CVA of right villanueva radiata. PROBLEMS: 1.Right villanueva radiata acute infarct 2. Chronic A. fib with bradycardia 3. GERD DISPOSITION: stable DISCHARGE CONDITION: improved and stable PROGNOSIS: favorable FOLLOW UP: Please follow up with cardiology, neurology and PCP within 5-7 days of discharge ACTIVITY: As prior to admission DIET: As prior to admission TIME SPENT ON DISCHARGE: 50 minutes Vital Signs/I&Os Vital Signs Date Time Temp Pulse Resp B/P (MAP) Pulse Ox O2 Delivery O2 Flow Rate FiO2 07/29/18 12:00 97.1 57 18 129/61 (83) 96 07/25/18 08:27 Room Air I&O- Last 24 Hours up to 6 AM 07/29/18 06:00 Intake Total 1460 ml Output Total 0 ml Balance 1460 ml Laboratory Data Labs 24H Laboratory Tests 2 07/29/18 05:28: Nucleated Red Blood Cells % (auto) 0.0, Prothrombin Time 24.0H, Prothromb Time International Ratio 2.10, Anion Gap 5L, Glomerular Filtration Rate 58.6, Blood Urea Nitrogen 23H, Creatinine 1.26, Sodium Level 134L, Potassium Level 4.5, Chloride Level 100, Carbon Dioxide Level 29, Calcium Level 9.0 CBC/BMP Laboratory Tests 07/29/18 05:28 Red Blood Count 3.99 L, Mean Corpuscular Volume 96.7 H, Mean Corpuscular Hemoglobin 32.3, Mean Corpuscular Hemoglobin Concent 33.4, Red Cell Distribution Width 12.5, Calcium Level 9.0 Discharge Medications Scheduled Amlodipine Besylate (Amlodipine Besylate) 10 Mg Tablet, 10 MG PO DAILY Gabapentin (Neurontin) 300 Mg Cap, 600 MG PO BID, (Reported) Lisinopril (Lisinopril) 2.5 Mg Tablet, 2.5 MG PO DAILY Multivitamin (Multivitamins) 1 Each Capsule, 1 CAP PO DAILY, (Reported) Oxybutynin Chloride (Oxybutynin Chloride ER) 5 Mg Tab, 5 MG PO DAILY, (Reported) Simvastatin (Simvastatin) 10 Mg Tab, 10 MG PO QHS, (Reported) Tolterodine Tartrate (Tolterodine Tartrate ER) 4 Mg Cap.er.24h, 4 MG PO DAILY, (Reported) Warfarin Sodium (Coumadin) 5 Mg Tablet, 5 MG PO DAILY@1700 Scheduled PRN Acetaminophen (Acetaminophen) 500 Mg Tab, 1,000 MG PO Q8H PRN for PAIN, (Reported) Albuterol Sulfate (Proair Hfa) 8.5 Gm Hfa.aer.ad, 2 PUFF INH Q4H PRN for SHORTNESS OF BREATH, (Reported) Nitroglycerin (Nitrostat) 0.4 Mg Tab.subl, 0.4 MG SL NITRO PRN for CHEST PAIN, (Reported) Polyethylene Glycol 3350 (Miralax) 119 Gm Powder, 17 GM PO DAILY PRN for CONSTIPATION, (Reported) Allergies Coded Allergies: vincristine (Verified Allergy, Unknown, 07/25/18) neuropathy GME ATTESTATION GME ATTESTATION My faculty preceptor for this patient encounter was physically present during the encounter and was fully available. All aspects of the patient interview, examination, medical decision making process, and medical care plan development were reviewed and approved by the faculty preceptor. The faculty preceptor is aware and concurs with the plan as stated in the body of this note and will atte st to such by his/her cosignature. ATTENDING NOTE I saw and evaluated the patient. I agree with the findings and plan of care as documented in the resident's note. I spent 45 minutes coordinating this patient's discharge. JOHNNY PAVON DO July 29, 2018 16:47 VALARIE BRAVO MD Jul 31, 2018 12:31
== END 2018-07-29 16:30 | disposition home or self-care (01) | DRG 65 ==
LOC: M ED 03:28 → M ED INP 07:46 → M PCU 14:31
PROVIDERS: ADMIT Internal Medicine; ATTEND Internal Medicine
DX: I63.9 Cerebral infarction, unspecified (principal); I69.354 Hemiplegia and hemiparesis following cerebral infarction affecting left non-dominant side; C85.90 Non-Hodgkin lymphoma, unspecified, unspecified site; I10 Essential (primary) hypertension; I48.2 Chronic atrial fibrillation; K21.9 Gastro-esophageal reflux disease without esophagitis; Z79.899 Other long term (current) drug therapy; Z88.8 Allergy status to other drugs, medicaments and biological substances; E78.5 Hyperlipidemia, unspecified; Z79.01 Long term (current) use of anticoagulants; Z96.651 Presence of right artificial knee joint; N40.0 Benign prostatic hyperplasia without lower urinary tract symptoms

== ENCOUNTER 2018-08-12 10:21 | Emergency (ER) | payer MEDICARE, BC ==
[~2018-08-12] VITALS: Ht 172.7 cm; Wt 95.0 kg
[~2018-08-12 10:21] MED LIST changes: +AMLO10TA5 PO; +AMLO25TA PO; +AMLO5TAB6 PO; +COMMENT; +COUM1TAB17 PO; +LANS15CA PO; +LISI-1046 PO; +MULTCAP PO; +NITR0.3S SL; +NITR4TASL SL; +PROAAER10 INH; +TOLT4CAP3 PO; +[UNRECOGNIZED DRUG - CODE] MC
[2018-08-12] MEDS ORDERED: LANS30CA93 (10:50)
[2018-08-12 11:05] LABS: BASO # 0.1 10^3/uL (0.0-0.2); BASO % 0.9 % (0.0-1.0); EOS # 0.3 10^3/uL (0.0-0.50); EOS % 4.3 % (0.0-3.0); HEMATOCRIT 39.9 % (42.0-52.0); HEMOGLOBIN 13.9 g/dl (13.5-17.5); LYMPH % 14.5 % (24.0-44.0); MEAN CORPUSCULAR HEMOGLOBIN 33.7 pg (27.0-33.0); MEAN CORPUSCULAR HGB CONC 34.8 g/dl (32.0-36.5); MEAN CORPUSCULAR VOLUME 96.8 fl (80.0-96.0); MONO # 0.8 10^3/uL (0.0-0.8); MONO % 11.5 % (0.0-5.0); NEUTROPHILS # 4.5 10^3/uL (1.8-7.7); NEUTROPHILS % 68.3 % (36.0-66.0); PLATELET COUNT, AUTOMATED 194 10^3/uL (150-450); RED BLOOD COUNT 4.12 10^6/uL (4.30-6.10); WHITE BLOOD COUNT 6.5 10^3/uL (4.0-10.0)
[2018-08-12 11:14] LABS: INR 2.05; PROTHROMBIN TIME 23.5 SECONDS (12.1-14.4)
[2018-08-12] MEDS ORDERED: ASPIRIN 81 MG CHEW TABLET PO ONE (11:15)
[2018-08-12 11:16] LABS: PARTIAL THROMBOPLASTIN TIME 40.2 SECONDS (25.4-37.6)
[2018-08-12 11:31] LABS: ALBUMIN 3.7 GM/DL (3.2-5.2); ALT/SGPT 23 U/L (12-78); BILIRUBIN,DIRECT 0.2 MG/DL (0.0-0.2); BILIRUBIN,TOTAL 0.5 MG/DL (0.2-1.0); BLOOD UREA NITROGEN 20 MG/DL (7-18); CALCIUM LEVEL 8.7 MG/DL (8.8-10.2); CARBON DIOXIDE LEVEL 28 MEQ/L (21-32); CHLORIDE LEVEL 97 MEQ/L (98-107); CK-MB VALUE MASS 1.3 NG/ML (<3.6); CPK CREATINE PHOSPHOKINASE 55 U/L (39-308); CREATININE FOR GFR 1.26 MG/DL (0.70-1.30); FREE T4 1.09 NG/DL (0.76-1.46); GLOMERULAR FILTRATION RATE 58.6 (>35); GLUCOSE, FASTING 103 MG/DL (70-100); LIPASE 71 U/L (73-393); MB/CK RELATIVE INDEX 2.36 (< OR =4); POTASSIUM SERUM 4.7 MEQ/L (3.5-5.1); SODIUM LEVEL 134 MEQ/L (136-145); TOTAL PROTEIN 6.8 GM/DL (6.4-8.2); TROPONIN I < 0.02 NG/ML (< 0.10)
--- NOTE | 2018-08-12 11:41 | REP ---
Chest x-ray: Two views. History: Chest pain. Comparison study: July 25. Findings: EKG monitoring electrodes overlie the chest. There is an Ycvvco-F-Rwkg catheter in place on the right unchanged. Mild to moderate cardiac enlargement is seen. Cardiothoracic ratio today measures 51.3%. Pulmonary vasculature is not increased. Pleural angles are sharp. The aorta is calcific and tortuous. Impression: Mild to moderate cardiomegaly. Nxtipd-P-Jqpf catheter in place. Otherwise no acute disease. Electronically Signed by Sanket Madrigal MD 08/12/2018 11:33 A
[2018-08-12] MEDS ORDERED: ISOVUE-370 76% 100ML VIAL (Q9967) As Ordered ONE (12:02)
--- NOTE | 2018-08-12 12:55 | REP ---
CT ABDOMEN/PELVIS WITH IV CONTRAST: TECHNIQUE: Axial contrast enhanced images from the lung bases to the pubic symphysis using 100 mL Isovue 370 intravenous contrast material with multiplanar reformations. The liver demonstrates a few scattered cysts which are unchanged since prior CT, 07/23/2016. The spleen, right adrenal, and pancreas are unremarkable. Patient has had a prior left nephrectomy. There is no mass in the left renal fossa. Right kidney demonstrates an exophytic cyst of the lower pole measuring 2 cm in diameter. There is no right hydronephrosis. There is no abdominal aortic aneurysm with mild scattered atherosclerotic calcification. There is no adenopathy. There is no free air or free fluid. There is no bowel wall thickening. No pelvic mass is seen. Urinary bladder appears unremarkable. There are degenerative changes of the spine. IMPRESSION: Status post left nephrectomy. Scattered cysts in the liver. Cyst lower pole right kidney. No acute abnormalities. Electronically Signed by Rai Estrada MD 08/12/2018 04:42 P
--- NOTE | 2018-08-12 12:56 | REP ---
CT ANGIOGRAM CHEST: TECHNIQUE: Axial contrast enhanced images from the thoracic inlet to the upper abdomen using 100 mL Isovue 370 intravenous contrast material with multiplanar reformations. Comparison CT chest 07/28/2009. There is no CT evidence of pulmonary embolism. There is no thoracic aortic dissection. There is dilatation of the ascending thoracic aorta with a maximum diameter of 5 cm. Heart is mild to moderately enlarged. There is a small amount of left sided pericardial fluid or thickening. There is no significant mediastinal, hilar, or chest wall lymphadenopathy. Scattered fibroatelectatic changes are seen bilaterally predominantly in the dependent portions of both lungs. There is no pleural effusion. There is degenerative change of the spine. IMPRESSION: No CT evidence of pulmonary embolism or aortic dissection. Ascending thoracic aorta is dilated up to 5 cm. Mild to moderate cardiomegaly with a small amount of left pericardial fluid or thickening. Electronically Signed by Rai Estrada MD 08/12/2018 04:42 P
[2018-08-12 16:57] LABS: CK-MB VALUE MASS 1.1 NG/ML (<3.6); CPK CREATINE PHOSPHOKINASE 49 U/L (39-308); MB/CK RELATIVE INDEX 2.24 (< OR =4); TROPONIN I < 0.02 NG/ML (< 0.10)
[2018-08-12 17:42] VITALS: BP 140/64
--- NOTE | 2018-08-13 08:24 | ED PDOC ---
Post-Departure Follow-Up dr malcolm faxed formal report of cta chest for fu Delicia Velazquez MD Aug 13, 2018 08:24
--- NOTE | 2018-08-13 13:12 | ECGEPIP ---
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
--- NOTE | 2018-08-13 13:17 | ECGEPIP ---
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
== END 2018-08-12 17:45 | disposition home or self-care (01) ==
LOC: M ED 10:21
DX: R07.9 Chest pain, unspecified (principal); R11.0 Nausea; R05 Cough; I10 Essential (primary) hypertension; I48.91 Unspecified atrial fibrillation; E78.5 Hyperlipidemia, unspecified; K21.9 Gastro-esophageal reflux disease without esophagitis; Z86.73 Personal history of transient ischemic attack (TIA), and cerebral infarction without residual deficits; Z82.49 Family history of ischemic heart disease and other diseases of the circulatory system; Z79.01 Long term (current) use of anticoagulants
CPT/HCPCS: 36415; 71046; 71275; 74177; 80048; 80076; 82550; 82553; 83690; 84439; 84443; 84484; 85025; 85610; 85730; 93005; 93041; 94760; 99285; Q9967

== ENCOUNTER 2018-08-24 08:00 | Outpatient (RCR) | payer MEDICARE, BC ==
[~2018-08-24 08:00] MED LIST changes: +LANS30CA93
== END 2018-08-29 ==
LOC: M PT 08:00
PROVIDERS: ATTEND Internal Medicine
DX: I69.398 Other sequelae of cerebral infarction (principal); R26.9 Unspecified abnormalities of gait and mobility

== ENCOUNTER → 2020-06-22 | Outpatient (REF) | payer MEDICARE, BC ==
[~2020-06-22] MED LIST changes: -AMLO10TA5 PO; +AMLO1TAB24 PO; +AMLO1TAB25 PO; -AMLO5TAB6 PO; +D 50CAP2 PO; +ELIQ5TAB PO; -LANS30CA93; +LANS30CA93 PO; -LISI-1046 PO; +LISI-898 PO; +LISI2.5T2 PO; +MAGN250T7 PO; +MONT10TA10 PO; -MONT10TA2 PO; +OXYB-54 PO; -OXYB5TAB PO; +RA B1TAB2 PO; -SIMV10TA2 PO; +SIMV10TA21 PO; +SODI1TAB12 PO; +VIT B COMPLEX PO
[2020-06-22 18:01] LABS: SODIUM,RANDOM URINE 48 MEQ/L
[2020-06-22 18:54] LABS: OSMOLALITY URINE 383 MOSM/KG (50-1400)
== END ==
LOC: M LAB REF 16:49
PROVIDERS: ATTEND Internal Medicine
DX: E87.0 Hyperosmolality and hypernatremia (principal)

== ENCOUNTER 2020-06-23 21:25 | Observation (INO) | payer MEDICARE, BC ==
[~2020-06-23] VITALS: Ht 170.2 cm; Wt 83.2 kg
[~2020-06-23 21:25] MED LIST changes: -D 50CAP2 PO; -ELIQ5TAB PO; -LISI-898 PO; -MAGN250T7 PO; -RA B1TAB2 PO; -SODI1TAB12 PO; -VIT B COMPLEX PO; +lisinopriL 5 MG TAB PO SCH
[2020-06-23] MEDS ORDERED: VIT B COMPLEX PO (21:54)
[2020-06-23] MEDS ORDERED: SODI1TAB12 PO (21:56)
[2020-06-23] MEDS ORDERED: D 50CAP2 PO (21:56)
[2020-06-23] MEDS ORDERED: MAGN250T7 PO (21:56)
[2020-06-23 22:09] LABS: BASO # 0.1 10^3/uL (0.0-0.2); BASO % 1.3 % (0.0-1.0); EOS # 0.3 10^3/uL (0.0-0.5); EOS % 3.9 % (0.0-3.0); HEMATOCRIT 41.1 % (42.0-52.0); LYMPH # 1.6 10^3/uL (1.5-5.0); LYMPH % 19.6 % (24.0-44.0); MEAN CORPUSCULAR HEMOGLOBIN 33.3 pg (27.0-33.0); MEAN CORPUSCULAR HGB CONC 34.1 g/dl (32.0-36.5); MEAN CORPUSCULAR VOLUME 97.9 fl (80.0-96.0); MONO % 12.5 % (2.0-8.0); NEUTROPHILS % 62.2 % (36.0-66.0); PLATELET COUNT, AUTOMATED 194 10^3/uL (150-450)
--- NOTE | 2020-06-23 22:22 | REPVR ---
PROCEDURE INFORMATION: Exam: CT Head Without Contrast Exam date and time: 06/23/2020 9:55 PM Age: 80 years old Clinical indication: Altered mental status/memory loss TECHNIQUE: Imaging protocol: Computed tomography of the head without contrast. Radiation optimization: All CT scans at this facility use at least one of these dose optimization techniques: automated exposure control; mA and/or kV adjustment per patient size (includes targeted exams where dose is matched to clinical indication); or iterative reconstruction. COMPARISON: CT Head without contrast 07/26/2018 5:52 PM FINDINGS: Brain: There is slight prominence of the peripheral sulci. There are a few small lacunar infarcts in the villanueva radiata which are similar to the prior study. Cerebral ventricles: There is slight prominence of the central ventricular system. Bones/joints: Unremarkable. No acute fracture. Paranasal sinuses: Visualized sinuses are unremarkable. No fluid levels. Mastoid air cells: Visualized mastoid air cells are well aerated. Soft tissues: Unremarkable. IMPRESSION: There has been little change from 07/26/2018 with minimal atrophy and a few small scattered old lacunar infarcts which are similar. Electronically signed by: Ole Givens On 06/23/2020 22:22:16 PM
[2020-06-23 22:43] LABS: ALBUMIN 4.1 GM/DL (3.2-5.2); ALT/SGPT 27 U/L (12-78); BILIRUBIN,DIRECT 0.1 MG/DL (0.0-0.2); BILIRUBIN,TOTAL 0.4 MG/DL (0.2-1.0); BLOOD UREA NITROGEN 20 MG/DL (7-18); CALCIUM LEVEL 9.4 MG/DL (8.8-10.2); CARBON DIOXIDE LEVEL 28 MEQ/L (21-32); CHLORIDE LEVEL 98 MEQ/L (98-107); CK-MB VALUE MASS < 1.0 NG/ML (<3.6); CPK CREATINE PHOSPHOKINASE 54 U/L (39-308); CREATININE FOR GFR 1.58 MG/DL (0.70-1.30); GLOMERULAR FILTRATION RATE 44.9 (>35); GLUCOSE, FASTING 114 MG/DL (70-100); MB/CK RELATIVE INDEX 1.85 (< OR =4); POTASSIUM SERUM 4.8 MEQ/L (3.5-5.1); SODIUM LEVEL 132 MEQ/L (136-145); TROPONIN I < 0.02 NG/ML (< 0.10)
--- NOTE | 2020-06-23 22:44 | REPVR ---
PROCEDURE INFORMATION: Exam: XR Chest Exam date and time: 06/23/2020 9:47 PM Age: 80 years old Clinical indication: Other: Altered mental status TECHNIQUE: Imaging protocol: XR of the chest. Views: 1 view. COMPARISON: [place] PORTABLE CHEST X-RAY 07/25/2018 3:37 AM FINDINGS: Tubes, catheters and devices: A right Port-A-Cath is unchanged. Lungs: There are no interval infiltrates. Pleural spaces: Unremarkable. No pleural effusion. No pneumothorax. Heart/Mediastinum: The heart and mediastinum are unchanged. Bones/joints: Unremarkable. IMPRESSION: There has been little change from 07/25/2018. No acute interval process is identified. Electronically signed by: Ole Givens On 06/23/2020 22:44:29 PM
[2020-06-23] MEDS ORDERED: ELIQ5TAB PO (23:13)
[2020-06-23] MEDS ORDERED: ACETAMINOPHEN TAB 650MG DOSE (2X325MG) PO PRN (23:20)
[2020-06-23] MEDS ORDERED: MAALOX 30 ML SUSP *UDC PO PRN (23:20)
[2020-06-23] MEDS ORDERED: MOM 30ML SUSPENSION UDC PO PRN (23:20)
--- NOTE | 2020-06-23 23:41 | HPEPDOC ---
[facility] Medical History & Physical Date of Admission Jun 23, 2020 Date of Service: Jun 23, 2020 Primary Care Physician: NGA KANG DO Attending Physician: SILVESTRE SIMS MD History and Physical TIME OF SERVICE: 1155PM CHIEF COMPLAINT: Shaky legs HISTORY OF PRESENT ILLNESS: This 80 yr old M came to the ER w his bc they were concerned that his MORALES and shaking legs may be due to a stroke; he has also had CP but denies dyspnea. He flew back to the area from [place] 10 days ago, reports being admitted at [facility] for a CVA recently, and saw with similar concerns about 3 days ago. He denies missing any doses of his medications. Bill Shabazz discussed the case with who felt that there may be a psychogenic component and recommended admission for observation w/o additional testing. ROS: 12 point ROS neg except as listed in HPI PAST MEDICAL/SURGICAL HISTORY: Essential Hypertension CVA of the right villanueva radiata in the setting of subtherapeutic INR Longstanding persistent A. 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 HOME MEDICATIONS: Please see below. PHYSICAL EXAMINATION: Vital Signs Date Time Temp Pulse Resp B/P (MAP) Pulse Ox O2 Delivery O2 Flow Rate FiO2 06/23/20 21:28 80 220/105 (143) 98 GENERAL APPEARANCE: well nourished and developed / slightly anxious HEENT: EOMI / MMM&P CARDIOVASCULAR: RRR/NMRG LUNGS: CTAB on RA / ABDOMEN: flat / soft MUSCULOSKELETAL: NCAT / TAMI x 4 NEUROLOGICAL: CN 2-12 intact except he is hard of hearing / strength 5/5 except at left hip flexor -5/5 PSYCHIATRIC: A&Ox 3 / able to understand and follow all commands LABORATORY DATA: POC Glucose (Misc Panel) 114H, POC Sodium (Misc Panel) 132L, POC Potassium (Misc Panel) 4.6, POC Chloride (Misc Panel) 96L, POC Total CO2 (Misc Panel) 30.0H, POC Blood Urea Nitrogen (Misc Panel 20, POC Ionized Calcium (Misc Panel) 4.7, POC Creatinine (Misc Panel) 1.6H, POC Hematocrit (Misc Panel) 43.0 06/23/20 21:59: Immature Granulocyte % (Auto) 0.5, Neutrophils (%) (Auto) 62.2, Lymphocytes (%) (Auto) 19.6L, Monocytes (%) (Auto) 12.5H, Eosinophils (%) (Auto) 3.9H, Basophils (%) (Auto) 1.3H, Neutrophils # (Auto) 5.0, Lymphocytes # (Auto) 1.6, Monocytes # (Auto) 1.0H, Eosinophils # (Auto) 0.3, Basophils # (Auto) 0.1, Nucleated Red Blood Cells % (auto) 0.0, Anion Gap 6L, Glomerular Filtration Rate 44.9, Calcium Level 9.4, Total Bilirubin 0.4, Direct Bilirubin 0.1, Aspartate Amino Transf ( T/SGOT) 31, Alanine Aminotransferase (ALT/SGPT) 27, Alkaline Phosphatase 120H, Total Creatine Kinase 54, Creatine Kinase MB < 1.0, Creatine Kinase MB Relative Index 1.85, Troponin I < 0.02, Total Protein 7.0, Albumin 4.1, Albumin/Globulin Ratio 1.4, Thyroid Stimulating Hormone (TSH) 1.450 IMAGING: Chest xray "IMPRESSION: There has been little change from 07/25/2018. No acute interval process is identified. CT head "IMPRESSION: There has been little change from 07/26/2018 with minimal atrophy and a few small scattered old lacunar infarcts which are similar MICROBIOLOGY: COVID 19 neg (received vaccine) ASSESSMENT: is an 80 yr old w a hx of HTN, CVA, A Fib, NHL, neuropathy, DLP, CKD3, DALJIT and OA who presented w c/o MORALES and shaky legs who will be admitted for HTN Urgency. PLAN: 1. MORALES may be due to HTN Urgency His SBP has been as high as 200 Trop wnl & CT of head unremarkable Plan: telemetry / Based on the results of the SPRINT trail on systolic BP in older adults over 75, who are ambulatory, treating to target an SBP is <120 will decrease his risk of CVD events & all cause mortality therefore we will increase the dose of Lisinopril from 2.5 to 5mg and schedule it at night so he will continue to have a nocturnal drop in BP & c/w amlodipine 10mg daily / we will ask RN to check BP in right arm and left arm as well 2 Chest pain EKG a fib with PACs w/o RVR Plan: telemetry /trend trops 3 BLE tremors Possibly due to anxiety vs deconditioning. His LLE is a bit weaker than the right & he hasn't been climbing stairs bc he is afraid he will fall Plan: I encouraged him to ride his stationary bike / the day time team may consider making arrangements for home PT/OT 4 Mild Hyponatremia Likely due to poor PO intake his BUN is also a bit elevated Plan: 500ml NS/ f/u repeat BMP in the morning 5 CKD 3 stable 6 hx of CVA 2/2 subtherapeutic INR Plan: c/w Apixaban & Simvastatin / obtain records from [facility] 7 Longstanding persistent A. fib Plan: c/w Apixaban 8 DLP Plan: c/w Simvastatin 9 DALJIT Plan: own CPAP DVT Px n/a on DOAC Dc plan : home after less than 2 midnights stay Home Medications Scheduled Amlodipine Besylate (Amlodipine Besylate) 10 Mg Tablet, 10 MG PO DAILY Apixaban (Eliquis) 5 Mg Tablet, 5 MG PO BID Cholecalciferol (Vitamin D3) (Vitamin D3) 125 Mcg Capsule, 125 MCG PO DAILY Lansoprazole (Lansoprazole) 30 Mg Capsule.dr, 30 MG PO BID Lisinopril (Lisinopril) 5 Mg Tablet, 5 MG PO QHS Magnesium Oxide (Magnesium) 250 Mg Tablet, 250 MG PO DAILY Simvastatin (Simvastatin) 10 Mg Tab, 10 MG PO QHS Sodium Chloride (Sodium Chloride) 1 Gm Tablet, 3 GM PO DAILY Vitamin B Complex (Vitamin B Complex) 1 Each Tablet, 1 TAB PO DAILY Scheduled PRN Acetaminophen (Acetaminophen) 500 Mg Tab, 1,000 MG PO Q8H PRN for PAIN Nitroglycerin (Nitrostat) 0.4 Mg Tab.subl, 0.4 MG SL NITRO PRN for CHEST PAIN Polyethylene Glycol 3350 (Miralax) 119 Gm Powder, 17 GM PO DAILY PRN for CONSTIPATION Allergies Coded Allergies: vincristine (Verified Allergy, Unknown, 07/25/18) neuropathy A-FIB/CHADSVASC A-FIB History Current/History of A-Fib/PAF?: No Current PO Anticoag Therapy: No SILVESTRE SIMS MD Jun 23, 2020 23:40
[2020-06-23 23:42] LABS: RSV AMPLIFICATION NEGATIVE (NEGATIVE)
[2020-06-24] MEDS ORDERED: AMLO1TAB25 PO (00:37)
[2020-06-24] MEDS ORDERED: RA B1TAB2 PO (00:37)
[2020-06-24] MEDS ORDERED: LISI2.5T2 PO (00:37)
[2020-06-24 00:38] VITALS: BP 163/80
[2020-06-24] MEDS ORDERED: MIRALAX *UNIT DOSE* 17GM PACKET PO PRN (01:15)
[2020-06-24] MEDS ORDERED: SIMVASTATIN 10 MG TAB PO SCH (01:15)
[2020-06-24] MEDS ORDERED: NITROGLYCERIN 0.4 MG SUBL TABLET SL PRN (01:15)
[2020-06-24] MEDS ORDERED: NS 500 ML IV ONE (01:55)
[2020-06-24] MEDS: APIXABAN 5 MG TAB (ELIQUIS) PO SCH ×2 (02:22→08:22)
[2020-06-24 02:35] VITALS: BP_SYST 137; BP_SYST 140; BP_DIAS 63; BP_DIAS 67
[2020-06-24 04:00] VITALS: BP 125/59
[2020-06-24 06:19] LABS: HEMATOCRIT 34.4 % (42.0-52.0); MEAN CORPUSCULAR HEMOGLOBIN 33.2 pg (27.0-33.0); MEAN CORPUSCULAR VOLUME 97.7 fl (80.0-96.0); PLATELET COUNT, AUTOMATED 156 10^3/uL (150-450); RED BLOOD COUNT 3.52 10^6/uL (4.30-6.10); WHITE BLOOD COUNT 6.4 10^3/uL (4.0-10.0)
[2020-06-24 06:23] LABS: HEMOGLOBIN 11.7 g/dl (13.5-17.5)
[2020-06-24 06:38] LABS: BLOOD UREA NITROGEN 18 MG/DL (7-18); CALCIUM LEVEL 8.2 MG/DL (8.8-10.2); CARBON DIOXIDE LEVEL 28 MEQ/L (21-32); CHLORIDE LEVEL 100 MEQ/L (98-107); CREATININE FOR GFR 1.14 MG/DL (0.70-1.30); GLOMERULAR FILTRATION RATE > 60.0 (>35); GLUCOSE, FASTING 98 MG/DL (70-100); POTASSIUM SERUM 4.2 MEQ/L (3.5-5.1); SODIUM LEVEL 133 MEQ/L (136-145); TROPONIN I 0.02 NG/ML (< 0.10)
[2020-06-24 08:00] VITALS: BP_SYST 130; BP_SYST 145; BP_DIAS 60; BP_DIAS 69
[2020-06-24 08:21] VITALS: BP 130/60
[2020-06-24] MEDS ORDERED: MAGNESIUM OXIDE 400MG TAB (MAG-OX) PO SCH (09:00)
[2020-06-24] MEDS ORDERED: VITAMIN D 1,000 INTERNATIONAL UNITS TABLET PO SCH (09:00)
[2020-06-24] MEDS ORDERED: OMEPRAZOLE 20 MG CAP PO SCH (09:00)
--- NOTE | 2020-06-24 10:59 | DS.PDOC ---
Discharge Summary General Date of Admission Jun 23, 2020 at 21:26 Date of Discharge 06/24/2020 Discharge Summary PROCEDURES PERFORMED DURING STAY: [None]. ADMITTING DIAGNOSES / DISCHARGE DIAGNOSES: s/p Shaky legs HTN Chronic hyponatremia (mild) CKD3 Hx of CVA 2/2 subtherapeutic INR Longstanding persistent A. fib DLP DALJIT GERD DVT prophylaxis COMPLICATIONS/CHIEF COMPLAINT: Shaky legs HISTORY OF PRESENT ILLNESS: Patient is an 80-year-old male with a PMHx of HTN, CVA (R villanueva radiata), A. 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 Patient has returned to the area from [place] 10 days prior. Patient reports that he was at [facility] for CVA recently has followed up with Dr. Eugene locally approximately 3 days prior. Patient was admitted to the hospitalist service under observation status for further evaluation. Patient was seen and examined at the bedside. Patient denies any chest pain, shortness of breath, palpitations. Has not experience any nausea, vomiting, abdominal pain or diarrhea. Patient has worked with physical therapy for home s afety evaluation today and has cleared. HOSPITAL COURSE: s/p Shaky legs - Patient has had improvement of his symptoms this morning - Physicals without any focal neurologic deficit - EKG reviewed - Troponin trend negative - Noted below - Cleared safety evaluation - Will have outpatient follow-up with primary care provider and neurology within the next 7 days - Will discharge home with services for additional physical therapy as needed HTN - s/p Urgency - Blood pressure remains better controlled after continuing home medications - c/w Amlodipine / Lisinopril at increased dose Chronic hyponatremia (mild) - likely secondary to hypotonic, hypovolemic etiology - Has improved with IV fluid hydration - Patient has been advised to increase his oral hydration CKD3 - Cr appears to have improved with IV fluid hydration - Will DC IV fluids on discharge - Patient has been advised to increase his oral hydration Hx of CVA 2/2 subtherapeutic INR - c/w Eliquis, Simvastatin - Will have outpatient follow-up with neurology within the next 7 days Longstanding persistent A. fib - Currently appears rate controlled - Continue with full anticoagulation with Eliquis DLP - c/w Simvastatin DALJIT - Allow home CPAP use while inpatient GERD - c/w Omeprazole DVT prophylaxis - Continue with full anticoagulation with Eliquis DISCHARGE MEDICATIONS: Please see below. ALLERGIES: Please see below. PHYSICAL EXAMINATION ON DISCHARGE: Vitals (See below) General: Lying in bed, no acute distress, comfortable, Awake / Alert HEENT: NC, AT CVS: +S1S2 Lungs: Fair air entry b/l, -w/r/r Abdomen: Soft, ND, NT Extremities: No evidence of edema, - Calf tenderness LABORATORY DATA: Please see below. IMAGING: CXR 06/23: There has been little change from 07/25/2018. No acute interval process is identified. CT head 06/23: There has been little change from 07/26/2018 with minimal atrophy and a few small scattered old lacunar infarcts which are similar. ACTIVITY: [As tolerated]. DISCHARGE PLAN: Follow-up with primary care provider and neurology within the next 7 days Remain compliant with treatment plan and medications Return to the ER if you experience any problems DISPOSITION: Home with services DISCHARGE CONDITION: [Stable]. TIME SPENT ON DISCHARGE: 30 minutes. Vital Signs/I&Os Vital Signs Date Time Temp Pulse Resp B/P (MAP) Pulse Ox O2 Delivery O2 Flow Rate FiO2 06/24/20 08:21 63 130/60 06/24/20 08:00 97.8 16 94 Room Air I&O- Last 24 Hours up to 6 AM 06/24/20 06:00 Intake Total 300 ml Output Total 975 ml Balance -675 ml Laboratory Data Labs 24H Laboratory Tests 2 06/23/20 21:51: POC Glucose (Misc Panel) 114H, POC Sodium (Misc Panel) 132L, POC Potassium (Misc Panel) 4.6, POC Chloride (Misc Panel) 96L, POC Total CO2 (Misc Panel) 30.0H, POC Blood Urea Nitrogen (Misc Panel 20, POC Ionized Calcium (Misc Panel) 4.7, POC Creatinine (Misc Panel) 1.6H, POC Hematocrit (Misc Panel) 43.0 06/23/20 21:59: Immature Granulocyte % (Auto) 0.5, Neutrophils (%) (Auto) 62.2, Lymphocytes (%) (Auto) 19.6L, Monocytes (%) (Auto) 12.5H, Eosinophils (%) (Auto) 3.9H, Basophils (%) (Auto) 1.3H, Neutrophils # (Auto) 5.0, Lymphocytes # (Auto) 1.6, Monocytes # (Auto) 1.0H, Eosinophils # (Auto) 0.3, Basophils # (Auto) 0.1, Nucleated Red Blood Cells % (auto) 0.0, Anion Gap 6L, Glomerular Filtration Rate 44.9, Calcium Level 9.4, Total Bilirubin 0.4, Direct Bilirubin 0.1, Aspartate Amino Transf (AST/SGOT) 31, Alanine Aminotransferase (ALT/SGPT) 27, Alkaline Phosphatase 120H, Total Creatine Kinase 54, Creatine Kinase MB < 1.0, Creatine Kinase MB Relative Index 1.85, Troponin I < 0.02, Total Protein 7.0, Albumin 4.1, Albumin/Globulin Ratio 1.4, Thyroid Stimulating Hormone (TSH) 1.450 06/23/20 22:44: Coronavirus (COVID-19)(PCR) NEGATIVE, Influenza Type A (RT-PCR) NEGATIVE, Influenza Type B (RT-PCR) NEGATIVE, Respiratory Syncytial Virus (PCR) NEGATIVE 06/24/20 02:07: Troponin I < 0.02 06/24/20 05:54: Nucleated Red Blood Cells % (auto) 0.0, Anion Gap 5L, Glomerular Filtration Rate > 60.0, Calcium Level 8.2L, Troponin I 0.02 CBC/BMP Laboratory Tests 06/23/20 21:59 06/24/20 05:54 Discharge Medications Scheduled Amlodipine Besylate (Amlodipine Besylate) 10 Mg Tablet, 10 MG PO DAILY, (Reported) Apixaban (Eliquis) 5 Mg Tablet, 5 MG PO BID, (Reported) Cholecalciferol (Vitamin D3) (Vitamin D3) 125 Mcg Capsule, 125 MCG PO DAILY, (Reported) Lansoprazole (Lansoprazole) 30 Mg Capsule.dr, 30 MG PO BID, (Reported) Lisinopril (Lisinopril) 2.5 Mg Tablet, 2.5 MG PO DAILY, (Reported) Magnesium Oxide (Magnesium) 250 Mg Tablet, 250 MG PO DAILY, (Reported) Simvastatin (Simvastatin) 10 Mg Tab, 10 MG PO QHS, (Reported) Sodium Chloride (Sodium Chloride) 1 Gm Tablet, 3 GM PO DAILY, (Reported) Vitamin B Complex (Vitamin B Complex) 1 Each Tablet, 1 TAB PO DAILY, (Reported) Scheduled PRN Acetaminophen (Acetaminophen) 500 Mg Tab, 1,000 MG PO Q8H PRN for PAIN, (Reported) Nitroglycerin (Nitrostat) 0.4 Mg Tab.subl, 0.4 MG SL NITRO PRN for CHEST PAIN, (Reported) Polyethylene Glycol 3350 (Miralax) 119 Gm Powder, 17 GM PO DAILY PRN for CONSTIPATION, (Reported) Allergies Coded Allergies: vincristine (Verified Allergy, Unknown, 07/25/18) neuropathy RON YARBROUGH MD Jun 24, 2020 10:59
[2020-06-24] MEDS ORDERED: LISI-898 PO (11:00)
--- NOTE | 2020-06-24 11:50 | ECGEPIP ---
[facility] - ED Test Date: 2020-06-23 Pat Name: EMMA WELLINGTON Department: Room: [place] [address] Gender: Male Functional Director: JENNIFER : 1940 Requested By: Julianna Chun Order Number: [id number] Reading MD: Julianna Chun Measurements Intervals [place] Rate: 79 P: VT: QRS: 3 QRSD: 80 T: 47 QT: 376 QTc: 431 Interpretive Statements Atrial fibrillation with premature ventricular or aberrantly conducted complexes Nonspecific ST and T wave abnormality increased ectopy/rate 08/12/18 Electronically Signed on 06-24-2020 11:49:42 EDT by Julinana Chun
[2020-06-24 12:00] VITALS: BP 157/67
== END 2020-06-24 13:15 | disposition home health service (06) ==
LOC: M ED 21:25 → M ED INP 21:26 → ENRESERV 06-24 → M PCU 06-24 00:36
PROVIDERS: ADMIT Internal Medicine; ATTEND Internal Medicine
DX: R25.1 Tremor, unspecified (principal); I12.9 Hypertensive chronic kidney disease with stage 1 through stage 4 chronic kidney disease, or unspecified chronic kidney disease; N18.30 Chronic kidney disease, stage 3 unspecified; Z86.73 Personal history of transient ischemic attack (TIA), and cerebral infarction without residual deficits; I48.11 Longstanding persistent atrial fibrillation; E78.49 Other hyperlipidemia; G47.33 Obstructive sleep apnea (adult) (pediatric); K21.9 Gastro-esophageal reflux disease without esophagitis; Z79.01 Long term (current) use of anticoagulants; Z79.899 Other long term (current) drug therapy; Z88.8 Allergy status to other drugs, medicaments and biological substances
CPT/HCPCS: 36415; 70450; 71045; 80047; 80048; 80076; 82550; 82553; 84443; 84484; 85025; 85027; 86850; 86900; 86901; 87631; 93005; 93041; 94760; 96360; 97161; 99285; G0378

== ENCOUNTER → 2020-07-11 | Outpatient (REF) | payer MEDICARE, BC ==
[~2020-07-11] MED LIST changes: +D 50CAP2 PO; +ELIQ5TAB PO; +LISI-898 PO; +MAGN250T7 PO; +RA B1TAB2 PO; +SODI1TAB12 PO; +VIT B COMPLEX PO; -lisinopriL 5 MG TAB PO SCH
[2020-07-11 12:50] LABS: RHEUMATOID FACTOR QUANT < 10.0 IU/ML (<15.0)
[2020-07-11 13:07] LABS: VITAMIN B12 LEVEL 999 PG/ML
== END ==
LOC: M LAB REF 12:02
PROVIDERS: ATTEND Internal Medicine
DX: R41.3 Other amnesia (principal)

== ENCOUNTER → 2020-09-15 | Outpatient (CLI) | payer MEDICARE, BC ==
[~2020-09-15] MED LIST changes: +DULC5TAB PO
== END ==
LOC: M LABSMTC 09:34
PROVIDERS: ATTEND Anesthesiology
DX: Z20.828 Contact with and (suspected) exposure to other viral communicable diseases (principal); Z11.59 Encounter for screening for other viral diseases

== ENCOUNTER 2020-09-20 10:26 | Observation (INO) | payer MEDICARE, BC ==
[~2020-09-20] VITALS: Ht 172.7 cm; Wt 82.6 kg
[~2020-09-20 10:26] MED LIST changes: +NS 1,000 ML IV ONE
[2020-09-20] MEDS ORDERED: propofoL 500 MG/50 ML VIAL As Ordered ONE (11:38)
[2020-09-20] MEDS ORDERED: LIDOCAINE 2% 100MG/5ML SDV (FOR ANES.) As Ordered ONE (11:38)
--- NOTE | 2020-09-20 11:57 | ROOR ---
Patient Name: Sj Victoria Procedure Date: 09/20/2020 11:20 AM Date of : 1940 Age: 80 Room: [facility] Gender: Male Note Status: Finalized Procedure: Colonoscopy Indications: High risk colon cancer surveillance: Personal history of colonic polyps, Incidental - Constipation Providers: James Meeks Jr, MD Referring MD: Carri Ventura DO Requesting Provider: Medicines: Propofol per Anesthesia Complications: No immediate complications. Procedure: Pre-Anesthesia Assessment: - Prior to the procedure, a History and Physical was performed, and patient medications and allergies were reviewed. The patient is competent. The risks and benefits of the procedure and the sedation options and risks were discussed with the patient. All questions were answered and informed consent was obtained. Patient identification and proposed procedure were verified by the physician and the nurse in the pre-procedure area and in the procedure room. Mental Status Examination: alert and oriented. Airway Examination: normal oropharyngeal airway and neck mobility. Respiratory Examination: clear to auscultation. CV Examination: normal. ASA Grade Assessment: II - A patient with mild systemic disease. After reviewing the risks and benefits, the patient was deemed in satisfactory condition to undergo the procedure. The anesthesia plan was to use moderate sedation / analgesia (conscious sedation). Immediately prior to administration of medications, the patient was re-assessed for adequacy to receive sedatives. The heart rate, respiratory rate, oxygen saturations, blood pressure, adequacy of pulmonary ventilation, and response to care were monitored throughout the procedure. The physical status of the patient was re-assessed after the procedure. The Colonoscope was introduced through the anus and advanced to the cecum, identified by appendiceal orifice and ileocecal valve. The colonoscopy was unusually difficult due to poor bowel prep with stool present. Successful completion of the procedure was aided by lavage. The quality of the bowel preparation was poor. The patient tolerated the procedure well. Findings: Multiple small and large-mouthed diverticula were found in the sigmoid colon. The sigmoid colon, descending colon and transverse colon were moderately redundant. Two polyps were found in the transverse colon. The polyps were diminutive in size. Fulguration to ablate the lesion by hot biopsy forceps was successful. The rectum, recto-sigmoid colon, ascending colon, cecum, appendiceal orifice and ileocecal valve appeared normal. Impression: - Preparation of the colon was poor. - Diverticulosis in the sigmoid colon. - Redundant colon. - Two diminutive polyps in the transverse colon. Treated with hot biopsy forceps. - The rectum, recto-sigmoid colon, ascending colon, cecum, appendiceal orifice and ileocecal valve are normal. - No specimens collected. Recommendation: - Discharge patient to home (ambulatory). Procedure Code(s): --- Professional --- 87871, Colonoscopy, flexible; with ablation of tumor(s), polyp(s), or other lesion(s) (includes pre- and post-dilation and guide wire passage, when performed) Diagnosis Code(s): --- Professional --- Z86.010, Personal history of colonic polyps K63.5, Polyp of colon K57.30, Diverticulosis of large intestine without perforation or abscess without bleeding Q43.8, Other specified congenital malformations of intestine CPT copyright 2019 [employer]. All rights reserved. The codes documented in this report are preliminary and upon programmer business review may be revised to meet current compliance requirements. James Meeks MD James Meeks Jr, MD 09/20/2020 11:57:10 AM Electronically signed by James Meeks Jr, MD Number of Addenda: 0 Note Initiated On: 09/20/2020 11:20 AM Estimated Blood Loss: Estimated blood loss: none.
[2020-09-20] MEDS ORDERED: LR 1,000 ML IV SCH (13:35)
[2020-09-20] MEDS: LABETALOL 100MG/20ML VIAL IV PRN ×3 (13:49→14:10)
[2020-09-20 14:56] LABS: HEMATOCRIT 36.9 % (42.0-52.0); HEMOGLOBIN 12.7 g/dl (13.5-17.5); MEAN CORPUSCULAR HEMOGLOBIN 33.3 pg (27.0-33.0); MEAN CORPUSCULAR HGB CONC 34.4 g/dl (32.0-36.5); MEAN CORPUSCULAR VOLUME 96.9 fl (80.0-96.0); PLATELET COUNT, AUTOMATED 155 10^3/uL (150-450); RED BLOOD COUNT 3.81 10^6/uL (4.30-6.10); WHITE BLOOD COUNT 5.2 10^3/uL (4.0-10.0)
[2020-09-20 15:13] LABS: BLOOD UREA NITROGEN 15 MG/DL (7-18); CALCIUM LEVEL 8.4 MG/DL (8.8-10.2); CARBON DIOXIDE LEVEL 30 MEQ/L (21-32); CHLORIDE LEVEL 97 MEQ/L (98-107); CREATININE FOR GFR 1.13 MG/DL (0.70-1.30); GLOMERULAR FILTRATION RATE > 60.0 (>35); GLUCOSE, FASTING 111 MG/DL (70-100); POTASSIUM SERUM 3.4 MEQ/L (3.5-5.1); SODIUM LEVEL 133 MEQ/L (136-145); TROPONIN I < 0.02 NG/ML (< 0.10)
[2020-09-20] MEDS ORDERED: MIRALAX *UNIT DOSE* 17GM PACKET PO PRN (15:25)
[2020-09-20] MEDS ORDERED: MOM 30ML SUSPENSION UDC PO PRN (15:25)
[2020-09-20] MEDS ORDERED: LABETALOL 100MG/20ML VIAL IV PRN (15:25)
[2020-09-20] MEDS ORDERED: NS 500 ML IV ONE (15:55)
[2020-09-20 16:00] VITALS: BP 180/82
--- NOTE | 2020-09-20 16:08 | HPEPDOC ---
[facility] Medical History & Physical Date of Admission Sep 20, 2020 Date of Service: Sep 20, 2020 Attending Physician: ARPIT MAGANA MD MPH History and Physical CHIEF COMPLAINT: HTN Urgency HISTORY OF PRESENT ILLNESS: Mr. Victoria is a pleasant 80 year old male with very mild vascular dementia who was admitted to the inpatient medical service following sustained episodes of HTN (>200/100) following moderate sedation with colonoscopy. He has a cardiac history and is closely followed by Cardiology. His reports that his Eliquis, which he takes for his history of a fib, was held for 3 days prior to his colonoscopy and that he did not take his medications this morning in preparation for the upcoming procedure. Per GI, patient did not have any abnormal course intraoperatively or prolonged anesthesia post operatively. Patient and his state that his blood pressures are typically low in the 100s and that he has had intermittent episodes of syncope and dizziness that are being evaluated by his outpatient Production Team Manager. PAST MEDICAL HISTORY: Dementia CAD HTN HLD Diverticulitis GERD DALJIT on CPAP A fib on Apixaban CVA With residual vascular dementia BPH NHL s/p l nephrectomy and chemo; in remission Vincristine induce neuropathy CKD III PAST SURGICAL HISTORY: Left nephrectomy Appendectomy Hemorrhoidectomy Polypectomy R knee replacement Cardiac cathx2 Laminectomy of c spine SOCIAL HISTORY: Marital status: Resides in: home with Children: adult Employment: retired Tobacco use:none ETOH: no recent Other relevant social factors: ambulates with cane outside of home, without cane inside home FAMILY HISTORY: Non contributory ALLERGIES: Please see below. REVIEW OF SYSTEMS: 10 point ROS was obtained and was unremarkable except as noted above. HOME MEDICATIONS: Please see below. PHYSICAL EXAMINATION: VITAL SIGNS: Reviewed GENERAL APPEARANCE: Well appearing, older male, lying in bed, NAD HEENT: poor dentition with missing teeth, MMM and EOMI CARDIOVASCULAR: irregularly irregular but rate controlled, no appreciable m/r/g, no lower extremity edema LUNGS: CTAB ABDOMEN: soft, non tender to palpation MUSCULOSKELETAL: no deformities EXTREMITIES: No rashes NEUROLOGICAL: AOx2, not oriented to year, otherwise no FND PSYCHIATRIC: Euthymic LABORATORY DATA: See below. IMAGING: CT Head pending, CXR pending MICROBIOLOGY: Please see below. ASSESSMENT: Mr. Victoria is a pleasant 80 year old male with history of persistent Afib and HTN who was admitted to the hospitalist service from PACU post colonoscopy for hypertensive urgency. Initial EKG showed atrial fibrillation and troponins were negative. PLAN: Hypertensive urgency: Patient was admitted several months ago for similar presentation after holding antihypertensives briefly. He was restarted and medications were uptitrated slightly. Episode today could be 2/2 anesthesia as well as holding medications overnight. Will continue to trend troponins and admit to PCU for blood pressure control and tele monitoring. Will also obtain CT head in setting of MORALES and lower extremity duplex and CTA chest for concern for DVT/PE in setting of holding apixaban. Echo obtained 1 year ago showed no heart failure. Should he have abnormalities on tele or evidence of PE, would evaluate for heart strain with inpatient echo, otherwise would defer to outpatient Production Team Manager for determination of need for echo. Meds: Restart Lisinopril 5mg QHS Provide with hydralazine 10mg BID PO with holding parameters Labetalol 5mg Q4H PRN HTN >180/90 Likely restart Amlodipine 10mg QAM which was previously stopped as outpatient. Tele CT Head CTA Chest with hydration B/U LE Duplex Trend troponins # constipation: Patient reports constipation which was in part the reason for his colonoscopy today. Will provide with MoM PRN and Miralax BID with hold parameters. # mild normocytic anemia: H&H is at baseline, iron studies obtained last admission were WNL, encourage following up with PCM. # HLD: Continue Simvastatin # Dementia: Strict day/night cycling # DALJIT: Will provide with CPAP overnight DISPO: PCU on tele for Obs DIET: Cardiac DVT PROPHY: Apixaban CONSULTS: PT/OT DISCHARGE: Anticipate <2 MN pending BP control Vital Signs Vital Signs Date Time Temp Pulse Resp B/P (MAP) Pulse Ox O2 Delivery O2 Flow Rate FiO2 09/20/20 15:30 62 16 171/84 (113) 97 Room Air 09/20/20 12:30 96.8 Laboratory Data Labs 24H Laboratory Tests 2 09/20/20 14:37: Nucleated Red Blood Cells % (auto) 0.0, Anion Gap 6L, Glomerular Filtration Rate > 60.0, Calcium Level 8.4L, Troponin I < 0.02 CBC/BMP Laboratory Tests 09/20/20 14:37 Home Medications Scheduled Apixaban (Eliquis) 5 Mg Tablet, 5 MG PO BID Bisacodyl (Dulcolax) 5 Mg Tablet.dr, 5 MG PO PRN Cholecalciferol (Vitamin D3) (Vitamin D3) 125 Mcg Capsule, 125 MCG PO DAILY Lansoprazole (Lansoprazole) 30 Mg Capsule.dr, 30 MG PO BID Lisinopril (Lisinopril) 5 Mg Tablet, 5 MG PO QHS Magnesium Oxide (Magnesium) 250 Mg Tablet, 250 MG PO DAILY Simvastatin (Simvastatin) 10 Mg Tab, 10 MG PO QHS Vitamin B Complex (Vitamin B Complex) 1 Each Tablet, 1 TAB PO DAILY Scheduled PRN Polyethylene Glycol 3350 (Miralax) 119 Gm Powder, 17 GM PO DAILY PRN for CONSTIPATION Allergies Coded Allergies: ENVIROMENTAL (Verified Allergy, Unknown, 09/11/20) A-FIB/CHADSVASC A-FIB History Current/History of A-Fib/PAF?: Yes Current PO Anticoag Therapy: Yes Treatment Treatment ordered: Apixaban ARPIT MAGANA MD MPH Sep 20, 2020 15:45
[2020-09-20] MEDS ORDERED: ISOVUE-370 76% 100ML VIAL As Ordered ONE (16:13)
--- NOTE | 2020-09-20 16:14 | REP ---
INDICATION: hypertensive urgency. COMPARISON: 06/23/2020. TECHNIQUE: Single portable AP view of the chest was performed. FINDINGS: There is no evidence of acute infiltrate or pulmonary edema. The heart is upper limits of normal in size. There is stable calcification and tortuosity of the thoracic aorta. The mediastinal silhouette is unchanged. A right central venous catheter is again seen with tip in the superior vena cava. IMPRESSION: No acute pulmonary disease. <Electronically signed by Rai Estrada > 09/20/20 [id number]
[2020-09-20] MEDS ORDERED: hydrALAZINE 20MG/ML 1ML VIAL (J0360 PER 20MG) IV PRN ×2 (16:15→18:35)
--- NOTE | 2020-09-20 17:56 | REPVR ---
PROCEDURE INFORMATION: Exam: CTA Chest With Contrast Exam date and time: 09/20/2020 5:25 PM Age: 80 years old Clinical indication: Other: Afib; Additional info: HTN urgency has persistent a fib now off of eliquis TECHNIQUE: Imaging protocol: Computed tomographic angiography of the chest with contrast. 3D rendering (Not supervised by radiologist): MIP and/or 3D reconstructed images were created by the technologist. Radiation optimization: All CT scans at this facility use at least one of these dose optimization techniques: automated exposure control; mA and/or kV adjustment per patient size (includes targeted exams where dose is matched to clinical indication); or iterative reconstruction. Contrast material: ISOVUE 370; Contrast volume: 75 ml; Contrast route: INTRAVENOUS (IV); COMPARISON: CT ANGIO CHEST 08/12/2018 11:59 AM FINDINGS: Pulmonary arteries: Normal. No pulmonary emboli. Aorta: There is a 47 x 48 mm stable ascending aortic aneurysm. Lungs: Unremarkable. No consolidation. No masses. Pleural spaces: Unremarkable. No pneumothorax. No pleural effusion. Heart: Decrease of the pericardial effusion with stable mild cardiomegaly. Lymph nodes: Unremarkable. No enlarged lymph nodes. Liver: There is a stable liver cyst. Adrenal glands: Left nephrectomy with questionable calcification of a small left adrenal gland. Bones/joints: Unremarkable. No acute fracture. Soft tissues: Unremarkable. Other findings: Stable vascular calcifications. IMPRESSION: No evidence of pulmonary emboli. Electronically signed by: Hang Torres On 09/20/2020 17:56:16 PM
[2020-09-20 17:58] VITALS: BP 181/80
--- NOTE | 2020-09-20 18:24 | REPVR ---
PROCEDURE INFORMATION: Exam: CT Head Without Contrast Exam date and time: 09/20/2020 5:25 PM Age: 80 years old Clinical indication: Pain; Other: Hypertensive urgency; Headache; Additional info: Hypertensive urgency with headache TECHNIQUE: Imaging protocol: Computed tomography of the head without contrast. Radiation optimization: All CT scans at this facility use at least one of these dose optimization techniques: automated exposure control; mA and/or kV adjustment per patient size (includes targeted exams where dose is matched to clinical indication); or iterative reconstruction. COMPARISON: CT Head without contrast 06/23/2020 9:51 PM FINDINGS: Brain: Global cerebral atrophy is consistent with patient's age. Decreased attenuation within the white matter tracts of both cerebral hemispheres is nonspecific but typically seen with small vessel disease/chronic white matter ischemic changes of aging. Old small right periventricular white matter infarct, unchanged. No abnormal intra-axial or extra-axial fluid collections. No intracranial hemorrhage or mass effect. Cerebral ventricles: No ventriculomegaly. Paranasal sinuses: Visualized sinuses are unremarkable. No fluid levels. Mastoid air cells: Visualized mastoid air cells are well aerated. Bones/joints: Unremarkable. No acute fracture. Soft tissues: Unremarkable. IMPRESSION: No acute abnormality. Electronically signed by: Bryant Byrd On 09/20/2020 18:23:58 PM
[2020-09-20] MEDS ORDERED: hydrALAZINE 20MG/ML 1ML VIAL (J0360 PER 20MG) IV ONE (18:35)
[2020-09-20 20:00] VITALS: BP 145/81
[2020-09-20] MEDS: APIXABAN 5 MG TAB (ELIQUIS) PO SCH (20:30)
[2020-09-20] MEDS ORDERED: SIMVASTATIN 10 MG TAB PO SCH (21:00)
[2020-09-20] MEDS ORDERED: **hydrALAZINE** 10 MG TAB PO SCH (21:00)
[2020-09-20] MEDS ORDERED: lisinopriL 5 MG TAB PO SCH (21:00)
--- NOTE | 2020-09-20 21:59 | REPVR ---
PROCEDURE INFORMATION: Exam: US Duplex Lower Extremity Veins, Bilateral Exam date and time: 09/20/2020 9:25 PM Age: 80 years old Clinical indication: Other: HTN; Additional info: HTN urgency after stopping eliquis R/O dvt/pe TECHNIQUE: Imaging protocol: Real-time duplex ultrasound of the extremities with 2-D thompson scale, color Doppler flow and spectral waveform analysis with image documentation. Complete exam focused on the bilateral lower extremity veins. COMPARISON: No relevant prior studies available. FINDINGS: Right deep veins: Unremarkable. The common femoral, femoral and popliteal veins are patent without thrombus. Normal Doppler waveforms. Normal compressibility and/or augmentation response. Right superficial veins: Saphenofemoral junction is patent without thrombus. Left deep veins: Unremarkable. The common femoral, femoral and popliteal veins are patent without thrombus. Normal Doppler waveforms. Normal compressibility and/or augmentation response. Left superficial veins: Saphenofemoral junction is patent without thrombus. Soft tissues: Unremarkable. IMPRESSION: No sonographic evidence of deep vein thrombosis. Electronically signed by: Andres Lerner On 09/20/2020 21:59:13 PM
[2020-09-21] VITALS: BP 129/57
[2020-09-21] MEDS: ACETAMINOPHEN TAB 650MG DOSE (2X325MG) PO PRN ×2 (02:44→09:28)
[2020-09-21 04:00] VITALS: BP 202/91
--- NOTE | 2020-09-21 07:54 | IPNPDOC ---
Text Note Date of Service The patient was seen on 09/21/20. NOTE Hospitalist Progress Note Subjective: Patient was sleeping in his bed when I entered the room, but was easily aroused. He reports that yesterday he did have a headache, and perhaps some mild lightheadedness, but overall he seems to be feeling well, and this morning he feels as though he is feeling better. At this time, the remainder of his review of systems is negative. Objective: General: Awake, alert, oriented 3. Not in any acute distress. HEENT: Head normocephalic, atraumatic, sclera are nonicteric. Hearing is grossly intact to conversation. Respiratory: Clear to auscultation bilaterally with no wheezes, rales, or rhonchi. Cardiovascular: Regular rate and rhythm, with no rubs, gallops, or murmur. Abdomen: Soft, nontender, nondistended, no hepatosplenomegaly appreciated. Bowel sounds present. Extremities: 2+ pulses in the radial and dorsalis pedis bilaterally. No evidence of clubbing or cyanosis. Assessment: Hypertensive urgency Constipation Mild normocytic anemia Hyperlipidemia Dementia Obstructive sleep apnea Plan: Bilateral lower extremity Doppler ultrasound, and CT angio of the chest, head CT, and chest x-ray have all been reviewed and found to be unremarkable. He did not have any events on telemetry overnight. Apparently he was on amlodipine 10 mg daily as an outpatient which had been recently discontinued, which is in addition to his lisinopril 5 mg nightly. Will restart his amlodipine 10 mg this morning, and continue to monitor his pr essure throughout the day. Hydralazine as needed is still ordered for blood pressures greater than 180/90 Otherwise, no other changes in his medications at this time. VS,Fishbone, I+O VS, Fishbone, I+O Laboratory Tests 09/20/20 14:37 Vital Signs Date Time Temp Pulse Resp B/P (MAP) Pulse Ox O2 Delivery O2 Flow Rate FiO2 09/21/20 04:23 185/80 09/21/20 04:00 97.7 74 23 97 Room Air I&O- Last 24 Hours up to 6 AM 09/21/20 06:00 Intake Total 740 ml Output Total 925 ml Balance -185 ml DAWSON SUAREZ DO Sep 21, 2020 07:54
[2020-09-21 08:00] VITALS: BP 113/58
[2020-09-21 08:41] LABS: HEMATOCRIT 34.7 % (42.0-52.0); MEAN CORPUSCULAR HEMOGLOBIN 33.4 pg (27.0-33.0); MEAN CORPUSCULAR HGB CONC 34.6 g/dl (32.0-36.5); MEAN CORPUSCULAR VOLUME 96.7 fl (80.0-96.0); PLATELET COUNT, AUTOMATED 160 10^3/uL (150-450); RED BLOOD COUNT 3.59 10^6/uL (4.30-6.10); WHITE BLOOD COUNT 8.6 10^3/uL (4.0-10.0)
[2020-09-21 09:17] LABS: BLOOD UREA NITROGEN 14 MG/DL (7-18); CALCIUM LEVEL 8.6 MG/DL (8.8-10.2); CARBON DIOXIDE LEVEL 28 MEQ/L (21-32); CHLORIDE LEVEL 100 MEQ/L (98-107); CREATININE FOR GFR 1.15 MG/DL (0.70-1.30); GLOMERULAR FILTRATION RATE > 60.0 (>35); GLUCOSE, FASTING 105 MG/DL (70-100); POTASSIUM SERUM 4.1 MEQ/L (3.5-5.1); SODIUM LEVEL 136 MEQ/L (136-145)
[2020-09-21 09:19] VITALS: BP 113/58
[2020-09-21] MEDS: APIXABAN 5 MG TAB (ELIQUIS) PO SCH (09:19)
[2020-09-21 12:00] VITALS: BP_SYST 128; BP_SYST 160; BP_DIAS 61; BP_DIAS 68
[2020-09-21] MEDS ORDERED: AMLO1TAB24 PO (15:27)
--- NOTE | 2020-09-21 17:42 | DS.PDOC ---
Discharge Summary General Date of Admission Sep 20, 2020 at 15:25 Date of Discharge 09/21/2020 Discharge Summary PRIMARY CARE PHYSICIAN: Dr. Lorenzo DO ATTENDING AT TIME OF DISCHARGE: Dr. Dawson Suarez DO DISCHARGE DIAGNOS(E)S: Hypertensive urgency Constipation Mild normocytic anemia Hyperlipidemia Dementia Obstructive sleep apnea HPI & HOSPITAL COURSE: Patient had persistently elevated blood pressure after outpatient colonoscopy procedure therefore he was admitted to the inpatient service for management of hypertensive urgency. It appears that he had been having multiple episodes of hypotension over the past few weeks and months, therefore his blood pressure medications have been slowly weaned, to the point where he was only on lisinopril 5 mg nightly. And he did not even take that prior to his colonoscopy, therefore he did not have any medications on the day of his procedure. That evening he was started back on lisinopril 5 mg, and then this morning I gave him 10 mg of amlodipine, and his blood pressures have been quite good throughout the day. Nevertheless, for fear that he may once again to have hypertensive episodes I will send him home on lisinopril 5 mg at night, and then amlodipine 5 mg in the morning, and recommend that he have close follow-up with his primary care provider next week. Both his and his daughter were in the room and provided some of the history as well. PHYSICAL EXAMINATION ON DISCHARGE: GENERAL: Awake, alert, oriented. He is in no acute distress at this time. CARDIOVASCULAR EXAMINATION: Regular rate and rhythm, with no rubs, gallops, or murmur. RESPIRATORY EXAMINATION: Clear to auscultation bilaterally with no wheezes, rales, or rhonchi. ABDOMINAL EXAMINATION: Soft, nontender, nondistended. Bowel sounds present. EXTREMITIES: No clubbing or edema noted. 2+ pulses in the radial bilaterally. DISPOSITION: Home DISCHARGE INSTRUCTIONS: Follow-up with primary care provider within the next 7-10 days. Diet and activity as tolerated. If symptoms return, or if you experience worsening of your symptoms, please call your doctor or return to the emergency department. Vital Signs/I&Os Vital Signs Date Time Temp Pulse Resp B/P (MAP) Pulse Ox O2 Delivery O2 Flow Rate FiO2 09/21/20 12:00 97.1 87 17 160/68 (98) 95 Room Air I&O- Last 24 Hours up to 6 AM 09/21/20 06:00 Intake Total 740 ml Output Total 925 ml Balance -185 ml Laboratory Data Labs 24H Laboratory Tests 2 09/20/20 19:50: Troponin I 0.02 09/21/20 08:22: Nucleated Red Blood Cells % (auto) 0.0, Anion Gap 8, Glomerular Filtration Rate > 60.0, Calcium Level 8.6L CBC/BMP Laboratory Tests 09/21/20 08:22 Discharge Medications Scheduled Amlodipine Besylate (Amlodipine Besylate) 5 Mg Tablet, 1 TAB PO DAILY Apixaban (Eliquis) 5 Mg Tablet, 5 MG PO BID, (Reported) Bisacodyl (Dulcolax) 5 Mg Tablet.dr, 5 MG PO PRN, (Reported) Cholecalciferol (Vitamin D3) (Vitamin D3) 125 Mcg Capsule, 125 MCG PO DAILY, (Reported) Lansoprazole (Lansoprazole) 30 Mg Capsule.dr, 30 MG PO BID, (Reported) Lisinopril (Lisinopril) 5 Mg Tablet, 5 MG PO QHS Magnesium Oxide (Magnesium) 250 Mg Tablet, 250 MG PO DAILY, (Reported) Simvastatin (Simvastatin) 10 Mg Tab, 10 MG PO QHS, (Reported) Vitamin B Complex (Vitamin B Complex) 1 Each Tablet, 1 TAB PO DAILY, (Reported) Scheduled PRN Polyethylene Glycol 3350 (Miralax) 119 Gm Powder, 17 GM PO DAILY PRN for CONSTIPATION, (Reported) Allergies Coded Allergies: ENVIROMENTAL (Verified Allergy, Unknown, 09/11/20) DAWSON SUAREZ DO Sep 21, 2020 17:41
--- NOTE | 2020-09-22 18:34 | ECGEPIP ---
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
== END 2020-09-21 16:50 | disposition home or self-care (01) ==
LOC: M OPP 10:26 → M PCU 15:25
PROVIDERS: ADMIT General Practice; ATTEND Surgery
DX: I16.0 Hypertensive urgency (principal); K59.00 Constipation, unspecified; Z86.010 Personal history of colon polyps; K63.5 Polyp of colon; D64.9 Anemia, unspecified; E78.5 Hyperlipidemia, unspecified; F03.90 Unspecified dementia, unspecified severity, without behavioral disturbance, psychotic disturbance, mood disturbance, and anxiety; G47.33 Obstructive sleep apnea (adult) (pediatric); Z79.01 Long term (current) use of anticoagulants; N18.30 Chronic kidney disease, stage 3 unspecified; Z79.899 Other long term (current) drug therapy; I25.10 Atherosclerotic heart disease of native coronary artery without angina pectoris; I10 Essential (primary) hypertension; K57.90 Diverticulosis of intestine, part unspecified, without perforation or abscess without bleeding; K21.9 Gastro-esophageal reflux disease without esophagitis; I48.91 Unspecified atrial fibrillation; N40.0 Benign prostatic hyperplasia without lower urinary tract symptoms
CPT/HCPCS: 36415; 45388; 70450; 71045; 71275; 80048; 84484; 85027; 93005; 93970; 96361; 96374; 96376; 97161; 97165; G0378; J0360; Q9967

== ENCOUNTER → 2021-01-16 | Outpatient (REF) | payer MEDICARE, BC ==
[~2021-01-16] MED LIST changes: -LISI2.5T2 PO; +LISI2.5T9 PO; -NS 1,000 ML IV ONE
== END ==
LOC: M LAB REF 13:02
PROVIDERS: ATTEND Nurse Practitioner Family
DX: N18.31 Chronic kidney disease, stage 3a (principal)

== ENCOUNTER → 2021-11-10 | Outpatient (CLI) | payer MEDICARE, BC ==
[~2021-11-10] MED LIST changes: +COLA100C5 PO; +FOLI1TAB11; +LINZ145C; +LINZ290C; -LISI-898 PO; +LISI2.5T9; +LISI5TAB11 PO; -MONT10TA10 PO; +MONT10TA97 PO; +ZIPR20CA21
== END ==
LOC: M LABSMTC 10:49
PROVIDERS: ATTEND Anesthesiology
DX: Z01.818 Encounter for other preprocedural examination (principal); Z11.52 Encounter for screening for COVID-19

== ENCOUNTER 2021-11-14 10:17 | Day surgery (SDC) | payer MEDICARE, BC ==
[~2021-11-14] VITALS: Ht 175.3 cm; Wt 84.8 kg
[~2021-11-14 10:17] MED LIST changes: +NS 1,000 ML IV ONE
[2021-11-14] MEDS ORDERED: propofoL 200 MG/20 ML VIAL As Ordered ONE (10:58)
[2021-11-14] MEDS ORDERED: LIDOCAINE 2% 100MG/5ML SDV (FOR ANES.) As Ordered ONE (10:58)
[2021-11-14 12:25] VITALS: BP 179/80
== END 2021-11-14 12:47 | disposition home or self-care (01) ==
LOC: M OPP 10:17
PROVIDERS: ATTEND Surgery
DX: Z12.11 Encounter for screening for malignant neoplasm of colon (principal); Z86.010 Personal history of colon polyps; D12.2 Benign neoplasm of ascending colon; K57.30 Diverticulosis of large intestine without perforation or abscess without bleeding; Z79.02 Long term (current) use of antithrombotics/antiplatelets; Z79.899 Other long term (current) drug therapy; Z99.89 Dependence on other enabling machines and devices; Z88.8 Allergy status to other drugs, medicaments and biological substances; I48.91 Unspecified atrial fibrillation; N18.30 Chronic kidney disease, stage 3 unspecified; G47.30 Sleep apnea, unspecified; I12.9 Hypertensive chronic kidney disease with stage 1 through stage 4 chronic kidney disease, or unspecified chronic kidney disease; E78.5 Hyperlipidemia, unspecified; Z86.72 Personal history of thrombophlebitis; Z87.19 Personal history of other diseases of the digestive system; Z85.828 Personal history of other malignant neoplasm of skin; Z90.5 Acquired absence of kidney

== ENCOUNTER 2022-01-28 20:52 | Emergency (ER) | payer MEDICARE, BC ==
[~2022-01-28] VITALS: Ht 152.4 cm; Wt 85.8 kg
[~2022-01-28 20:52] MED LIST changes: -NS 1,000 ML IV ONE
[2022-01-28 22:07] LABS: BASO # 0.1 10^3/uL (0.0-0.2); BASO % 1.1 % (0.0-1.0); EOS # 0.2 10^3/uL (0.0-0.5); LYMPH # 0.9 10^3/uL (1.5-5.0); LYMPH % 13.2 % (24.0-44.0); MEAN CORPUSCULAR HEMOGLOBIN 33.6 pg (27.0-33.0); MEAN CORPUSCULAR HGB CONC 34.2 g/dl (32.0-36.5); MEAN CORPUSCULAR VOLUME 98.2 fl (80.0-96.0); MONO # 0.9 10^3/uL (0.0-0.8); MONO % 14.2 % (2.0-8.0); NEUTROPHILS # 4.5 10^3/uL (1.5-8.5); PLATELET COUNT, AUTOMATED 183 10^3/uL (150-450); RED BLOOD COUNT 3.87 10^6/uL (4.30-6.10); WHITE BLOOD COUNT 6.6 10^3/uL (4.0-10.0)
[2022-01-28 22:18] LABS: INR 1.15
[2022-01-28 22:24] LABS: CHLORIDE LEVEL 100 MMOL/L (98-107); POTASSIUM SERUM 4.3 MMOL/L (3.5-5.1); SODIUM LEVEL 133 MMOL/L (136-145)
[2022-01-28 22:25] LABS: ALBUMIN 3.5 G/DL (3.2-5.2); CARBON DIOXIDE LEVEL 26 MMOL/L (20-31)
[2022-01-28 22:30] LABS: BLOOD UREA NITROGEN 26 MG/DL (9-23); CALCIUM LEVEL 7.7 MG/DL (8.3-10.6); GLUCOSE, FASTING 103 MG/DL (74-106); LIPASE 24 U/L (12-53)
[2022-01-28 22:31] LABS: ALKALINE PHOSPHATASE 103 U/L (46-116)
[2022-01-28 22:32] LABS: ALT/SGPT 16 U/L (7.0-40); AST/SGOT 21 U/L (<34); BILIRUBIN,DIRECT 0.2 MG/DL (<0.4); BILIRUBIN,TOTAL 0.5 MG/DL (0.3-1.2); CK-MB VALUE MASS 1.7 NG/ML (<3.6); CPK CREATINE PHOSPHOKINASE 50 U/L (46-171); CREATININE FOR GFR 1.11 MG/DL (0.70-1.30); GLOMERULAR FILTRATION RATE > 60.0 (>35); TOTAL PROTEIN 5.9 G/DL (5.7-8.2)
[2022-01-28 22:36] LABS: THYROID STIMULATING HORMONE 1.633 uIU/ML (0.55-4.78)
[2022-01-28 23:50] LABS: CK-MB VALUE MASS < 1.0 NG/ML (<3.6)
[2022-01-28 23:51] LABS: CPK CREATINE PHOSPHOKINASE 51 U/L (46-171); MB/CK RELATIVE INDEX 1.96 (< OR =4)
[2022-01-29] MEDS ORDERED: IPRATROPIUM 0.5MG/ALBUTEROL 2.5MG INH SOL UD 3ML (DUONEB) NEB ONE (00:30)
[2022-01-29] MEDS ORDERED: ALBUTEROL SULFATE 2.5 MG/0.5 ML INH NEB SOLN INH ONE (00:30)
[2022-01-29] MEDS ORDERED: ISOVUE-370 76% 100ML VIAL As Ordered ONE (00:42)
[2022-01-29] MEDS ORDERED: predniSONE 20 MG TAB PO ONE (02:45)
[2022-01-29] MEDS ORDERED: PRED20TA PO (02:45)
[2022-01-29 03:01] VITALS: BP 159/69
== END 2022-01-29 03:21 | disposition home or self-care (01) ==
LOC: M ED 20:52
DX: R07.9 Chest pain, unspecified (principal); I10 Essential (primary) hypertension; N18.30 Chronic kidney disease, stage 3 unspecified; E78.5 Hyperlipidemia, unspecified; Z86.79 Personal history of other diseases of the circulatory system; Z86.73 Personal history of transient ischemic attack (TIA), and cerebral infarction without residual deficits; Z88.8 Allergy status to other drugs, medicaments and biological substances; Z79.01 Long term (current) use of anticoagulants; Z79.811 Long term (current) use of aromatase inhibitors; Z79.899 Other long term (current) drug therapy
CPT/HCPCS: 71045; 71275; 80048; 80076; 82550; 82553; 83690; 83880; 84443; 84484; 85025; 85610; 87486; 87581; 87633; 87798; 93005; 93041; 93971; 94640; 94760; 99285; J7512; Q9967

== ENCOUNTER → 2022-02-27 | Outpatient (REF) | payer MEDICARE, BC ==
[~2022-02-27] MED LIST changes: +PRED20TA PO
[2022-02-27 18:19] LABS: PERCENT SATURATION 28.8 % (19.7-50.0)
== END ==
LOC: M LAB REF 16:49
PROVIDERS: ATTEND Internal Medicine
DX: D64.9 Anemia, unspecified (principal)

== ENCOUNTER → 2022-06-18 | Outpatient (CLI) | payer MEDICARE, BC ==
[~2022-06-18] MED LIST changes: +GABA-1171 PO; +LANS30CA PO; +SENN8.6T58 PO
== END ==
LOC: M PLAIMG 12:37
PROVIDERS: ATTEND Nurse Practitioner Family
DX: R10.9 Unspecified abdominal pain (principal)

== ENCOUNTER 2022-06-19 07:16 | Emergency (ER) | payer MEDICARE, BC ==
[~2022-06-19] VITALS: Ht 172.7 cm; Wt 86.4 kg
[~2022-06-19 07:16] MED LIST changes: -GABA-1171 PO; -LANS30CA PO; -SENN8.6T58 PO
[2022-06-19 08:07] LABS: BASO # 0.1 10^3/uL (0.0-0.2); BASO % 0.8 % (0.0-1.0); EOS # 0.3 10^3/uL (0.0-0.5); EOS % 3.6 % (0.0-3.0); HEMATOCRIT 39.6 % (42.0-52.0); LYMPH # 0.8 10^3/uL (1.5-5.0); LYMPH % 11.3 % (24.0-44.0); MEAN CORPUSCULAR HEMOGLOBIN 32.5 pg (27.0-33.0); MEAN CORPUSCULAR HGB CONC 32.8 g/dl (32.0-36.5); MONO # 0.7 10^3/uL (0.0-0.8); MONO % 10.3 % (2.0-8.0); NEUTROPHILS # 5.2 10^3/uL (1.5-8.5); NEUTROPHILS % 73.3 % (36.0-66.0); PLATELET COUNT, AUTOMATED 232 10^3/uL (150-450); WHITE BLOOD COUNT 7.2 10^3/uL (4.0-10.0)
[2022-06-19 08:32] LABS: CK-MB VALUE MASS 1.3 NG/ML (<3.6)
[2022-06-19 08:34] LABS: BLOOD UREA NITROGEN 20 MG/DL (9-23); CARBON DIOXIDE LEVEL 30 MMOL/L (20-31); CHLORIDE LEVEL 97 MMOL/L (98-107); CREATININE FOR GFR 1.16 MG/DL (0.70-1.30); GLOMERULAR FILTRATION RATE > 60.0 (>35); GLUCOSE, FASTING 105 MG/DL (74-106); MB/CK RELATIVE INDEX 3.61 (< OR =4); POTASSIUM SERUM 4.9 MMOL/L (3.5-5.1); SODIUM LEVEL 131 MMOL/L (136-145)
[2022-06-19 10:08] LABS: ALBUMIN 3.6 G/DL (3.2-5.2); ALKALINE PHOSPHATASE 155 U/L (46-116); ALT/SGPT 13 U/L (7.0-40); AST/SGOT 25 U/L (<34); BILIRUBIN,DIRECT 0.2 MG/DL (<0.4); BILIRUBIN,TOTAL 0.6 MG/DL (0.3-1.2); TOTAL PROTEIN 6.7 G/DL (5.7-8.2)
[2022-06-19 10:34] LABS: INR 1.18; PROTHROMBIN TIME 15.2 SECONDS (12.5-14.5)
[2022-06-19 10:35] LABS: PARTIAL THROMBOPLASTIN TIME 35.3 SECONDS (24.8-34.2)
[2022-06-19] MEDS ORDERED: ISOVUE-370 76% 100ML VIAL As Ordered ONE (13:01)
[2022-06-19] MEDS ORDERED: MORPHINE 2 MG/ML 1ML VIAL IV PRN (13:40)
[2022-06-19] MEDS ORDERED: PERCOCET 5MG/325MG TAB PO ONE (15:20)
[2022-06-19] MEDS ORDERED: GABAPENTIN 300 MG CAP PO ONE (15:20)
[2022-06-19] MEDS ORDERED: hydrALAZINE 20MG/ML 1ML VIAL IV ONE (15:20)
[2022-06-19] MEDS ORDERED: LANS30CA PO (16:04)
[2022-06-19 16:09] VITALS: BP 184/78
[2022-06-19] MEDS ORDERED: GABA-1171 PO (16:59)
[2022-06-19] MEDS ORDERED: SENN8.6T58 PO (17:03)
[2022-06-19 17:30] VITALS: BP 122/65
== END 2022-06-19 18:05 | disposition home or self-care (01) ==
LOC: M ED 07:16
DX: R07.9 Chest pain, unspecified (principal); M54.50 Low back pain, unspecified; I48.91 Unspecified atrial fibrillation; I25.2 Old myocardial infarction; I10 Essential (primary) hypertension; E78.5 Hyperlipidemia, unspecified; G47.33 Obstructive sleep apnea (adult) (pediatric); N18.30 Chronic kidney disease, stage 3 unspecified; C85.90 Non-Hodgkin lymphoma, unspecified, unspecified site; Z86.79 Personal history of other diseases of the circulatory system; Z79.01 Long term (current) use of anticoagulants; Z88.8 Allergy status to other drugs, medicaments and biological substances; Z79.811 Long term (current) use of aromatase inhibitors; Z79.891 Long term (current) use of opiate analgesic; Z79.899 Other long term (current) drug therapy
CPT/HCPCS: 71045; 71275; 74175; 80048; 80076; 82550; 82553; 84484; 85025; 85610; 85730; 93005; 93041; 94760; 96374; 96375; 99285; J0360; Q9967

== ENCOUNTER → 2022-06-23 | Outpatient (CLI) | payer MEDICARE, BC ==
[~2022-06-23] MED LIST changes: +GABA-1171 PO; +LANS30CA PO; +SENN8.6T58 PO
== END ==
LOC: M WUC 14:35
PROVIDERS: ATTEND Internal Medicine
DX: M51.36 Other intervertebral disc degeneration, lumbar region (principal)

== ENCOUNTER 2022-07-07 07:51 | Inpatient (IN) | payer MEDICARE, BC ==
[~2022-07-07] VITALS: Ht 172.7 cm; Wt 88.1 kg
[~2022-07-07 07:51] MED LIST changes: -LISI2.5T9
[2022-07-07] MEDS ORDERED: ASPIRIN 81MG CHEW TABLET PO ONE (08:25)
[2022-07-07] MEDS ORDERED: fentaNYL 100 MCG/2 ML INJECTION IV PRN (08:25)
[2022-07-07] MEDS ORDERED: NITROGLYCERIN 0.3MG SUBL TAB SL PRN (08:25)
[2022-07-07] MEDS ORDERED: NITROGLYCERIN 0.4MG SUBL TABLET As Ordered ONE (08:33)
[2022-07-07] MEDS: NITROGLYCERIN 0.4MG SUBL TABLET SL PRN ×2 (08:40→08:54)
[2022-07-07] MEDS ORDERED: GI COCKTAIL 50ML BTL(HYOSCYAMINE/MAALOX/LIDOCAINE VISCOUS)(1:3:1) PO ONE (08:55)
[2022-07-07] MEDS ORDERED: ISOVUE-370 76% 100ML VIAL As Ordered ONE (09:07)
[2022-07-07 09:21] LABS: LIPASE 28 U/L (12-53)
[2022-07-07 09:23] LABS: ALBUMIN 3.5 G/DL (3.2-5.2); ALKALINE PHOSPHATASE 159 U/L (46-116); ALT/SGPT 16 U/L (7.0-40); AST/SGOT 25 U/L (<34); BILIRUBIN,DIRECT 0.2 MG/DL (<0.4); BILIRUBIN,TOTAL 0.6 MG/DL (0.3-1.2); TOTAL PROTEIN 6.6 G/DL (5.7-8.2)
[2022-07-07 09:32] LABS: INR 1.11; PROTHROMBIN TIME 14.5 SECONDS (12.5-14.5)
[2022-07-07 09:34] LABS: PARTIAL THROMBOPLASTIN TIME 33.7 SECONDS (24.8-34.2)
[2022-07-07] MEDS ORDERED: NITROGLYCERIN 2% OINT 1 GM *U/D* PKT TOP ONE (09:35)
[2022-07-07 09:42] LABS: BASO # 0.1 10^3/uL (0.0-0.2); BASO % 1.3 % (0.0-1.0); EOS # 0.3 10^3/uL (0.0-0.5); EOS % 4.2 % (0.0-3.0); HEMATOCRIT 39.4 % (42.0-52.0); HEMOGLOBIN 13.3 g/dl (13.5-17.5); LYMPH # 0.8 10^3/uL (1.5-5.0); LYMPH % 12.5 % (24.0-44.0); MEAN CORPUSCULAR HGB CONC 33.8 g/dl (32.0-36.5); MEAN CORPUSCULAR VOLUME 97.8 fl (80.0-96.0); MONO # 0.6 10^3/uL (0.0-0.8); MONO % 10.1 % (2.0-8.0); NEUTROPHILS # 4.4 10^3/uL (1.5-8.5); NEUTROPHILS % 71.3 % (36.0-66.0); PLATELET COUNT, AUTOMATED 210 10^3/uL (150-450); RED BLOOD COUNT 4.03 10^6/uL (4.30-6.10); WHITE BLOOD COUNT 6.2 10^3/uL (4.0-10.0)
[2022-07-07 09:44] LABS: CK-MB VALUE MASS < 1.0 NG/ML (<3.6)
[2022-07-07 09:46] LABS: BLOOD UREA NITROGEN 20 MG/DL (9-23); CALCIUM LEVEL 9.2 MG/DL (8.3-10.6); CARBON DIOXIDE LEVEL 27 MMOL/L (20-31); CHLORIDE LEVEL 96 MMOL/L (98-107); CREATININE FOR GFR 1.23 MG/DL (0.70-1.30); GLOMERULAR FILTRATION RATE 59.7 (>35); GLUCOSE, FASTING 102 MG/DL (74-106); POTASSIUM SERUM 4.7 MMOL/L (3.5-5.1); SODIUM LEVEL 130 MMOL/L (136-145)
[2022-07-07 09:51] LABS: FREE T4 1.17 NG/DL (0.89-1.76)
[2022-07-07 09:52] LABS: CPK CREATINE PHOSPHOKINASE 39 U/L (46-171); MB/CK RELATIVE INDEX 2.56 (< OR =4); THYROID STIMULATING HORMONE 2.119 uIU/ML (0.55-4.78)
[2022-07-07] MEDS ORDERED: FUROSEMIDE 20MG/2ML VIAL IV ONE (10:10)
[2022-07-07 10:12] LABS: CK-MB VALUE MASS < 1.0 NG/ML (<3.6)
[2022-07-07 10:14] LABS: CPK CREATINE PHOSPHOKINASE 37 U/L (46-171)
[2022-07-07 10:14] LABS: RSV AMPLIFICATION NEGATIVE (NEGATIVE)
[2022-07-07 10:32] LABS: ABG BASE EXCESS -1.1 (-2.0-2.0); ABG HCO3 23.6 MMOL/L (22.0-26.0); ABG O2 SATURATION 98.4 % (95.0-99.0); ABG PARTIAL PRESSURE CO2 39.5 mmHg (35.0-45.0); ABG PARTIAL PRESSURE O2 134.4 mmHg (75.0-100.0); ABG STANDARD HCO3 23.6 MMOL/L. (22.0-26.0); ABG TOTAL CO2 24.8 MMOL/L (23.0-31.0); ABG pH (ARTERIAL) 7.394 UNITS (7.350-7.450)
[2022-07-07] MEDS ORDERED: NITROGLYCERIN 0.4MG SUBL TABLET SL PRN (11:55)
[2022-07-07] MEDS ORDERED: ACETAMINOPHEN TAB 650MG DOSE (2X325MG) PO PRN (11:55)
[2022-07-07] MEDS ORDERED: hydrALAZINE 20MG/ML 1ML VIAL IV PRN (12:00)
[2022-07-07] MEDS ORDERED: MORPHINE 2 MG/ML 1ML VIAL IV PRN (12:20)
[2022-07-07] MEDS ORDERED: GABA-1171 PO ×2 (12:40)
[2022-07-07] MEDS ORDERED: AMLO1TAB24 PO (12:40)
[2022-07-07] MEDS ORDERED: LINZ290C PO (12:40)
[2022-07-07] MEDS ORDERED: SENN-23 PO (12:40)
[2022-07-07] MEDS ORDERED: MIRA3350 PO (12:41)
[2022-07-07] MEDS ORDERED: HOME MED LIST COMPLETE! XX SCH (12:45)
[2022-07-07 13:11] LABS: CHOLESTEROL LEVEL 133 MG/DL (<200); CHOLESTEROL RISK RATIO 2.41 (<5); TRIGLYCERIDES LEVEL 80 MG/DL (<150)
[2022-07-07] MEDS: GABAPENTIN 100 MG CAP PO SCH (14:21)
[2022-07-07 16:50] VITALS: BP 155/73
[2022-07-07 16:50] LABS: OSMOLALITY URINE 281 MOSM/KG (50-1400)
[2022-07-07 17:11] LABS: SODIUM,RANDOM URINE 68 MMOL/L
[2022-07-07] MEDS ORDERED: SENOKOT S TAB PO SCH (21:00)
[2022-07-07] MEDS ORDERED: GABAPENTIN 100 MG CAP PO SCH (21:00)
[2022-07-07] MEDS ORDERED: LISINOPRIL *2.5 MG* TAB PO SCH (21:00)
[2022-07-07] MEDS: OMEPRAZOLE 20MG CAP PO SCH (21:00)
[2022-07-07] MEDS ORDERED: SIMVASTATIN 10 MG TAB PO SCH (21:00)
[2022-07-07] MEDS ORDERED: FLEET OIL RETENTION ENEMA PR PRN (21:20)
[2022-07-07 21:40] VITALS: BP 179/85
[2022-07-07] MEDS: APIXABAN 5 MG TAB (ELIQUIS) PO SCH (23:22)
[2022-07-07] MEDS ORDERED: POLYETHYLENE GLYCOL (MIRALAX) 238GM BOTTLE PO ONE (23:25)
[2022-07-07] MEDS ORDERED: BISACODYL 10MG SUPP PR ONE (23:25)
[2022-07-08] VITALS (7 sets, daily range): BP systolic 118–162; BP diastolic 61–76
[2022-07-08 05:53] LABS: HEMATOCRIT 38.5 % (42.0-52.0); HEMOGLOBIN 12.9 g/dl (13.5-17.5); MEAN CORPUSCULAR HEMOGLOBIN 32.2 pg (27.0-33.0); MEAN CORPUSCULAR HGB CONC 33.5 g/dl (32.0-36.5); PLATELET COUNT, AUTOMATED 224 10^3/uL (150-450); RED BLOOD COUNT 4.01 10^6/uL (4.30-6.10); WHITE BLOOD COUNT 6.9 10^3/uL (4.0-10.0)
[2022-07-08 06:16] LABS: ALBUMIN 3.7 G/DL (3.2-5.2); BILIRUBIN,TOTAL 0.5 MG/DL (0.3-1.2); CALCIUM LEVEL 9.4 MG/DL (8.3-10.6); CREATININE FOR GFR 1.28 MG/DL (0.70-1.30); TOTAL PROTEIN 6.6 G/DL (5.7-8.2)
[2022-07-08] MEDS ORDERED: ASPIRIN 81MG ENTERIC TABLET PO SCH (09:00)
[2022-07-08] MEDS ORDERED: MIRALAX *UNIT DOSE* 17GM PACKET PO SCH (09:00)
[2022-07-08] MEDS ORDERED: SENNA 8.6 MG TAB (SENOKOT) PO SCH (09:00)
[2022-07-08] MEDS ORDERED: amLODIPine 5 MG TAB PO SCH (09:00)
[2022-07-08] MEDS: OMEPRAZOLE 20MG CAP PO SCH (10:01)
[2022-07-08] MEDS: GABAPENTIN 100 MG CAP PO SCH (10:02)
[2022-07-08] MEDS: APIXABAN 5 MG TAB (ELIQUIS) PO SCH (10:02)
[2022-07-08] MEDS ORDERED: SENOKOT S TAB PO SCH (21:00)
== END 2022-07-08 18:15 | disposition home or self-care (01) | DRG 291 ==
LOC: M ED 07:51 → M ED INP 11:53 → ENRESERV 15:19 → M PCU 16:46
PROVIDERS: ADMIT Internal Medicine; ATTEND Family Medicine
DX: I13.0 Hypertensive heart and chronic kidney disease with heart failure and stage 1 through stage 4 chronic kidney disease, or unspecified chronic kidney disease (principal); J96.01 Acute respiratory failure with hypoxia; I50.33 Acute on chronic diastolic (congestive) heart failure; E87.1 Hypo-osmolality and hyponatremia; I48.91 Unspecified atrial fibrillation; K21.9 Gastro-esophageal reflux disease without esophagitis; I16.0 Hypertensive urgency; F03.90 Unspecified dementia, unspecified severity, without behavioral disturbance, psychotic disturbance, mood disturbance, and anxiety; N18.30 Chronic kidney disease, stage 3 unspecified; E78.5 Hyperlipidemia, unspecified; G47.33 Obstructive sleep apnea (adult) (pediatric); Z88.8 Allergy status to other drugs, medicaments and biological substances; Z79.899 Other long term (current) drug therapy; Z86.73 Personal history of transient ischemic attack (TIA), and cerebral infarction without residual deficits; N40.0 Benign prostatic hyperplasia without lower urinary tract symptoms; Z95.2 Presence of prosthetic heart valve; Z96.651 Presence of right artificial knee joint

== ENCOUNTER 2022-08-13 17:39 | Emergency (ER) | payer MEDICARE, BC ==
[~2022-08-13] VITALS: Ht 170.2 cm; Wt 88.6 kg
[~2022-08-13 17:39] MED LIST changes: +FLUO0.0119; +LINZ290C PO; +NITR0.4S14; +SENN-23 PO
[2022-08-13] MEDS ORDERED: NITROGLYCERIN 2% OINT 1 GM *U/D* PKT TOP ONE (18:10)
[2022-08-13 18:17] LABS: BASO # 0.1 10^3/uL (0.0-0.2); BASO % 1.1 % (0.0-1.0); EOS # 0.3 10^3/uL (0.0-0.5); EOS % 4.2 % (0.0-3.0); HEMATOCRIT 38.9 % (42.0-52.0); LYMPH # 1.1 10^3/uL (1.5-5.0); LYMPH % 17.2 % (24.0-44.0); MEAN CORPUSCULAR HEMOGLOBIN 32.3 pg (27.0-33.0); MEAN CORPUSCULAR HGB CONC 33.4 g/dl (32.0-36.5); MEAN CORPUSCULAR VOLUME 96.8 fl (80.0-96.0); MONO # 0.9 10^3/uL (0.0-0.8); MONO % 14.5 % (2.0-8.0); NEUTROPHILS # 3.8 10^3/uL (1.5-8.5); NEUTROPHILS % 62.3 % (36.0-66.0); PLATELET COUNT, AUTOMATED 210 10^3/uL (150-450); RED BLOOD COUNT 4.02 10^6/uL (4.30-6.10); WHITE BLOOD COUNT 6.1 10^3/uL (4.0-10.0)
[2022-08-13 18:30] VITALS: BP 200/88
[2022-08-13 18:31] LABS: INR 1.16
[2022-08-13 18:45] LABS: LIPASE 27 U/L (12-53)
[2022-08-13 18:48] LABS: ALKALINE PHOSPHATASE 153 U/L (46-116); ALT/SGPT 19 U/L (7.0-40); AST/SGOT 20 U/L (<34); BILIRUBIN,DIRECT 0.3 MG/DL (<0.4); BILIRUBIN,TOTAL 0.8 MG/DL (0.3-1.2); BLOOD UREA NITROGEN 23 MG/DL (9-23); CALCIUM LEVEL 9.1 MG/DL (8.3-10.6); CARBON DIOXIDE LEVEL 25 MMOL/L (20-31); CHLORIDE LEVEL 98 MMOL/L (98-107); CK-MB VALUE MASS 1.5 NG/ML (<3.6); CPK CREATINE PHOSPHOKINASE 81 U/L (46-171); CREATININE FOR GFR 1.18 MG/DL (0.70-1.30); GLOMERULAR FILTRATION RATE > 60.0 (>35); GLUCOSE, FASTING 99 MG/DL (74-106); MB/CK RELATIVE INDEX 1.85 (< OR =4); SODIUM LEVEL 130 MMOL/L (136-145); TOTAL PROTEIN 6.8 G/DL (5.7-8.2)
[2022-08-13 18:49] LABS: THYROID STIMULATING HORMONE 1.767 uIU/ML (0.55-4.78)
[2022-08-13 18:50] LABS: FREE T4 1.24 NG/DL (0.89-1.76)
[2022-08-13] MEDS ORDERED: ISOVUE-370 76% 100ML VIAL As Ordered ONE (19:07)
[2022-08-13 19:37] LABS: CK-MB VALUE MASS 1.5 NG/ML (<3.6); MB/CK RELATIVE INDEX 2.2 (< OR =4)
[2022-08-13 20:30] VITALS: BP 163/95
[2022-08-13] MEDS ORDERED: KETOROLAC 30 MG/ML 1ML VIAL IV ONE (20:55)
[2022-08-13 21:27] LABS: CK-MB VALUE MASS 1.2 NG/ML (<3.6)
[2022-08-13 21:28] LABS: MB/CK RELATIVE INDEX 1.46 (< OR =4)
[2022-08-13] MEDS ORDERED: KETO10TAB PO (21:41)
[2022-08-13 22:09] VITALS: TEMP 98.2; O2SAT 93
== END 2022-08-13 22:30 | disposition home or self-care (01) ==
LOC: M ED 17:39
DX: S22.030A Wedge compression fracture of third thoracic vertebra, initial encounter for closed fracture (principal); R07.9 Chest pain, unspecified; I48.91 Unspecified atrial fibrillation; I10 Essential (primary) hypertension; E78.5 Hyperlipidemia, unspecified; F10.10 Alcohol abuse, uncomplicated; N40.1 Benign prostatic hyperplasia with lower urinary tract symptoms; Z86.79 Personal history of other diseases of the circulatory system; Z88.8 Allergy status to other drugs, medicaments and biological substances; Z79.01 Long term (current) use of anticoagulants; Z79.811 Long term (current) use of aromatase inhibitors; Z79.899 Other long term (current) drug therapy
CPT/HCPCS: 71045; 71275; 80048; 80076; 82550; 82553; 83690; 83880; 84439; 84443; 84484; 85025; 85610; 85730; 87040; 87486; 87581; 87633; 87798; 93005; 93041; 94760; 96374; 99285; J1885; Q9967

== ENCOUNTER → 2022-10-24 | Outpatient (CLI) | payer MEDICARE, BC ==
[~2022-10-24] MED LIST changes: +KETO10TAB PO
[2022-10-24 12:44] LABS: HEMOGLOBIN 12.8 g/dl (13.5-17.5); MEAN CORPUSCULAR HEMOGLOBIN 32.2 pg (27.0-33.0); MEAN CORPUSCULAR HGB CONC 33.7 g/dl (32.0-36.5); MEAN CORPUSCULAR VOLUME 95.7 fl (80.0-96.0); PLATELET COUNT, AUTOMATED 209 10^3/uL (150-450); RED BLOOD COUNT 3.97 10^6/uL (4.30-6.10); WHITE BLOOD COUNT 6.4 10^3/uL (4.0-10.0)
[2022-10-24 13:03] LABS: CREATININE FOR GFR 1.31 MG/DL (0.70-1.30); GLOMERULAR FILTRATION RATE 55.5 (>35); POTASSIUM SERUM 4.8 MMOL/L (3.5-5.1)
== END ==
LOC: M LAB 11:48
PROVIDERS: ATTEND Nurse Practitioner Family
DX: R06.09 Other forms of dyspnea (principal)

== ENCOUNTER 2022-12-24 11:01 | Observation (INO) | payer MEDICARE, BC ==
[~2022-12-24] VITALS: Ht 172.7 cm; Wt 88.9 kg
[2022-12-24] VITALS (10 sets, daily range): BP systolic 155–198; BP diastolic 73–93; TEMP 96.2–97.3; O2SAT 89–98
[~2022-12-24 11:01] MED LIST changes: -NITR0.4S14; +NITR0.4S14 SL
[2022-12-24] MEDS ORDERED: FURO20TA2 PO (11:23)
[2022-12-24 11:46] LABS: VENOUS BASE EXCESS -0.6 (-2.0-2.0); VENOUS HCO3 24.6 MMOL/L (23.0-27.0); VENOUS O2 SATURATION 70.9 % (60.0-80.0); VENOUS PARTIAL PRESSURE CO2 42.4 mmHg (38.0-50.0); VENOUS PARTIAL PRESSURE O2 37.6 mmHg (30.0-50.0); VENOUS PH 7.381 UNITS (7.330-7.430); VENOUS STANDARD HCO3 23.4 MMOL/L; VENOUS TOTAL CO2 25.9 MMOL/L (24.0-28.0)
[2022-12-24 12:03] LABS: BASO # 0.1 10^3/uL (0.0-0.2); BASO % 0.7 % (0.0-1.0); EOS # 0.2 10^3/uL (0.0-0.5); EOS % 2.4 % (0.0-3.0); HEMATOCRIT 35.8 % (42.0-52.0); HEMOGLOBIN 12.4 g/dl (13.5-17.5); LYMPH # 0.9 10^3/uL (1.5-5.0); LYMPH % 11.9 % (24.0-44.0); MEAN CORPUSCULAR HEMOGLOBIN 33.7 pg (27.0-33.0); MEAN CORPUSCULAR HGB CONC 34.6 g/dl (32.0-36.5); MEAN CORPUSCULAR VOLUME 97.3 fl (80.0-96.0); MONO # 0.8 10^3/uL (0.0-0.8); MONO % 10.4 % (2.0-8.0); NEUTROPHILS # 5.5 10^3/uL (1.5-8.5); NEUTROPHILS % 73.5 % (36.0-66.0); PLATELET COUNT, AUTOMATED 193 10^3/uL (150-450); RED BLOOD COUNT 3.68 10^6/uL (4.30-6.10); WHITE BLOOD COUNT 7.5 10^3/uL (4.0-10.0)
[2022-12-24 13:10] LABS: ALBUMIN 3.6 G/DL (3.2-5.2); ALKALINE PHOSPHATASE 129 U/L (46-116); ALT/SGPT 15 U/L (7.0-40); AST/SGOT 21 U/L (<34); BILIRUBIN,DIRECT 0.3 MG/DL (<0.4); BILIRUBIN,TOTAL 0.7 MG/DL (0.3-1.2); BLOOD UREA NITROGEN 23 MG/DL (9-23); CALCIUM LEVEL 8.9 MG/DL (8.3-10.6); CARBON DIOXIDE LEVEL 30 MMOL/L (20-31); CHLORIDE LEVEL 99 MMOL/L (98-107); CREATININE FOR GFR 1.15 MG/DL (0.70-1.30); GLOMERULAR FILTRATION RATE > 60.0 (>35); GLUCOSE, FASTING 102 MG/DL (74-106); POTASSIUM SERUM 4.2 MMOL/L (3.5-5.1); SODIUM LEVEL 133 MMOL/L (136-145); TOTAL PROTEIN 6.3 G/DL (5.7-8.2)
[2022-12-24 13:11] LABS: OSMOLALITY SERUM 280 MOSM/KG (280-301)
[2022-12-24] MEDS ORDERED: MED REC IN PROGRESS XX SCH (15:35)
[2022-12-24] MEDS ORDERED: MAALOX 30 ML SUSP *UDC PO PRN (16:10)
[2022-12-24] MEDS ORDERED: ACETAMINOPHEN TAB 650MG DOSE (2X325MG) PO PRN (16:10)
[2022-12-24] MEDS ORDERED: MOM 30ML SUSPENSION UDC PO PRN (16:10)
[2022-12-24] MEDS ORDERED: FLUO0.0119 AS (16:16)
[2022-12-24] MEDS ORDERED: HOME MED LIST COMPLETE! XX SCH (16:20)
[2022-12-24] MEDS ORDERED: NITROGLYCERIN 0.4MG SUBL TABLET SL PRN (16:30)
[2022-12-24] MEDS: SENOKOT S TAB PO SCH (20:20)
[2022-12-24] MEDS: OMEPRAZOLE 20MG CAP PO SCH (20:20)
[2022-12-24] MEDS: DOCUSATE SODIUM 100MG CAPSULE PO SCH (20:21)
[2022-12-24] MEDS: APIXABAN 5 MG TAB (ELIQUIS) PO SCH (20:21)
[2022-12-24] MEDS ORDERED: LISINOPRIL *2.5 MG* TAB PO SCH (21:00)
[2022-12-24] MEDS ORDERED: SIMVASTATIN 10 MG TAB PO SCH (21:00)
[2022-12-25 04:00] VITALS: BP 138/71; TEMP 97.4; O2SAT 100
[2022-12-25 05:02] LABS: BASO # 0.1 10^3/uL (0.0-0.2); BASO % 1.1 % (0.0-1.0); EOS # 0.3 10^3/uL (0.0-0.5); EOS % 3.8 % (0.0-3.0); HEMATOCRIT 34.4 % (42.0-52.0); HEMOGLOBIN 11.9 g/dl (13.5-17.5); LYMPH # 1.1 10^3/uL (1.5-5.0); LYMPH % 16.1 % (24.0-44.0); MEAN CORPUSCULAR HEMOGLOBIN 33.5 pg (27.0-33.0); MEAN CORPUSCULAR HGB CONC 34.6 g/dl (32.0-36.5); MEAN CORPUSCULAR VOLUME 96.9 fl (80.0-96.0); MONO % 15.7 % (2.0-8.0); NEUTROPHILS # 4.2 10^3/uL (1.5-8.5); NEUTROPHILS % 62.8 % (36.0-66.0); PLATELET COUNT, AUTOMATED 173 10^3/uL (150-450); RED BLOOD COUNT 3.55 10^6/uL (4.30-6.10); WHITE BLOOD COUNT 6.6 10^3/uL (4.0-10.0)
[2022-12-25 05:24] LABS: BLOOD UREA NITROGEN 21 MG/DL (9-23); CALCIUM LEVEL 8.6 MG/DL (8.3-10.6); CARBON DIOXIDE LEVEL 28 MMOL/L (20-31); CHLORIDE LEVEL 100 MMOL/L (98-107); CREATININE FOR GFR 1.13 MG/DL (0.70-1.30); GLOMERULAR FILTRATION RATE > 60.0 (>35); GLUCOSE, FASTING 97 MG/DL (74-106); MAGNESIUM LEVEL 1.8 MG/DL (1.8-2.4); SODIUM LEVEL 135 MMOL/L (136-145)
[2022-12-25 08:12] VITALS: BP 163/76; TEMP 96; O2SAT 91
[2022-12-25] MEDS ORDERED: FUROSEMIDE 20 MG TAB PO SCH (09:00)
[2022-12-25] MEDS ORDERED: MIRALAX *UNIT DOSE* 17GM PACKET PO SCH (09:00)
[2022-12-25] MEDS ORDERED: VITAMIN B COMPLEX/VIT C CAP PO SCH (09:00)
[2022-12-25] MEDS ORDERED: MAGNESIUM OXIDE 400MG TAB (MAG-OX) PO SCH (09:00)
[2022-12-25] MEDS ORDERED: amLODIPine 5 MG TAB PO SCH (09:00)
[2022-12-25] MEDS ORDERED: VITAMIN D 1,000 INTERNATIONAL UNITS TABLET PO SCH (09:00)
[2022-12-25] MEDS: OMEPRAZOLE 20MG CAP PO SCH (09:42)
[2022-12-25] MEDS: SENOKOT S TAB PO SCH (09:42)
[2022-12-25 09:43] VITALS: BP 163/76
[2022-12-25] MEDS: DOCUSATE SODIUM 100MG CAPSULE PO SCH (09:43)
[2022-12-25] MEDS: APIXABAN 5 MG TAB (ELIQUIS) PO SCH (09:43)
[2022-12-25 10:58] VITALS: BP 139/60
[2022-12-25] MEDS ORDERED: AMLO1TAB25 PO (12:07)
[2022-12-26] MEDS ORDERED: AMLO1TAB25 PO (14:31)
== END 2022-12-25 13:19 | disposition home or self-care (01) ==
LOC: EDBD 11:01 → M ED 11:01 → M ED INP 11:02 → M PCU 18:54
PROVIDERS: ADMIT Internal Medicine; ATTEND Internal Medicine
DX: R41.82 Altered mental status, unspecified (principal); G93.41 Metabolic encephalopathy; F03.90 Unspecified dementia, unspecified severity, without behavioral disturbance, psychotic disturbance, mood disturbance, and anxiety; I12.9 Hypertensive chronic kidney disease with stage 1 through stage 4 chronic kidney disease, or unspecified chronic kidney disease; N18.30 Chronic kidney disease, stage 3 unspecified; Z86.73 Personal history of transient ischemic attack (TIA), and cerebral infarction without residual deficits; E78.5 Hyperlipidemia, unspecified; I48.91 Unspecified atrial fibrillation; I25.10 Atherosclerotic heart disease of native coronary artery without angina pectoris; G47.33 Obstructive sleep apnea (adult) (pediatric); Z85.72 Personal history of non-Hodgkin lymphomas; N40.0 Benign prostatic hyperplasia without lower urinary tract symptoms; Z79.01 Long term (current) use of anticoagulants; Z79.899 Other long term (current) drug therapy; Z88.8 Allergy status to other drugs, medicaments and biological substances; J30.2 Other seasonal allergic rhinitis
CPT/HCPCS: 36415; 70450; 70551; 71045; 80048; 80076; 81001; 82140; 82803; 83605; 83735; 83930; 84443; 85025; 87486; 87581; 87633; 87798; 93005; 93041; 94760; 99285; G0378

== ENCOUNTER 2022-12-26 08:00 | Observation (INO) | payer MEDICARE, BC ==
[~2022-12-26] VITALS: Ht 172.7 cm; Wt 87.0 kg
[~2022-12-26 08:00] MED LIST changes: +FLUO0.0119 AS; +FURO20TA2 PO
[2022-12-26 08:31] LABS: BASO # 0.1 10^3/uL (0.0-0.2); BASO % 0.8 % (0.0-1.0); EOS # 0.3 10^3/uL (0.0-0.5); EOS % 3.8 % (0.0-3.0); HEMATOCRIT 33.9 % (42.0-52.0); HEMOGLOBIN 11.8 g/dl (13.5-17.5); LYMPH # 0.9 10^3/uL (1.5-5.0); LYMPH % 11.7 % (24.0-44.0); MEAN CORPUSCULAR HEMOGLOBIN 33.8 pg (27.0-33.0); MEAN CORPUSCULAR HGB CONC 34.8 g/dl (32.0-36.5); MEAN CORPUSCULAR VOLUME 97.1 fl (80.0-96.0); MONO # 0.8 10^3/uL (0.0-0.8); MONO % 11.3 % (2.0-8.0); NEUTROPHILS # 5.3 10^3/uL (1.5-8.5); NEUTROPHILS % 71.9 % (36.0-66.0); PLATELET COUNT, AUTOMATED 185 10^3/uL (150-450); RED BLOOD COUNT 3.49 10^6/uL (4.30-6.10); WHITE BLOOD COUNT 7.4 10^3/uL (4.0-10.0)
[2022-12-26 08:58] LABS: CK-MB VALUE MASS 1.9 NG/ML (<3.6)
[2022-12-26 09:00] LABS: LIPASE 24 U/L (12-53)
[2022-12-26 09:01] LABS: CPK CREATINE PHOSPHOKINASE 78 U/L (46-171); MB/CK RELATIVE INDEX 2.43 (< OR =4)
[2022-12-26 09:02] LABS: THYROID STIMULATING HORMONE 1.899 uIU/ML (0.55-4.78)
[2022-12-26 09:03] LABS: FREE T4 1.23 NG/DL (0.89-1.76)
[2022-12-26 09:07] LABS: PROCALCITONIN <0.04 ng/ml
[2022-12-26 09:09] LABS: ALBUMIN 3.3 G/DL (3.2-5.2); ALKALINE PHOSPHATASE 127 U/L (46-116); ALT/SGPT 18 U/L (7.0-40); AST/SGOT 24 U/L (<34); BILIRUBIN,DIRECT 0.3 MG/DL (<0.4); BILIRUBIN,TOTAL 0.8 MG/DL (0.3-1.2); BLOOD UREA NITROGEN 23 MG/DL (9-23); CALCIUM LEVEL 8.6 MG/DL (8.3-10.6); CARBON DIOXIDE LEVEL 27 MMOL/L (20-31); CHLORIDE LEVEL 100 MMOL/L (98-107); CREATININE FOR GFR 1.23 MG/DL (0.70-1.30); GLOMERULAR FILTRATION RATE 59.7 (>35); GLUCOSE, FASTING 107 MG/DL (74-106); POTASSIUM SERUM 4.1 MMOL/L (3.5-5.1); SODIUM LEVEL 135 MMOL/L (136-145); TOTAL PROTEIN 5.9 G/DL (5.7-8.2)
[2022-12-26 09:11] LABS: RSV AMPLIFICATION NEGATIVE (NEGATIVE)
[2022-12-26 10:15] LABS: CK-MB VALUE MASS 3.4 NG/ML (<3.6)
[2022-12-26 10:16] LABS: MB/CK RELATIVE INDEX 4.41 (< OR =4)
[2022-12-26] MEDS ORDERED: ISOVUE-370 76% 100ML VIAL As Ordered ONE (11:40)
[2022-12-26] MEDS: MORPHINE 2 MG/ML 1ML VIAL IV PRN ×2 (12:20→15:54)
[2022-12-26] MEDS ORDERED: MED REC IN PROGRESS XX SCH (13:25)
[2022-12-26] MEDS ORDERED: AMLO1TAB25 PO (14:31)
[2022-12-26] MEDS ORDERED: HOME MED LIST COMPLETE! XX SCH (14:35)
[2022-12-26] MEDS ORDERED: NITROGLYCERIN 0.4MG SUBL TABLET SL PRN (15:20)
[2022-12-26] MEDS ORDERED: ACETAMINOPHEN TAB 650MG DOSE (2X325MG) PO PRN (15:40)
[2022-12-26] MEDS: FUROSEMIDE 20 MG TAB PO SCH (15:54)
[2022-12-26 17:56] LABS: CK-MB VALUE MASS 1.8 NG/ML (<3.6)
[2022-12-26 17:57] LABS: MB/CK RELATIVE INDEX 1.8 (< OR =4)
[2022-12-26 18:15] VITALS: BP 144/75; TEMP 97.7; O2SAT 99
[2022-12-26 21:00] VITALS: BP 146/75; TEMP 97.9; O2SAT 94
[2022-12-26] MEDS ORDERED: SIMVASTATIN 10 MG TAB PO SCH (21:00)
[2022-12-26] MEDS ORDERED: ATORVASTATIN 20 MG TAB PO SCH (21:00)
[2022-12-26] MEDS ORDERED: LISINOPRIL *2.5 MG* TAB PO SCH (21:00)
[2022-12-26] MEDS: APIXABAN 5 MG TAB (ELIQUIS) PO SCH (21:54)
[2022-12-26] MEDS: SENOKOT S TAB PO SCH (21:54)
[2022-12-27 01:56] VITALS: BP 147/77; TEMP 97.9; O2SAT 93
[2022-12-27 02:52] LABS: CK-MB VALUE MASS 1.4 NG/ML (<3.6)
[2022-12-27 02:53] LABS: MB/CK RELATIVE INDEX 1.45 (< OR =4)
[2022-12-27 06:01] VITALS: BP 142/67; TEMP 97.5; O2SAT 95
[2022-12-27] MEDS: FUROSEMIDE 20 MG TAB PO SCH (08:28)
[2022-12-27 08:29] VITALS: BP 142/67
[2022-12-27] MEDS: APIXABAN 5 MG TAB (ELIQUIS) PO SCH (08:29)
[2022-12-27] MEDS: SENOKOT S TAB PO SCH (08:29)
[2022-12-27] MEDS ORDERED: ALBUTEROL SULFATE 2.5MG/0.5ML INH NEB SOLN NEB PRN (08:40)
[2022-12-27] MEDS ORDERED: MAGNESIUM OXIDE 400MG TAB (MAG-OX) PO ONE (09:00)
[2022-12-27] MEDS ORDERED: ASPIRIN 81MG CHEW TABLET PO SCH (09:00)
[2022-12-27] MEDS ORDERED: ISOSORBIDE MON. (IMDUR) 30MG XR TAB PO SCH (09:00)
[2022-12-27 10:00] VITALS: BP 90/50; TEMP 98.8; O2SAT 97
[2022-12-27] MEDS ORDERED: IPRATROPIUM 0.5MG/ALBUTEROL 2.5MG INH SOL UD 3ML (DUONEB) NEB SCH (12:00)
[2022-12-27] MEDS ORDERED: ISOS1TAB35 PO (12:17)
== END 2022-12-27 15:21 | disposition home or self-care (01) ==
LOC: EDBD 08:00 → M ED 08:00 → M ED INP 15:39 → ENRESERV 16:30 → M MSPAV 18:11
PROVIDERS: ADMIT Student in an Organized Health Care Education/Training Program; ATTEND Student in an Organized Health Care Education/Training Program
DX: R07.89 Other chest pain (principal); I48.20 Chronic atrial fibrillation, unspecified; F03.90 Unspecified dementia, unspecified severity, without behavioral disturbance, psychotic disturbance, mood disturbance, and anxiety; I25.10 Atherosclerotic heart disease of native coronary artery without angina pectoris; I13.0 Hypertensive heart and chronic kidney disease with heart failure and stage 1 through stage 4 chronic kidney disease, or unspecified chronic kidney disease; E78.5 Hyperlipidemia, unspecified; G47.33 Obstructive sleep apnea (adult) (pediatric); K59.09 Other constipation; Z85.72 Personal history of non-Hodgkin lymphomas; I27.20 Pulmonary hypertension, unspecified; Z79.01 Long term (current) use of anticoagulants; Z79.899 Other long term (current) drug therapy; Z88.8 Allergy status to other drugs, medicaments and biological substances; J30.2 Other seasonal allergic rhinitis; I50.32 Chronic diastolic (congestive) heart failure; Z96.651 Presence of right artificial knee joint; N18.30 Chronic kidney disease, stage 3 unspecified
CPT/HCPCS: 36415; 71045; 71275; 74177; 80048; 80076; 82550; 82553; 83690; 83735; 83880; 84145; 84439; 84443; 84484; 85025; 87040; 87077; 87186; 87631; 93005; 93041; 94640; 94760; 96374; 96376; 99285; G0378; Q9967

== ENCOUNTER → 2023-11-13 | Outpatient (CLI) | payer MEDICARE, BC ==
[~2023-11-13] MED LIST changes: +AMOX250C PO; +ISOS1TAB35 PO; +MAPA500C PO; +SERT-141 PO
== END ==
LOC: M WUC 11:43
PROVIDERS: ATTEND Internal Medicine
DX: R06.02 Shortness of breath (principal); R05.9 Cough, unspecified; I51.7 Cardiomegaly